=== PATIENT | female | born 1955 | race Caucasian/White ===

== ENCOUNTER 2016-07-27 01:20 | Observation (INO) | payer OTHER ==
[2016-07-27] MEDS ORDERED: DUONEB 0.5-3 MG/3 ml Neb IH ONE ×3 (01:31→06:32)
[2016-07-27] MEDS ORDERED: Reglan 10 MG/2 ML IV ONE (01:33)
[2016-07-27] MEDS ORDERED: Sodium Chloride 0.9% 1000 ML 1,000 ML IV SCH ×2 (01:45→05:48)
[2016-07-27 01:46] LABS: Mean Cell Volume 94.3 fl (78-100); Mean Corpuscular Hemoglobin 28.7 pg (26-32); Mean Platelet Volume 9.5 fl (6-9.5); Platelet Count 494 K/mm3 (150-450); Red Blood Count 4.18 M/mm3 (4.1-5.4); Red Cell Distribution Width 17.6 % (11.5-14.0); White Blood Count 19.4 K/mm3 (4.0-10.5)
[2016-07-27 01:55] LABS: Lactic Acid 2.2 (0.4-2.0); VBG BASE EXCESS 5.1 (-2.0-2.0); VBG CARBOXYHEMOGLOBIN 7.7 % T HGB (0.0-6.9); VBG HCO3- 32.4 meq/L (22-28); VBG HEMOGLOBIN 11.7; VBG O2 SATURATION 80.6 (95-100); VBG POTASSIUM 3.5 (3.5-5.1); VBG pH 7.34 (7.32-7.42)
--- NOTE | 2016-07-27 01:56 | ERPHSYRPT ---
- History of Present Illness Time Seen by Provider: 07/27/16 01:23 Source: patient, family Physician History: CC: headache Hx: 60 y/o patient of Dr Bean. She has chronic pain syndrome. Basically home bound and gets house calls. She has increased rib, shoulder, hip pain. Uses fentanyl patch. She might be on abtx for unknown reason. She has increased headache over her normal headaches so family wanted to her to come to the hospital. She was upset with family and did not want to come. By the time she was back she was very short of breath and had been off her home oxygen. She reports increased dyspnea all day today. Mild chronic cough. No fever or chills. No fall or injury reported. Pt and are poor historians. Timing/Duration: today Severity: severe Allergies/Adverse Reactions: aspirin [From Aspirin Regimen Cheri/Calcium] Adverse Reaction (Mild, Verified 11:03) Nausea calcium carbonate [From Aspirin Regimen Cheri/Calcium] Adverse Reaction (Mild, Verified 11/18/15 11:03) Nausea Home Medications: Albuterol Sulfate [Ventolin Hfa] 18 gm IH QID 07/27/16 [History] Amitriptyline HCl 100 mg PO HS 07/27/16 [History] Bisacodyl 5 mg [Dulcolax 5 mg] 5 mg PO DAILY PRN 07/27/16 [History] Cefdinir [Omnicef] 300 mg PO BID 07/27/16 [History] Escitalopram Oxalate [Lexapro] 20 mg PO DAILY 07/27/16 [History] Famotidine 20 mg [Pepcid 20 MG] 20 mg PO HS 07/27/16 [History] Fentanyl 1 each TD Q3D 07/27/16 [History] Fluticasone/Salmeterol 230/21 [Advair Hfa 230/21 Mcg COMMON CANISTER*] 2 puff IH BIDRT 07/27/16 [History] Hydrocodone Bit/Acetaminophen [Fluker 10-325 Tablet] 1 each PO QID PRN 07/27/16 [ History] Ipratropium [place] Hfa [Atrovent HFA MDI] 2 puff IH BID 07/27/16 [History] Loratadine 10 mg [Claritin 10 mg] 10 mg PO DAILY 07/27/16 [History] Lorazepam 1 mg [Ativan 1 MG] 1 mg PO BID 07/27/16 [History] Naproxen 500 mg PO QID PRN 07/27/16 [History] Olanzapine Odt 5 mg [Zyprexa Zydis 5 MG] 5 mg PO BID 07/27/16 [History] PANTOPRAZOLE 40 mg Tablet [Protonix 40MG Tablet] 40 mg PO DAILY 07/27/16 [ History] Potassium Chloride 10 Meq Tab* [Klor Con 10 MEQ] 10 meq PO BID 07/27/16 [ History] Pramipexole Di-HCl [Mirapex] 0.125 mg PO HS 07/27/16 [History] Prednisone 10 mg [Deltasone 10 mg] 10 mg PO DAILY 07/27/16 [History] Pregabalin [Lyrica 100Mg] 200 mg PO BID 07/27/16 [History] Primidone 50 MG [Mysoline 50Mg] 50 mg PO BID 07/27/16 [History] Promethazine HCl 12.5 mg PO QID PRN 07/27/16 [History] Roflumilast [Daliresp] 500 mcg PO HS 07/27/16 [History] Tizanidine HCl 2 mg PO HS 07/27/16 [History] Trazodone HCl 50 mg [Desyrel 50 mg] 50 mg PO HS 07/27/16 [History] Hx Tetanus, Diphtheria Vaccination/Date Given: Yes Hx Influenza Vaccination/Date Given: No Hx Pneumococcal Vaccination/Date Given: No - Review of Systems Constitutional: Fatigue, Malaise, Weakness, No Fever, No Chills Eyes: No Symptoms Ears, Nose, & Throat: No Symptoms Respiratory: Cough, Dyspnea (worse with exertion) Cardiac: Chest Pain (rib) Abdominal/Gastrointestinal: No Nausea, No Vomiting Musculoskeletal: Back Pain, Joint Pain (shoulder and hips), No Injury Skin: No Rash Neurological: Headache, No Focal Weakness All Other Systems: Reviewed and Negative - Past Medical History Pertinent Past Medical History: Yes Neurological History: Dementia, Migraines ENT History: No Pertinent History Cardiac History: No Pertinent History Respiratory History: COPD Endocrine Medical History: Hypothyroidism Musculoskeletal History: Fibromyalgia, Osteoarthritis, Osteoporosis GI Medical History: GERD, Hernia History: No Pertinent History Psycho-Social History: Anxiety, Bipolar, Depression, Eating Disorders, Panic Disorder Female Reproductive Disorders: Abnormal Uterine Bleeding Other Medical History: NEURO CHANGES TO LEGS AND ARMS - Past Surgical History Past Surgical History: Yes Neuro Surgical History: No Pertinent History Cardiac: No Pertinent History Respiratory: No Pertinent History Gastrointestinal: No Pertinent History Genitourinary: No Pertinent History Musculoskeletal: No Pertinent History Female Surgical History: No Pertinent History Other Surgical History: scope on lungs last yr,bx done"cleaned my lungs", childbirth natural x three,jaw screws place -had rib bone placed to jaw,fatty tumors removed from back and right hand,right hand nodule removed in september 2011 - Social History Smoking Status: Former smoker (smoked 1 1/2 ppd up to two weeks ago) How long have you smoked: 44 Exposure to second hand smoke: No Alcohol Use: None Drug Use: none Patient Lives Alone: No Significant Family History: no pertinent family hx - Female History Hx Now: No - Nursing Vital Signs Nursing Vital Signs: Initial Vital Signs Temperature 97.4 F Temperature Source Rectal Pulse Rate 90 Respiratory Rate 14 Blood Pressure [] 102/51 Pain Intensity 8 - Physical Exam General Appearance: alert Eye Exam: PERRL/EOMI Ears, Nose, Throat Exam: moist mucous membranes Neck Exam: supple Respiratory Exam: respiratory distress (arrived tachypneic), wheezing Cardiovascular Exam: regular rate/rhythm Gastrointestinal/Abdomen Exam: soft, No tenderness, No distention Back Exam: normal inspection Extremity Exam: normal inspection, No pedal edema Neurologic Exam: alert, other (slightly confused), No motor deficits Skin Exam: warm, dry, No rash - Course Nursing assessment & vital signs reviewed: Yes EKG Interpreted by Me: RATE (93), Sinus Rhythm, NORMAL AXIS, NORMAL INTERVALS ( QTc 423), NORMAL QRS, NORMAL ST-T - Radiology Exams cxr X-ray Interpretation: Reviewed by me (copd) - CT Exams head CT Interpretation: Negative, Tele-radiologist Report Ordered Tests: Active Orders 24 hr Category Date Time Status CO2 Monitoring STAT Care 07/27/16 01:31 Active Interstate Planner STAT Care 07/27/16 01:31 Active EKG-ER Only STAT Care 07/27/16 01:31 Active IV Insertion STAT Care 07/27/16 01:31 Active Oxygen-ED Only NASAL CANNULA 3 lpm Care 07/27/16 01:31 Active Pulse Oximetry (ED) STAT Care 07/27/16 01:31 Active Rectal Temperature STAT Care 07/27/16 01:31 Active CHEST 1 VIEW (PORTABLE) Stat Exams 07/27/16 01:31 Taken HEAD WITHOUT CONTRAST [CT] Stat Exams 07/27/16 03:35 Taken CBC W DIFF Stat Lab 07/27/16 01:40 Completed CMP Stat Lab 07/27/16 01:40 Completed Lactic Acid Stat Lab 07/27/16 03:31 Completed Lactic Acid Urgent Lab 07/27/16 01:31 Completed MAGNESIUM Stat Lab 07/27/16 01:40 Completed Manual Differential NC Stat Lab 07/27/16 01:40 Completed PROTIME WITH INR Stat Lab 07/27/16 01:40 Completed PTT Stat Lab 07/27/16 01:40 Completed TROPONIN Stat Lab 07/27/16 01:40 Completed VENOUS BLOOD GAS Urgent Lab 07/27/16 01:31 Completed Respiratory Nebulizer STAT RT 07/27/16 01:32 Completed Medication Summary Generic Name Dose Route Start Last Admin Trade Name Freq PRN Reason Stop Dose Admin Sodium Chloride 1,000 mls @ 50 mls/hr 07/27/16 01:45 07/27/16 02:08 Sodium Chloride 0.9% 1000 Ml IV 08/26/16 01:44 50 mls/hr .Q20H ALFIE Administration Magnesium Sulfate/Dextrose 100 mls @ 100 mls/hr 07/27/16 02:30 07/27/16 02:59 Magnesium 1 Gm / 100 Ml D5w IV 07/27/16 04:29 100 mls/hr Q1H ALFIE Administration Discontinued Medications Generic Name Dose Route Start Last Admin Trade Name Freq PRN Reason Stop Dose Admin Albuterol/Ipratropium 3 ml 07/27/16 01:31 07/27/16 02:11 Duoneb 0.5-3 Mg/3 Ml Neb IH 07/27/16 01:32 3 ml STAT ONE Administration Albuterol/Ipratropium Confirm 07/27/16 01:32 Duoneb 0.5-3 Mg/3 Ml Neb Administered 07/27/16 01:33 Dose 3 ml IH .STK-MED ONE Fentanyl Citrate 25 mcg 07/27/16 02:50 07/27/16 03:05 Sublimaze 100 Mcg/2 Ml IV 07/27/16 02:51 25 mcg STAT ONE Administration Fentanyl Citrate Confirm 07/27/16 03:00 Sublimaze 100 Mcg/2 Ml Administered 07/27/16 03:01 Dose 100 mcg .ROUTE .STK-MED ONE Fentanyl Citrate 50 mcg 07/27/16 04:17 07/27/16 04:32 Sublimaze 100 Mcg/2 Ml IV 07/27/16 04:18 50 mcg STAT ONE Administration Fentanyl Citrate Confirm 07/27/16 04:27 Sublimaze 100 Mcg/2 Ml Administered 07/27/16 04:28 Dose 100 mcg .ROUTE .STK-MED ONE Metoclopramide HCl 10 mg 07/27/16 01:33 07/27/16 02:08 Reglan 10 Mg/2 Ml IV 07/27/16 01:34 10 mg STAT ONE Administration Metoclopramide HCl Confirm 07/27/16 02:00 Reglan 10 Mg/2 Ml Administered 07/27/16 02:01 Dose 10 mg .ROUTE .STK-MED ONE Lab/Rad Data: Laboratory Result Diagrams 07/27/16 01:40 07/27/16 01:40 Laboratory Results 07/27/16 07/27/16 07/27/16 Range/Units 03:31 01:40 01:40 WBC (4.0-10.5) K/mm3 RBC (4.1-5.4) M/mm3 Hgb (12.0-16.0) gm/dl Hct (35-47) % MCV (78-100) fl MCH (26-32) pg MCHC (32-36) g/dl RDW (11.5-14.0) % Plt Count (150-450) K/mm3 MPV (6-9.5) fl Segmented Neutrophils (36.0-66.0) % Lymphocytes (Manual) (24-44) % Monocytes (Manual) (0.0-12.0) % Eosinophils (Manual) (0.00-3.0) % Differential Comment Platelet Estimate (NORMAL) INR 0.88 (0.8-3.0) APTT 32.2 (25.3-37.0) SECONDS VBG pH (7.32-7.42) VBG pCO2 at Pat Temp (42-55) mm/Hg VBG pO2 at Pat Temp (25-40) mm/Hg VBG HCO3 (22-28) meq/L VBG O2 Sat (Noman) (95-100) VBG Base Excess (-2.0-2.0) VBG Hemoglobin VBG Carboxyhemoglobin (0.0-6.9) % T HGB POC Potassium (3.5-5.1) Sodium 143 (136-145) mEq/L Potassium 3.7 (3.5-5.1) mEq/L Chloride 102 (98-107) mEq/L Carbon Dioxide 31.6 (21-32) mEq/L Anion Gap 12.7 (5-15) MEQ/L BUN 15 (9-20) mg/dL Creatinine 0.91 (0.55-1.30) mg/dl Estimated GFR > 60 ML/MIN Glucose 160 H (70-110) MG/DL Lactic Acid 1.9 (0.4-2.0) Calcium 9.6 (8.5-10.1) mg/dL Magnesium 1.7 L (1.8-2.4) mg/dL Total Bilirubin 0.1 L (0.2-1.0) mg/dL AST 14 L (15-37) U/L ALT 19 (12-78) U/L Alkaline Phosphatase 121 H (46-116) U/L Troponin I < 0.017 (0.000-0.056) ng/ml Serum Total Protein 7.1 (6.4-8.2) gm/dL Albumin 3.1 L (3.4-5.0) g/dL 07/27/16 07/27/16 Range/Units 01:40 01:31 WBC 19.4 H (4.0-10.5) K/mm3 RBC 4.18 (4.1-5.4) M/mm3 Hgb 12.0 (12.0-16.0) gm/dl Hct 39.4 (35-47) % MCV 94.3 (78-100) fl MCH 28.7 (26-32) pg MCHC 30.5 L (32-36) g/dl RDW 17.6 H (11.5-14.0) % Plt Count 494 H (150-450) K/mm3 MPV 9.5 (6-9.5) fl Segmented Neutrophils 61 (36.0-66.0) % Lymphocytes (Manual) 28 (24-44) % Monocytes (Manual) 10 (0.0-12.0) % Eosinophils (Manual) 1 (0.00-3.0) % Differential Comment NORMAL Platelet Estimate INCREASED (NORMAL) INR (0.8-3.0) APTT (25.3-37.0) SECONDS VBG pH 7.34 (7.32-7.42) VBG pCO2 at Pat Temp 60 H (42-55) mm/Hg VBG pO2 at Pat Temp 41 H (25-40) mm/Hg VBG HCO3 32.4 H* (22-28) meq/L VBG O2 Sat (Noman) 80.6 L (95-100) VBG Base Excess 5.1 H (-2.0-2.0) VBG Hemoglobin 11.7 VBG Carboxyhemoglobin 7.7 H* (0.0-6.9) % T HGB POC Potassium 3.5 (3.5-5.1) Sodium (136-145) mEq/L Potassium (3.5-5.1) mEq/L Chloride (98-107) mEq/L Carbon Dioxide (21-32) mEq/L Anion Gap (5-15) MEQ/L BUN (9-20) mg/dL Creatinine (0.55-1.30) mg/dl Estimated GFR ML/MIN Glucose (70-110) MG/DL Lactic Acid 2.2 H (0.4-2.0) Calcium (8.5-10.1) mg/dL Magnesium (1.8-2.4) mg/dL Total Bilirubin (0.2-1.0) mg/dL AST (15-37) U/L ALT (12-78) U/L Alkaline Phosphatase (46-116) U/L Troponin I (0.000-0.056) ng/ml Serum Total Protein (6.4-8.2) gm/dL Albumin (3.4-5.0) g/dL - Progress Progress Note: 07/27/16 04:55 Pt was very short of breath on arrival. This improved with nebs and oxygen and rest. Pt states she uses a wheelchair at home and rarely ambulates. She also uses home oxygen. The arthritis pain was better after reglan but headache continued. Fentanyl given as well as mag sulfate without improvement in headache so CT was done which is negative. She does not want to go home as she feels poorly. No fever. She does appear to have COPD exac. Leukocytosis possibly secondary to chronic prednisone use. Called Dr Bean who advised melissa bran. Will see patient in: hospital (observation) Counseled pt/family regarding: lab results, diagnosis, need for follow-up, rad results - Departure Time of Disposition: 04:57 Departure Disposition: Observation Clinical Impression: COPD with exacerbation, Headache Condition: Fair Critical Care Time: No
[2016-07-27] MEDS ORDERED: Reglan 10 MG/2 ML ONE (02:00)
[2016-07-27] MEDS ORDERED: Sodium Chloride 0.9% 1000 ML 1,000 ML ONE (02:00)
[2016-07-27 02:09] LABS: INR 0.88 (0.8-3.0); PROTIME 9.9 SECONDS (9.95-12.35)
[2016-07-27 02:11] LABS: PTT 32.2 SECONDS (25.3-37.0)
[2016-07-27 02:20] LABS: ALBUMIN 3.1 g/dL (3.4-5.0); ALKALINE PHOSPHATASE 121 U/L (46-116); ANION GAP 12.7 MEQ/L (5-15); BILIRUBIN,TOTAL 0.1 mg/dL (0.2-1.0); BLOOD UREA NITROGEN 15 mg/dL (9-20); CHLORIDE 102 mEq/L (98-107); Carbon Dioxide 31.6 mEq/L (21-32); Glucose 160 MG/DL (70-110); MAGNESIUM 1.7 mg/dL (1.8-2.4); Potassium 3.7 mEq/L (3.5-5.1); SGOT/AST 14 U/L (15-37); SGPT/ALT 19 U/L (12-78); SODIUM 143 mEq/L (136-145); Total Protein 7.1 gm/dL (6.4-8.2)
[2016-07-27 02:23] LABS: TROPONIN < 0.017 ng/ml (0.000-0.056)
[2016-07-27] MEDS ORDERED: Magnesium 1 Gm / 100 Ml D5W*** 200 ML IV ONE (02:30)
[2016-07-27] MEDS: Magnesium 1 Gm / 100 Ml D5W*** 100 ML IV SCH ×2 (02:31→02:59)
[2016-07-27 02:50] LABS: Eosinophil 1 % (0.00-3.0); Platelet Estimate INCREASED (NORMAL); Total Cells Counted 100
[2016-07-27] MEDS ORDERED: SUBLIMAZE 100 MCG/2 ML IV ONE ×2 (02:50→04:17)
[2016-07-27] MEDS ORDERED: SUBLIMAZE 100 MCG/2 ML ONE ×2 (03:00→04:27)
[2016-07-27] MEDS ORDERED: PROVENTIL 2.5 MG/3 ML NEB IH ONE ×2 (04:59→05:18)
[2016-07-27] MEDS ORDERED: ROCEPHIN 1 Gm-D5w 50 ml Bag** 1 G/50 ML IVPB IV ONE ×2 (04:59→05:10)
[2016-07-27] MEDS ORDERED: TYLENOL 325 MG PO PRN (05:48)
[2016-07-27] MEDS: DUONEB 0.5-3 MG/3 ml Neb IH SCH ×5 (06:55→23:56)
[2016-07-27] MEDS ORDERED: Norco 10/325 MG Tablet PO PRN (08:57)
[2016-07-27] MEDS ORDERED: NON-FORMULARY ITEM (Promethazine Hcl [Promethazine Hcl] 12.5 MG) PO PRN (08:57)
[2016-07-27] MEDS ORDERED: DULCOLAX 5 MG PO PRN (08:57)
[2016-07-27] MEDS ORDERED: PHENERGAN 25 MG PO PRN (09:14)
--- NOTE | 2016-07-27 09:32 | XRAY ---
Indication: Short of breath. Comparison: January 01, 2016. Portable apical lordotic chest remains hyperinflated with again minimal right upper lobe fibrosis/scarring. No focal infiltrate, consolidation, or large effusion. Heart is not enlarged. Vascularity normal. Bony thorax intact again with mild osteopenia and degenerative changes. Impression: Stable nonacute hyperinflated chest with chronic features.
[2016-07-27] MEDS ORDERED: Zanaflex 4 MG PO PRN (09:33)
--- NOTE | 2016-07-27 09:34 | XRAY ---
Indication: Headache. Multiple contiguous axial images obtained through the head without contrast. Comparison: November 25, 2010. Stable right anterior internal capsule remote lacunar infarct. No acute intracranial hemorrhage, abnormal extra-axial fluid collection, or mass effect. Fourth ventricle is midline without hydrocephalus. Douglas-white matter differentiation preserved. Bony calvarium intact. Visualized paranasal sinuses are clear. There is now partial opacification of the right mastoid air cells. Impression: 1. Stable right internal capsule lacunar infarct. 2. No acute intracranial abnormalities. 3. New partial opacification of the right mastoid air cells presumed inflammatory. Comment: Preliminary interpretation was made by [facility]. No critical discrepancy. CTDI 71.05
[2016-07-27] MEDS: Protonix 40MG Tablet PO SCH (10:00)
[2016-07-27] MEDS ORDERED: NON-FORMULARY ITEM (Escitalopram Oxalate [Lexapro] 20 MG) PO SCH (10:00)
[2016-07-27] MEDS: Advair Hfa 230/21 Mcg COMMON CANISTER IH SCH ×3 (10:59→19:22)
[2016-07-27 12:44] LABS: COMPLETE URINE MICROSCOPIC? NO; Collection Type VOID; Ph 5.5 (5-6)
[2016-07-27] MEDS: DELTASONE 10 MG PO SCH (13:18)
[2016-07-27] MEDS: Lexapro 10 MG PO SCH (13:18)
[2016-07-27] MEDS: Ativan 1 MG PO SCH ×2 (13:18→21:52)
[2016-07-27] MEDS: Klor Con 10 MEQ PO SCH ×2 (13:18→21:51)
[2016-07-27] MEDS: zyPREXA 5MG TABLET PO SCH ×2 (13:19→21:52)
[2016-07-27] MEDS: LYRICA 100MG PO SCH ×2 (13:19→21:52)
[2016-07-27] MEDS: MYSOLINE 50MG PO SCH (13:19)
[2016-07-27] MEDS: CLARITIN 10 MG PO SCH (13:19)
--- NOTE | 2016-07-27 15:24 | PCM.HP ---
History of Present Illness - Chief Complaint Chief Complaint: Headache and COPD exacerbation History of Present Illness: is a 60 year old female pt of mine from [facility] with chronic COPD and chronic pain from osteonecrosis who was brought to ER last night. She has no memory of why she was brought in. Per ER note it was due to increased headache. The ER stated pt wanted to stay last night. Today she is asking to go home. Pt does have some dementia that seems to wax and wane in intensity. - Review of Systems All Other Systems: Unable due to dementia Medications & Allergies Home Medications: Home Medication List Albuterol Sulfate [Ventolin Hfa] 18 gm IH QID 07/27/16 [History Confirmed ] Albuterol/Ipratropium 3ml Neb* [DUONEB 0.5-3 MG/3 ml Neb] 3 ml IH QID [History Confirmed 07/27/16] Amitriptyline HCl 100 mg PO HS 07/27/16 [History Confirmed 07/27/16] Bisacodyl 5 mg [Dulcolax 5 mg] 5 mg PO DAILY PRN 07/27/16 [History Confirmed 07/27/16] Cefdinir [Omnicef] 300 mg PO BID 07/27/16 [History Confirmed 07/27/16] Escitalopram Oxalate [Lexapro] 20 mg PO DAILY 07/27/16 [History Confirmed ] Famotidine 20 mg [Pepcid 20 MG] 20 mg PO HS 07/27/16 [History Confirmed ] Fentanyl 100 Mcg Patch [Duragesic 100 MCG Patch] 100 mcg TOP Q3D 07/27/16 [History Confirmed 07/27/16] Fentanyl [Duragesic 12MCG Patch] 12 mcg TOP Q3D 07/27/16 [History Confirmed ] Fluticasone/Salmeterol 230/21 [Advair Hfa 230/21 Mcg COMMON CANISTER*] 2 puff IH BIDRT 07/27/16 [History Confirmed 07/27/16] Hydrocodone Bit/Acetaminophen [[place] 10-325 Tablet] 1 each PO QID PRN PRN [History Confirmed 07/27/16] Ipratropium [place] Hfa [Atrovent HFA MDI] 2 puff IH BID 07/27/16 [History Confirmed 07/27/16] Loratadine 10 mg [Claritin 10 mg] 10 mg PO DAILY 07/27/16 [History Confirmed 07/27/16] Lorazepam 1 mg [Ativan 1 MG] 1 mg PO BID 07/27/16 [History Confirmed 07/27] Olanzapine [Zyprexa] 5 mg PO BID 07/27/16 [History Confirmed 07/27/16] PANTOPRAZOLE 40 mg Tablet [Protonix 40MG Tablet] 40 mg PO DAILY 07/27/16 [ History Confirmed 07/27/16] Potassium Chloride 10 Meq Tab* [Klor Con 10 MEQ] 10 meq PO BID 07/27/16 [ History Confirmed 07/27/16] Pramipexole Di-HCl [Mirapex] 0.125 mg PO HS 07/27/16 [History Confirmed 07/27/16 ] Prednisone 10 mg [Deltasone 10 mg] 10 mg PO DAILY 07/27/16 [History Confirmed 07/27/16] Pregabalin [Lyrica 100Mg] 200 mg PO BID 07/27/16 [History Confirmed 07/27/16] Primidone 50 MG [Mysoline 50Mg] 50 mg PO DAILY 07/27/16 [History Confirmed 07/27/16] Primidone 50 MG [Mysoline 50Mg] 100 mg PO HS 07/27/16 [History Confirmed ] Promethazine HCl 12.5 mg PO QID PRN 07/27/16 [History Confirmed 07/27/16] Roflumilast [Daliresp] 500 mcg PO HS 07/27/16 [History Confirmed 07/27/16] Tizanidine HCl 2 mg PO HS 07/27/16 [History Confirmed 07/27/16] Trazodone HCl 50 mg [Desyrel 50 mg] 50 mg PO HS 07/27/16 [History Confirmed 07/27/16] Allergies/Adverse Reactions: Allergies Allergy/AdvReac Type Severity Reaction Status Date / Time aspirin AdvReac Mild Nausea Verified 11/18/15 11:03 [From Aspirin Regimen Cheri/Calcium] calcium carbonate AdvReac Mild Nausea Verified 11/18/15 11:03 [From Aspirin Regimen Cheri/Calcium] - Past Medical History Past Medical History: Yes Neurological History: Dementia, Migraines ENT History: No Pertinent History Cardiac History: No Pertinent History Respiratory History: COPD Endocrine Medical History: Hypothyroidism Musculoskelatal History: Fibromyalgia, Osteoarthritis, Osteoporosis GI Medical History: GERD, Hernia History: No Pertinent History Pyscho-Social History: Anxiety, Bipolar, Depression, Eating Disorders, Panic Disorder Reproductive Disorders: Abnormal Uterine Bleeding Comment: NEURO CHANGES TO LEGS AND ARMS - Female History Hx Last Menstrual Period: n/a Are you now?: No - Past Surgical History Past Surgical History: Yes Neuro Surgical History: No Pertinent History Cardiac History: No Pertinent History Respiratory Surgery: No Pertinent History GI Surgical History: No Pertinent History Genitourinary Surgical Hx: No Pertinent History Musculskeletal Surgical Hx: No Pertinent History Female Surgical History: Hysterectomy, Tubal Ligation Other Surgical History: scope on lungs,bx done"cleaned my lungs",childbirth natural x three,jaw screws place -had rib bone placed to jaw,fatty tumors removed from back and right hand,right hand nodule removed in september 2011 - Social History Smoking Status: Current every day smoker How long have you smoked: 40 Exposure to second hand smoke: No Alcohol: None Drug Use: none Significant Family History: no pertinent family hx - Physical Exam Vital Signs: Vital Signs - 24 hr Temp Pulse Resp BP Pulse Ox 07/27/16 14:38 84 20 96 07/27/16 12:20 98 F 80 20 98/55 97 07/27/16 12:00 20 07/27/16 11:00 87 18 96 07/27/16 07:30 83 18 96 07/27/16 07:06 97.8 F 95 H 18 153/93 94 L 07/27/16 05:53 98.4 F 87 16 134/60 94 L 07/27/16 05:23 88 19 98 07/27/16 05:15 86 20 99 07/27/16 04:23 90 14 102/51 96 07/27/16 02:33 92 H 22 116/51 98 07/27/16 02:11 95 H 15 98 07/27/16 02:09 94 H 22 99/56 98 07/27/16 01:47 97.4 F 91 L Oxygen-Last 24 hours O2 Percentage 2 Liters = 28% O2 Percentage 3 Liters = 32% O2 Percentage 2 Liters = 28% O2 Percentage 3 Liters = 32% O2 Percentage 3 Liters = 32% O2 Percentage 3 Liters = 32% O2 Percentage 3 Liters = 32% General Appearance: no apparent distress Neurologic Exam: alert, oriented x 3, cooperative Eye Exam: eyes nml inspection Respiratory Exam: diminished breath sounds (poor air exchange), prolonged expirations, wheezing (scattered exp wheezes), No crackles/rales, No rhonchi Cardiovascular Exam: regular rate/rhythm, No murmur Back Exam: normal inspection Extremity Exam: normal inspection, No pedal edema Skin Exam: normal color, warm, dry Results - Labs Lab/Micro Results: Lab Results-Last 24 Hours 07/27/16 Range/Units 12:40 Ur Collection Type VOID Urine Color YELLOW (YELLOW) Urine Appearance CLEAR (CLEAR) Urine pH 5.5 (5-6) Ur Specific Candor >=1.030 (1.005-1.025) Urine Protein NEGATIVE (Negative) Urine Glucose (UA) NEGATIVE (NEGATIVE) mg/dL Urine Ketones NEGATIVE (NEGATIVE) Urine Nitrite NEGATIVE (NEGATIVE) Urine Bilirubin NEGATIVE (NEGATIVE) Urine Urobilinogen 0.2 (0-1) mg/dL Urine WBC (Auto) NEGATIVE (NEGATIVE) Urine RBC (Auto) NEGATIVE (0-5) Gadiel/ul Specimen Received 07/27/16 1245 - Other Procedures and Tests Respiratory Therapy 07/27/16 11:00 Respiratory Nebulizer Q4H 07/27/16 19:00 Respiratory MDI BID Assessment/Plan (1) COPD with exacerbation Current Visit: Yes Status: Acute Assessment & Plan: She started po omnicef at home. Currently on IV rocephin and zithromax. Code(s): J44.1 - CHRONIC OBSTRUCTIVE PULMONARY DISEASE W (ACUTE) EXACERBATION (2) Leukocytosis Current Visit: Yes Status: Acute Assessment & Plan: She is only on 10mg po prednisone at home daily so I don't know if this fully explains the leukocytosis or not. I told the patient we would recheck this afternoon, however I think it's in her best interest to stay and receive IV antibiotics due to the COPD exacerbation. Code(s): D72.829 - ELEVATED WHITE BLOOD CELL COUNT, UNSPECIFIED (3) Headache Current Visit: Yes Status: Resolved Qualifiers: Headache type: unspecified Headache chronicity pattern: unspecified pattern Intractability: not intractable Qualified Code(s): R51 - Headache Assessment & Plan: No complaints of VILLA today. Code(s): R51 - HEADACHE (4) Lewy body dementia Current Visit: No Status: Chronic Qualifiers: Dementia behavioral disturbance: without behavioral disturbance Qualified Code(s): G31.83 - Dementia with Lewy bodies; F02.80 - Dementia in other diseases classified elsewhere without behavioral disturbance Assessment & Plan: often she is oriented with fair memory, but she really does not remember why she had to come to the hospital last night. Code(s): G31.83 - DEMENTIA WITH LEWY BODIES; F02.80 - DEMENTIA IN OTH DISEASES CLASSD ELSWHR W/O BEHAVRL DISTURB (5) Osteonecrosis Current Visit: No Status: Chronic Assessment & Plan: chronic, in R hip, R knee particularly. At home she is largely bed bound. Prognosis is poor; she has seen Dr. Jones a few times from [facility] in and he has done hip and knee injections with some relief (shoulder injection done on L shoulder instead of R with increasing pain now in L shoulder). I don't know why they don't utilize a wheelchair more, likely due to the old house they are currently renting. Code(s): M87.9 - OSTEONECROSIS, UNSPECIFIED (6) Poor social situation Current Visit: No Status: Chronic Assessment & Plan: She lives with her SO (I believe) and her daughter, Angelica. I do home visits. The condition of the home is poor; however currently they are being evicted and I'm unsure the status of that. We did contact the daughter and she advised the pt had increasing nightmares and the daughter would like us to keep her and observe. Code(s): Z65.9 - PROBLEM RELATED TO UNSPECIFIED PSYCHOSOCIAL CIRCUMSTANCES (7) Tobacco abuse Current Visit: No Status: Chronic Assessment & Plan: Currently smoking, nicotine patch would be ok. Code(s): Z72.0 - TOBACCO USE
[2016-07-27 15:53] LABS: Mean Cell Volume 95.1 fl (78-100); Mean Platelet Volume 9.3 fl (6-9.5); Platelet Count 393 K/mm3 (150-450); Red Blood Count 3.67 M/mm3 (4.1-5.4); Red Cell Distribution Width 17.6 % (11.5-14.0); White Blood Count 14.1 K/mm3 (4.0-10.5)
[2016-07-27 15:54] LABS: Mean Corpuscular Hemoglobin 29.1 pg (26-32)
[2016-07-27 16:35] LABS: BAND 2 % (0.0-2.0); Basophil 2 % (0.0-1.0); Eosinophil 2 % (0.00-3.0); Hypochromia 1+; Metamyelocyte 4 %; Platelet Estimate NORMAL (NORMAL); Total Cells Counted 100; Toxic Granulation 1+
[2016-07-27] MEDS ORDERED: MYSOLINE 50MG PO SCH (22:00)
[2016-07-27] MEDS ORDERED: Mirapex 0.5 MG Tablet PO SCH (22:00)
[2016-07-27] MEDS ORDERED: TIZANIDINE HCL 2 MG PO SCH (22:00)
[2016-07-27] MEDS ORDERED: ROCEPHIN 1 Gm-D5w 50 ml Bag** 1 G/50 ML IVPB IV SCH (22:00)
[2016-07-27] MEDS ORDERED: NON-FORMULARY ITEM (Pramipexole Di-Hcl [Mirapex] 0.125 MG) PO SCH (22:00)
[2016-07-27] MEDS ORDERED: Zanaflex 4 MG PO SCH (22:00)
[2016-07-27] MEDS ORDERED: DESYREL 50 MG PO SCH (22:00)
[2016-07-27] MEDS ORDERED: Pepcid 20 MG PO SCH (22:00)
[2016-07-27] MEDS ORDERED: Nicoderm CQ 21 MG TOP SCH (22:15)
[2016-07-28] MEDS: DUONEB 0.5-3 MG/3 ml Neb IH SCH ×3 (03:21→10:05)
[2016-07-28] MEDS: Advair Hfa 230/21 Mcg COMMON CANISTER IH SCH (06:48)
--- NOTE | 2016-07-28 09:30 | PCM.DCORD ---
- Discharge Discharge Date: 07/28/16 Disposition: Home, Self-Care Condition: Fair Prescriptions: Continue Hydrocodone Bit/Acetaminophen [[place] 10-325 Tablet] 1 each PO QID PRN PRN PRN Reason: Pain Potassium Chloride 10 Meq Tab* [Klor Con 10 MEQ] 10 meq PO BID Ipratropium [place] Hfa [Atrovent HFA MDI] 2 puff IH BID Fluticasone/Salmeterol 230/21 [Advair Hfa 230/21 Mcg COMMON CANISTER*] 2 puff IH BIDRT Albuterol Sulfate [Ventolin Hfa] 18 gm IH QID Prednisone 10 mg [Deltasone 10 mg] 10 mg PO DAILY Loratadine 10 mg [Claritin 10 mg] 10 mg PO DAILY Famotidine 20 mg [Pepcid 20 MG] 20 mg PO HS Cefdinir [Omnicef] 300 mg PO BID Roflumilast [Daliresp] 500 mcg PO HS Pramipexole Di-HCl [Mirapex] 0.125 mg PO HS Primidone 50 MG [Mysoline 50Mg] 50 mg PO DAILY Escitalopram Oxalate [Lexapro] 20 mg PO DAILY Bisacodyl 5 mg [Dulcolax 5 mg] 5 mg PO DAILY PRN PRN Reason: bowel care Trazodone HCl 50 mg [Desyrel 50 mg] 50 mg PO HS Pregabalin [Lyrica 100Mg] 200 mg PO BID Lorazepam 1 mg [Ativan 1 MG] 1 mg PO BID Promethazine HCl 12.5 mg PO QID PRN PRN Reason: Nausea PANTOPRAZOLE 40 mg Tablet [Protonix 40MG Tablet] 40 mg PO DAILY Tizanidine HCl 2 mg PO HS Amitriptyline HCl 100 mg PO HS Fentanyl [Duragesic 12MCG Patch] 12 mcg TOP Q3D Fentanyl 100 Mcg Patch [Duragesic 100 MCG Patch] 100 mcg TOP Q3D Olanzapine [Zyprexa] 5 mg PO BID Primidone 50 MG [Mysoline 50Mg] 100 mg PO HS Albuterol/Ipratropium 3ml Neb* [DUONEB 0.5-3 MG/3 ml Neb] 3 ml IH QID Follow up with: JETT RUSSELL [Primary Care Provider] -
[2016-07-28] MEDS: Lexapro 10 MG PO SCH (09:45)
[2016-07-28] MEDS: LYRICA 100MG PO SCH (09:46)
[2016-07-28] MEDS: CLARITIN 10 MG PO SCH (09:46)
[2016-07-28] MEDS: Protonix 40MG Tablet PO SCH (09:46)
[2016-07-28] MEDS: Ativan 1 MG PO SCH (09:46)
[2016-07-28] MEDS: MYSOLINE 50MG PO SCH (09:46)
[2016-07-28] MEDS: DELTASONE 10 MG PO SCH (09:46)
[2016-07-28] MEDS: Klor Con 10 MEQ PO SCH (09:46)
[2016-07-28] MEDS: zyPREXA 5MG TABLET PO SCH (09:46)
[2016-07-28] MEDS ORDERED: DURAGESIC TOP SCH (10:00)
[2016-07-28 10:38] VITALS: BP 117/59; PULSE 105; O2SAT 95
--- NOTE | 2016-07-28 19:51 | PCM.DS ---
Discharge Summary Date of Admission: 07/27/16 05:35 Date of Discharge: 07/28/16 Admitting Physician: JETT BEAN Primary Care Provider: JETT BEAN Allergies Allergies aspirin [From Aspirin Regimen Cheri/Calcium] Adverse Reaction (Mild, Verified 11:03) Nausea calcium carbonate [From Aspirin Regimen Cheri/Calcium] Adverse Reaction (Mild, Verified 11/18/15 11:03) Nausea Hospital Summary - Hospital Course Hospital Course: Natacha suffers from many co morbidities refer to Dr. Bean's H and P as she sees her in her home as she is homebound and has severe copd and her ffamily was more worried about her and brought her to the ED. She currently is a very good historian and states she felt she does well at home in her current situation with her oxygen as long as her family is there to help. She was found to have leukocytosis that improved. She was treated for mild copd exacerbation with her breathing she notes at baseline today and her pain is at her baseline today. She has chronic tremors that she states are unchanged and she is tolerating her current home meds. - Vitals & Intake/Output Vital Signs: Vital Signs Temperature 98.4 F 07/28/16 10:37 Pulse Rate 105 H 07/28/16 10:37 Respiratory Rate 20 07/28/16 10:37 Blood Pressure 117/59 07/28/16 10:37 O2 Sat by Pulse Oximetry 95 07/28/16 10:37 Oxygen-Last Documented O2 Percentage 2 Liters = 28% Intake & Output: Intake & Output 07/26/16 07/27/16 07/28/16 07/29/16 11:59 11:59 11:59 11:59 Intake Total 120 2805 Output Total 2300 Balance 120 505 Weight 81.737 kg - Lab Result Diagrams: 07/27/16 15:45 07/27/16 01:40 Micro Results-Entire Visit: Microbiology 07/27/16 12:35 Urine Culture - Preliminary Catherized GRAM POSITIVE ID AND SENSITIVITY PENDING - Procedures and Test Procedures and Tests throughout Hospitalization: Therapy Orders & Screens 07/27/16 06:20 RT Screen per Nursing Assess ONCE Comment: Protocol Order Physician Instructions: Greater than 3 points order RT Admission Screen Reason For Exam: Triggered on Admission Diagnosis: Headache and COPD exacerbation Diagnosis: Headache and COPD exacerbation Pneumonia: No Home O2: Yes Asthma: Yes CHF: No Home CPAP/BIPAP: No Home Nebs/MDI: Yes Total Points: 14 Smoking Cessation Education ONCE Comment: Diagnosis: Headache and COPD exacerbation Smoking Status: Current every day smoker How long have you smoked: 40 Have you smoked in the past 12 months: Yes Approximately how many cigarettes per day: 1.5 packs Do you dip or chew tobacco: No If,Former Smoker,when did you quit: 2 weeks ago 07/27/16 11:00 Respiratory Nebulizer Q4H Comment: DUONEB Q4 Diagnosis: Headache and COPD exacerbation 07/27/16 19:00 Respiratory MDI BID Comment: ADVAIR 230/21 BID Diagnosis: Headache and COPD exacerbation Discharge Exam General Appearance: no apparent distress, alert, anxiety Neurologic Exam: alert, oriented x 3, cooperative, normal mood/affect, other ( severe bilateral essential tremors) Skin Exam: normal color, warm, dry Eye Exam: PERRL, EOMI, eyes nml inspection Ears, Nose, Throat Exam: normal ENT inspection, pharynx normal, moist mucous membranes Neck Exam: normal inspection, non-tender, supple, full range of motion Respiratory Exam: normal breath sounds, lungs clear, No respiratory distress Cardiovascular Exam: regular rate/rhythm, murmur Gastrointestinal/Abdomen Exam: soft, No tenderness, No mass Extremity Exam: normal inspection, normal range of motion Back Exam: normal inspection, normal range of motion, No CVA tenderness, No vertebral tenderness Pelvic Exam: deferred Rectal Exam: deferred Final Diagnosis/Problem List - Final Discharge Diagnosis/Problem (1) Acute exacerbation of chronic obstructive airways disease Status: Acute (2) Depression Status: Acute (3) Lewy body dementia Status: Chronic (4) Osteonecrosis Status: Chronic (5) Poor social situation Status: Chronic (6) Tobacco abuse Status: Chronic (7) Tremor Status: Chronic - Discharge Disposition: Home, Self-Care Condition: Fair Prescriptions: Continue Hydrocodone Bit/Acetaminophen [[place] 10-325 Tablet] 1 each PO QID PRN PRN PRN Reason: Pain Potassium Chloride 10 Meq Tab* [Klor Con 10 MEQ] 10 meq PO BID Ipratropium [place] Hfa [Atrovent HFA MDI] 2 puff IH BID Fluticasone/Salmeterol 230/21 [Advair Hfa 230/21 Mcg COMMON CANISTER*] 2 puff IH BIDRT Albuterol Sulfate [Ventolin Hfa] 18 gm IH QID Prednisone 10 mg [Deltasone 10 mg] 10 mg PO DAILY Loratadine 10 mg [Claritin 10 mg] 10 mg PO DAILY Famotidine 20 mg [Pepcid 20 MG] 20 mg PO HS Cefdinir [Omnicef] 300 mg PO BID Roflumilast [Daliresp] 500 mcg PO HS Pramipexole Di-HCl [Mirapex] 0.125 mg PO HS Primidone 50 MG [Mysoline 50Mg] 50 mg PO DAILY Escitalopram Oxalate [Lexapro] 20 mg PO DAILY Bisacodyl 5 mg [Dulcolax 5 mg] 5 mg PO DAILY PRN PRN Reason: bowel care Trazodone HCl 50 mg [Desyrel 50 mg] 50 mg PO HS Pregabalin [Lyrica 100Mg] 200 mg PO BID Lorazepam 1 mg [Ativan 1 MG] 1 mg PO BID Promethazine HCl 12.5 mg PO QID PRN PRN Reason: Nausea PANTOPRAZOLE 40 mg Tablet [Protonix 40MG Tablet] 40 mg PO DAILY Tizanidine HCl 2 mg PO HS Amitriptyline HCl 100 mg PO HS Fentanyl [Duragesic 12MCG Patch] 12 mcg TOP Q3D Fentanyl 100 Mcg Patch [Duragesic 100 MCG Patch] 100 mcg TOP Q3D Olanzapine [Zyprexa] 5 mg PO BID Primidone 50 MG [Mysoline 50Mg] 100 mg PO HS Albuterol/Ipratropium 3ml Neb* [DUONEB 0.5-3 MG/3 ml Neb] 3 ml IH QID Instructions: Chronic Obstructive Pulmonary Disease, Acute Pain -- Adult Additional Instructions: does home visits on this patient. Follow up with: JETT BEAN [Primary Care Provider] - Forms: Discharge Instructions, Patient Portal Information
== END 2016-07-28 10:52 | disposition home or self-care (01) ==
LOC: ED 01:20 → MED SURG 05:35
PROVIDERS: ADMIT Family Medicine; ATTEND Family Medicine
DX: J44.1 Chronic obstructive pulmonary disease with (acute) exacerbation (principal); F33.1 Major depressive disorder, recurrent, moderate; G31.83 Neurocognitive disorder with Lewy bodies; F02.80 Dementia in other diseases classified elsewhere, unspecified severity, without behavioral disturbance, psychotic disturbance, mood disturbance, and anxiety; M87.9 Osteonecrosis, unspecified; F43.29 Adjustment disorder with other symptoms; R51 Headache; E03.9 Hypothyroidism, unspecified; Z79.899 Other long term (current) drug therapy; M79.7 Fibromyalgia; M19.90 Unspecified osteoarthritis, unspecified site; M81.0 Age-related osteoporosis without current pathological fracture; F41.9 Anxiety disorder, unspecified; Z72.0 Tobacco use; Z65.9 Problem related to unspecified psychosocial circumstances
CPT/HCPCS: 36000; 36415; 70450; 71010; 80053; 81002; 82805; 83605; 83735; 84484; 85025; 85610; 85730; 87040; 87086; 93005; 93041; 94640; 94760; 94770; 96360; 96361; 96365; 96366; 96374; 96375; 99285; G0378; J0696; J3010; J3475; A9270-GY; J7506

== ENCOUNTER 2016-09-05 16:32 | Emergency (ER) | payer OTHER ==
[2016-09-05] MEDS ORDERED: DUONEB 0.5-3 MG/3 ml Neb IH ONE ×2 (17:12→17:13)
[2016-09-05] MEDS ORDERED: Sodium Chloride 0.9% 1000 ML 1,000 ML ONE (17:19)
[2016-09-05 17:30] LABS: Mean Cell Volume 95.2 fl (78-100); Mean Platelet Volume 9.8 fl (6-9.5); Platelet Count 404 K/mm3 (150-450); Red Blood Count 3.76 M/mm3 (4.1-5.4); Red Cell Distribution Width 17.2 % (11.5-14.0); White Blood Count 14.5 K/mm3 (4.0-10.5)
[2016-09-05] MEDS ORDERED: Sodium Chloride 0.9% 1000 ML 1,000 ML IV SCH (17:30)
[2016-09-05 17:33] LABS: Mean Corpuscular Hemoglobin 29.2 pg (26-32)
[2016-09-05 17:38] LABS: ANION GAP 11.9 MEQ/L (5-15); BLOOD UREA NITROGEN 8 mg/dL (9-20); CHLORIDE 106 mEq/L (98-107); Carbon Dioxide 29.7 mEq/L (21-32); Glucose 106 MG/DL (70-110); SODIUM 144 mEq/L (136-145)
[2016-09-05 18:01] VITALS: BP 118/68
--- NOTE | 2016-09-05 18:21 | ERPHSYRPT ---
- History of Present Illness Time Seen by Provider: 09/05/16 16:35 Source: patient Exam Limitations: clinical condition Patient Subjective Stated Complaint: recent multiple falls at home. today having right ankle and foot pain. also having left knee pain. daughter states patient fell getting out of shower on saturday. has also fallen recently trying to get out of bed by self. Triage Nursing Assessment: to room per ems cot. skin w/d, color normal. resp labored, audible wheezes heard. rr is 26. numermous, multiple bruises to arms , knees, ankles and feet. right foot and ankle swollen and warm to touch. Physician History: PATIENT WITH HISTORY OF COPD, BIPOLAR DISORDER, AND FIBROMYALGIA HAS FELL OUT OF BED TWICE 3 DAYS AGO SUSTAINED INJURY TO LEFT KNEE, RIGHT FOOT. DENIES HEAD, NECK OR BACK INJURY. Timing/Duration: today Severity: mild Modifying Factors: Improves With: movement Associated Symptoms: denies symptoms Allergies/Adverse Reactions: aspirin [From Aspirin Regimen Cheri/Calcium] Adverse Reaction (Mild, Verified 16:54) Nausea calcium carbonate [From Aspirin Regimen Cheri/Calcium] Adverse Reaction (Mild, Verified 09/05/16 16:54) Nausea Home Medications: Albuterol Sulfate [Ventolin Hfa] 18 gm IH QID 07/27/16 [History] Albuterol/Ipratropium 3ml Neb* [DUONEB 0.5-3 MG/3 ml Neb] 3 ml IH QID [History] Amitriptyline HCl 100 mg PO HS 07/27/16 [History] Bisacodyl 5 mg [Dulcolax 5 mg] 5 mg PO DAILY PRN 07/27/16 [History] Escitalopram Oxalate [Lexapro] 20 mg PO DAILY 07/27/16 [History] Famotidine 20 mg [Pepcid 20 MG] 20 mg PO HS 07/27/16 [History] Fentanyl 100 Mcg Patch [Duragesic 100 MCG Patch] 100 mcg TOP Q3D 07/27/16 [History] Fentanyl [Duragesic 12MCG Patch] 12 mcg TOP Q3D 07/27/16 [History] Fluticasone/Salmeterol 230/21 [Advair Hfa 230/21 Mcg COMMON CANISTER*] 2 puff IH BIDRT 07/27/16 [History] Hydrocodone Bit/Acetaminophen [[place] 10-325 Tablet] 1 each PO QID PRN PRN [History] Ipratropium [place] Hfa [Atrovent HFA MDI] 2 puff IH BID 07/27/16 [History] Loratadine 10 mg [Claritin 10 mg] 10 mg PO DAILY 07/27/16 [History] Lorazepam 1 mg [Ativan 1 MG] 1 mg PO BID 07/27/16 [History] Olanzapine [Zyprexa] 5 mg PO BID 07/27/16 [History] PANTOPRAZOLE 40 mg Tablet [Protonix 40MG Tablet] 40 mg PO DAILY 07/27/16 [ History] Potassium Chloride 10 Meq Tab* [Klor Con 10 MEQ] 10 meq PO BID 07/27/16 [ History] Pramipexole Di-HCl [Mirapex] 0.35 mg PO HS 07/27/16 [History] Prednisone 10 mg [Deltasone 10 mg] 10 mg PO DAILY 07/27/16 [History] Pregabalin [Lyrica 100Mg] 200 mg PO BID 07/27/16 [History] Primidone 50 MG [Mysoline 50Mg] 50 mg PO DAILY 07/27/16 [History] Primidone 50 MG [Mysoline 50Mg] 100 mg PO HS 07/27/16 [History] Promethazine HCl 12.5 mg PO QID PRN 07/27/16 [History] Roflumilast [Daliresp] 500 mcg PO HS 07/27/16 [History] Tizanidine HCl 2 mg PO HS 07/27/16 [History] Trazodone HCl 50 mg [Desyrel 50 mg] 50 mg PO HS 07/27/16 [History] Clonazepam 1 mg PO BID 09/05/16 [History] Loperamide HCl 2 mg [Imodium 2 mg] 2 mg PO Q4HPRN PRN 09/05/16 [History] Naproxen [EC-Naprosyn] 500 mg PO BID 09/05/16 [History] Ondansetron [Zofran Odt] 4 mg PO UD 09/05/16 [History] Zonisamide [Zonegran] 100 mg PO BIDPRN PRN 09/05/16 [History] Hx Tetanus, Diphtheria Vaccination/Date Given: No Hx Influenza Vaccination/Date Given: No Hx Pneumococcal Vaccination/Date Given: No - Review of Systems Constitutional: No Fever, No Chills Eyes: No Symptoms Ears, Nose, & Throat: No Symptoms Respiratory: No Symptoms, No Cough, No Dyspnea Cardiac: No Chest Pain, No Edema, No Syncope Abdominal/Gastrointestinal: No Symptoms, No Abdominal Pain, No Nausea, No Vomiting, No Diarrhea Genitourinary Symptoms: No Symptoms, No Dysuria Musculoskeletal: No Symptoms, Injury, Joint Pain, Joint Swelling, No Back Pain, No Neck Pain Skin: No Rash Neurological: Parasthesia, No Dizziness, No Focal Weakness, No Sensory Changes Psychological: No Symptoms Endocrine: No Symptoms All Other Systems: Reviewed and Negative - Past Medical History Pertinent Past Medical History: Yes Neurological History: Dementia, Migraines ENT History: No Pertinent History Cardiac History: No Pertinent History Respiratory History: COPD Endocrine Medical History: Hypothyroidism Musculoskeletal History: Fibromyalgia, Osteoarthritis, Osteoporosis GI Medical History: GERD, Hernia History: No Pertinent History Psycho-Social History: Anxiety, Bipolar, Depression, Eating Disorders, Panic Disorder Female Reproductive Disorders: Abnormal Uterine Bleeding Other Medical History: NEURO CHANGES TO LEGS AND ARMS - Past Surgical History Past Surgical History: Yes Neuro Surgical History: No Pertinent History Cardiac: No Pertinent History Respiratory: No Pertinent History Gastrointestinal: No Pertinent History Genitourinary: No Pertinent History Musculoskeletal: No Pertinent History Female Surgical History: Hysterectomy, Tubal Ligation Other Surgical History: scope on lungs,bx done"cleaned my lungs",childbirth natural x three,jaw screws place -had rib bone placed to jaw,fatty tumors removed from back and right hand,right hand nodule removed in september 2011 - Social History Smoking Status: Current every day smoker How long have you smoked: 50 Exposure to second hand smoke: No Alcohol Use: None Drug Use: marijuana Patient Lives Alone: No Significant Family History: no pertinent family hx - Female History Hx Now: No - Nursing Vital Signs Nursing Vital Signs: Initial Vital Signs Temperature 97.7 F Temperature Source Oral Pulse Rate 79 Respiratory Rate 20 Blood Pressure [Right Arm] 118/68 Pain Intensity 10 - Physical Exam General Appearance: no apparent distress, alert Eye Exam: PERRL/EOMI, eyes nml inspection Ears, Nose, Throat Exam: normal ENT inspection, TMs normal, pharynx normal, moist mucous membranes Neck Exam: normal inspection, non-tender, supple, full range of motion Respiratory Exam: wheezing (GOOD AIR EXCHANGE WITH TERMINAL EXPIRATORY WHEEZES.) , No respiratory distress Cardiovascular Exam: regular rate/rhythm, normal heart sounds, normal peripheral pulses Gastrointestinal/Abdomen Exam: soft, normal bowel sounds, No tenderness, No mass Back Exam: normal inspection, normal range of motion, No CVA tenderness, No vertebral tenderness Extremity Exam: normal inspection, normal range of motion, pelvis stable Neurologic Exam: alert, oriented x 3, cooperative, normal mood/affect, nml cerebellar function, nml station & gait, sensation nml, No motor deficits Skin Exam: normal color, warm, dry, No rash Lymphatic Exam: No adenopathy SpO2 Interpretation: normal SpO2: 97 Oxygen Delivery: Room Air - Radiology Exams Right Foot X-ray Interpretation: Interpreted by me (OSTEOPOROSIS, NO FRACTURE) Right Ankle X-ray Interpretation: Interpreted by me (MINIMAL DISPLACED RIGHT SPIRAL FRACTUE LATERAL MALLEOLUS OF ANKLE) Pelvis X-ray Interpretation: Interpreted by me, Negative Ordered Tests: Active Orders 24 hr Category Date Time Status ANKLE (3 VIEWS) Stat Exams 09/05/16 17:15 Taken FOOT (MINIMUM 3 VIEWS) Stat Exams 09/05/16 18:10 Taken KNEE (3 VIEWS) Stat Exams 09/05/16 17:13 Taken PELVIS (1 OR 2 VIEWS) Stat Exams 09/05/16 17:16 Taken BMP Stat Lab 09/05/16 17:00 Completed CBC W DIFF Stat Lab 09/05/16 17:00 Completed Manual Differential NC Stat Lab 09/05/16 17:00 Completed Respiratory Nebulizer STAT RT 09/05/16 17:13 Completed Medication Summary Generic Name Dose Route Start Last Admin Trade Name Freq PRN Reason Stop Dose Admin Sodium Chloride 1,000 mls @ 50 mls/hr 09/05/16 17:30 09/05/16 17:21 Sodium Chloride 0.9% 1000 Ml IV 10/05/16 17:29 50 mls/hr .Q20H ALFIE Administration Discontinued Medications Generic Name Dose Route Start Last Admin Trade Name Freq PRN Reason Stop Dose Admin Albuterol/Ipratropium 3 ml 09/05/16 17:12 09/05/16 17:19 Duoneb 0.5-3 Mg/3 Ml Neb IH 09/05/16 17:13 3 ml STAT ONE Administration Albuterol/Ipratropium Confirm 09/05/16 17:13 Duoneb 0.5-3 Mg/3 Ml Neb Administered 09/05/16 17:14 Dose 3 ml IH .STK-MED ONE Lab/Rad Data: Laboratory Result Diagrams 09/05/16 17:00 09/05/16 17:00 Laboratory Results 09/05/16 09/05/16 Range/Units 17:00 17:00 WBC 14.5 H (4.0-10.5) K/mm3 RBC 3.76 L (4.1-5.4) M/mm3 Hgb 11.0 L (12.0-16.0) gm/dl Hct 35.8 (35-47) % MCV 95.2 (78-100) fl MCH 29.2 (26-32) pg MCHC 30.7 L (32-36) g/dl RDW 17.2 H (11.5-14.0) % Plt Count 404 (150-450) K/mm3 MPV 9.8 H (6-9.5) fl Segmented Neutrophils 86 H (36.0-66.0) % Band Neutrophils 1 (0.0-2.0) % Lymphocytes (Manual) 10 L (24-44) % Monocytes (Manual) 2 (0.0-12.0) % Eosinophils (Manual) 1 (0.00-3.0) % Platelet Estimate NORMAL (NORMAL) Anisocytosis 1+ Sodium 144 (136-145) mEq/L Potassium 4.0 (3.5-5.1) mEq/L Chloride 106 (98-107) mEq/L Carbon Dioxide 29.7 (21-32) mEq/L Anion Gap 11.9 (5-15) MEQ/L BUN 8 L (9-20) mg/dL Creatinine 0.96 (0.55-1.30) mg/dl Estimated GFR > 60 ML/MIN Glucose 106 (70-110) MG/DL Calcium 8.5 (8.5-10.1) mg/dL - Progress Progress: pain not gone completely Progress Note: 09/05/16 19:13-PATIENT GIVEN DUONEB AEROSOL TREATMENT FOLLOWED BY AN ALBUTEROL AEROSOL TREATMENT SHORT LEG RIGHT ORTHOGLASS SPLINT APPLIED 09/05/16 19:20 Counseled pt/family regarding: lab results, diagnosis, need for follow-up - Departure Time of Disposition: 19:17 Departure Disposition: Home Clinical Impression: SPIRAL FRACTURE RIGHT LATERAL MALLEOLUS, EXACERBATION COPD Condition: Stable Critical Care Time: No Additional Instructions: CALL ORTHOPEDIC DR CLEMENTS TOMORROW TO SCHEDULE APPOINTMENT FOR RIGHT ANKLE LATERAL MALLEOLUS FRACTURE. REMAIN NONWEIGHT BEARNG RIGHT LEG AT ALL TIMES. CONTINUE ALL CURRENT PAIN MEDICATIONS. CONTINUE AEROSOL TREATMENT PRESCRIBED.
[2016-09-05 18:26] LABS: BAND 1 % (0.0-2.0); Eosinophil 1 % (0.00-3.0); Platelet Estimate NORMAL (NORMAL); Total Cells Counted 100
[2016-09-05 18:27] LABS: ANISOCYTOSIS 1+
[2016-09-05] MEDS ORDERED: PROVENTIL 2.5 MG/3 ML NEB IH ONE ×2 (19:33→19:34)
[2016-09-05 19:44] VITALS: PULSE 85; O2SAT 98
--- NOTE | 2016-09-06 08:51 | XRAY ---
Indication: Pain following fall. Comparison: August 06, 2013. 3 views of the left knee again demonstrates tiny fabella. No new/acute bony, articular, or soft tissue abnormalities.
--- NOTE | 2016-09-06 08:53 | XRAY ---
Indication: Pain following fall. Comparison: October 31, 2015. AP pelvis again demonstrates mild osteopenia and moderate/advanced degenerative changes of the right hip. No acute fracture, dislocation, or soft tissue abnormalities.
--- NOTE | 2016-09-06 08:55 | XRAY ---
Indication: Pain following fall. Comparison: October 31, 2015. 3 views of the right ankle again demonstrates osteopenia with new nondisplaced lateral malleolar oblique fracture and soft tissue swelling. No other bony, articular, or soft tissue abnormalities.
--- NOTE | 2016-09-06 08:55 | XRAY ---
Indication: Pain following fall. Comparison: October 31, 2015. 3 nonweightbearing views of the right foot again demonstrates osteopenia and mild first MTP degenerative changes with new nondisplaced lateral malleolar oblique fracture and soft tissue swelling. No other bony, articular, or soft tissue abnormalities.
== END 2016-09-05 20:13 | disposition home or self-care (01) ==
LOC: ED 16:32
PROC: 2W3RX1Z Immobilization of Left Lower Leg using Splint (ICD-10-PCS; principal; 2016-09-05)
DX: S82.61XA Displaced fracture of lateral malleolus of right fibula, initial encounter for closed fracture (principal); J44.1 Chronic obstructive pulmonary disease with (acute) exacerbation; F31.9 Bipolar disorder, unspecified; M79.7 Fibromyalgia; Z79.899 Other long term (current) drug therapy; E03.9 Hypothyroidism, unspecified
CPT/HCPCS: 29515; 36000; 36415; 72170; 73562; 73610; 73630; 80048; 85025; 94640; 96360; 96361; 99284; A9270-GY

== ENCOUNTER 2016-10-07 15:49 | Observation (INO) | payer OTHER ==
[2016-10-07] MEDS ORDERED: PROVENTIL 2.5 MG/3 ML NEB IH ONE ×2 (15:58→16:20)
[2016-10-07] MEDS ORDERED: Sodium Chloride 0.9% 1000 ML 1,000 ML IV SCH (16:00)
[2016-10-07 16:09] LABS: A-aADO2 99; ALLEN TEST OK? YES; ARTERIAL BLD GAS O2 SATURATION 97.5 % (95-100); ARTERIAL BLOOD GAS BASE EXCESS 1.8 (-2.0-2.0); ARTERIAL BLOOD GAS FIO2 32 %; ARTERIAL BLOOD GAS PO2 73 mmHg (75-100); ARTERIAL BLOOD GAS pH 7.39 (7.35-7.45)
[2016-10-07] MEDS ORDERED: Zithromax 500 MG/ 250 ML NaCl Premix 500 MG/250 ML IVPB IV STA (16:23)
[2016-10-07] MEDS ORDERED: ROCEPHIN 1 Gm-D5w 50 ml Bag** 1 G/50 ML IVPB IV STA (16:23)
--- NOTE | 2016-10-07 16:23 | ERPHSYRPT ---
- History of Present Illness Time Seen by Provider: 10/07/16 15:53 Source: patient, EMS (gave oxygen, 1 NTG, duoneb, and solu modrol [employer]) Patient Subjective Stated Complaint: pt states she became feeling sob last pm and worse today. states she has had a nonproductive cough for 2 days. Triage Nursing Assessment: pt pink, warm, dry. pt alert and oriented x3. wheezes heard thruought lung valles. Physician History: CC: short of breath Hx: 61 y/o patient of Dr Bean with hx of COPD and dementia. She has shortness of breath today. No fever or chills. Denies cough. She is a smoker. Worse over a couple of days. Daughter out of town. Accompanied here by a friend. No chest pain. No abd pain. She is wearing a cast on her lower leg. No hx of venous thromboembolic disease. Severity of Dyspnea-Max: severe Severity of Dyspnea-Current: moderate Allergies/Adverse Reactions: aspirin [From Aspirin Regimen Cheri/Calcium] Adverse Reaction (Mild, Verified 15:57) Nausea calcium carbonate [From Aspirin Regimen Cheri/Calcium] Adverse Reaction (Mild, Verified 10/07/16 15:57) Nausea Home Medications: Albuterol Sulfate [Ventolin Hfa] 18 gm IH QID 07/27/16 [History] Albuterol/Ipratropium 3ml Neb* [DUONEB 0.5-3 MG/3 ml Neb] 3 ml IH QID [History] Amitriptyline HCl 100 mg PO HS 07/27/16 [History] Bisacodyl 5 mg [Dulcolax 5 mg] 5 mg PO DAILY PRN 07/27/16 [History] Escitalopram Oxalate [Lexapro] 20 mg PO DAILY 07/27/16 [History] Famotidine 20 mg [Pepcid 20 MG] 20 mg PO HS 07/27/16 [History] Fentanyl 100 Mcg Patch [Duragesic 100 MCG Patch] 100 mcg TOP Q3D 07/27/16 [History] Fentanyl [Duragesic 12MCG Patch] 12 mcg TOP Q3D 07/27/16 [History] Fluticasone/Salmeterol 230/21 [Advair Hfa 230/21 Mcg COMMON CANISTER*] 2 puff IH BIDRT 07/27/16 [History] Hydrocodone Bit/Acetaminophen [[place] 10-325 Tablet] 1 each PO QID PRN PRN [History] Ipratropium Gray Hfa [Atrovent HFA MDI] 2 puff IH BID 07/27/16 [History] Loratadine 10 mg [Claritin 10 mg] 10 mg PO DAILY 07/27/16 [History] Lorazepam 1 mg [Ativan 1 MG] 1 mg PO BID 07/27/16 [History] Olanzapine [Zyprexa] 5 mg PO BID 07/27/16 [History] PANTOPRAZOLE 40 mg Tablet [Protonix 40MG Tablet] 40 mg PO DAILY 07/27/16 [ History] Potassium Chloride 10 Meq Tab* [Klor Con 10 MEQ] 10 meq PO BID 07/27/16 [ History] Pramipexole Di-HCl [Mirapex] 0.35 mg PO HS 07/27/16 [History] Prednisone 10 mg [Deltasone 10 mg] 10 mg PO DAILY 07/27/16 [History] Pregabalin [Lyrica 100Mg] 200 mg PO BID 07/27/16 [History] Primidone 50 MG [Mysoline 50Mg] 50 mg PO DAILY 07/27/16 [History] Primidone 50 MG [Mysoline 50Mg] 100 mg PO HS 07/27/16 [History] Promethazine HCl 12.5 mg PO QID PRN 07/27/16 [History] Roflumilast [Daliresp] 500 mcg PO HS 07/27/16 [History] Tizanidine HCl 2 mg PO HS 07/27/16 [History] Trazodone HCl 50 mg [Desyrel 50 mg] 50 mg PO HS 07/27/16 [History] Clonazepam 1 mg PO BID 09/05/16 [History] Loperamide HCl 2 mg [Imodium 2 mg] 2 mg PO Q4HPRN PRN 09/05/16 [History] Naproxen [EC-Naprosyn] 500 mg PO BID 09/05/16 [History] Ondansetron [Zofran Odt] 4 mg PO UD 09/05/16 [History] Zonisamide [Zonegran] 100 mg PO BIDPRN PRN 09/05/16 [History] Hx Tetanus, Diphtheria Vaccination/Date Given: Yes (unknown) Hx Influenza Vaccination/Date Given: No Hx Pneumococcal Vaccination/Date Given: No - Review of Systems Constitutional: Fatigue, Malaise, No Fever, No Chills Eyes: No Symptoms Respiratory: Cough, Dyspnea Cardiac: No Chest Pain Abdominal/Gastrointestinal: No Abdominal Pain, No Nausea, No Vomiting Genitourinary Symptoms: No Dysuria Musculoskeletal: No Back Pain, No Neck Pain Skin: No Rash Neurological: No Headache All Other Systems: Reviewed and Negative - Past Medical History Pertinent Past Medical History: Yes Neurological History: Dementia (lewy body), Migraines ENT History: No Pertinent History Cardiac History: No Pertinent History Respiratory History: COPD Endocrine Medical History: Hypothyroidism Musculoskeletal History: Fibromyalgia, Osteoarthritis, Osteoporosis GI Medical History: GERD, Hernia History: No Pertinent History Psycho-Social History: Anxiety, Bipolar, Depression, Eating Disorders, Panic Disorder Female Reproductive Disorders: Abnormal Uterine Bleeding - Past Surgical History Past Surgical History: Yes Neuro Surgical History: No Pertinent History Cardiac: No Pertinent History Respiratory: No Pertinent History Gastrointestinal: No Pertinent History Genitourinary: No Pertinent History Musculoskeletal: No Pertinent History Female Surgical History: Hysterectomy, Tubal Ligation Other Surgical History: scope on lungs,bx done"cleaned my lungs",childbirth natural x three,jaw screws place -had rib bone placed to jaw,fatty tumors removed from back and right hand,right hand nodule removed in september 2011 - Social History Smoking Status: Current every day smoker How long have you smoked: 50 Exposure to second hand smoke: Yes Alcohol Use: None Drug Use: none Patient Lives Alone: No (lives at home with a boyfriend. Has HHC.) Significant Family History: no pertinent family hx - Female History Hx Now: No - Nursing Vital Signs Nursing Vital Signs: Initial Vital Signs Temperature 98.8 F 10/07/16 15:50 Pulse Rate 112 H 10/07/16 15:50 Respiratory Rate 26 H 10/07/16 15:50 Blood Pressure 118/81 10/07/16 15:50 O2 Sat by Pulse Oximetry 95 10/07/16 15:50 Pain Scale Pain Intensity 0 - Physical Exam General Appearance: alert, other (dry mucous membranes) Eye Exam: PERRL/EOMI Neck Exam: supple Respiratory Exam: diminished breath sounds, wheezing Cardiovascular/Chest Exam: regular rate/rhythm Abdominal/Gastrointestinal Exam: soft, No tenderness, No distention Extremity Exam: normal inspection (except cast on lower leg) Neurologic Exam: alert, cooperative, No motor deficits Skin Exam: warm, dry SpO2 Interpretation: normal SpO2: 95 Oxygen Delivery: Nasal Cannula - Course Nursing assessment & vital signs reviewed: Yes EKG Interpreted by Me: RATE (103), Sinus Tach, NORMAL AXIS, NORMAL INTERVALS ( QTc 432), NORMAL QRS, Non-specific ST Changes - Radiology Exams cxr X-ray Interpretation: Reviewed by me (copd, mild congestion) Ordered Tests: Active Orders 24 hr Category Date Time Status CO2 Monitoring STAT Care 10/07/16 15:56 Completed Power And Recovery Supervisor STAT Care 10/07/16 15:56 Active Cath for Specimen-Straight STAT Care 10/07/16 15:56 Active EKG-ER Only STAT Care 10/07/16 15:56 Active IV Insertion STAT Care 10/07/16 15:56 Active Oxygen-ED Only NASAL CANNULA 3 lpm Care 10/07/16 15:56 Active Pulse Oximetry (ED) STAT Care 10/07/16 15:56 Active Rectal Temperature STAT Care 10/07/16 15:56 Active CHEST 1 VIEW (PORTABLE) Stat Exams 10/07/16 15:57 Taken ARTERIAL BLOOD GASES Stat Lab 10/07/16 16:03 Completed BLOOD CULTURE Stat Lab 10/07/16 16:18 Received CBC W DIFF Stat Lab 10/07/16 16:25 Completed CMP Stat Lab 10/07/16 16:25 Completed CULTURE,URINE Stat Lab 10/07/16 15:57 Received D-DIMER QUANTITATION Stat Lab 10/07/16 16:25 Completed Lactic Acid Stat Lab 10/07/16 16:30 Results Manual Differential NC Stat Lab 10/07/16 16:25 Completed TROPONIN Q3H Lab 10/07/16 16:00 Completed TROPONIN Q3H Lab 10/07/16 16:25 Received TROPONIN Q3H Lab 10/07/16 19:00 Ordered TROPONIN Q3H Lab 10/08/16 01:00 Ordered TROPONIN Q3H Lab 10/08/16 04:00 Ordered UA W/ MICROSCOPIC Stat Lab 10/07/16 15:57 Completed Respiratory Nebulizer STAT RT 10/07/16 15:58 Completed Medication Summary Generic Name Dose Route Start Last Admin Trade Name Leticia PRN Reason Stop Dose Admin Sodium Chloride 1,000 mls @ 50 mls/hr 10/07/16 16:00 10/07/16 16:26 Sodium Chloride 0.9% 1000 Ml IV 11/06/16 15:59 50 mls/hr .Q20H ALFIE Administration Azithromycin 500 mg in 250 mls @ 250 mls/hr 10/07/16 16:23 Zithromax 500 Mg/ 250 Ml Nacl Premix IV 10/07/16 17:22 STAT STA Discontinued Medications Generic Name Dose Route Start Last Admin Trade Name Craigq PRN Reason Stop Dose Admin Albuterol Sulfate 2.5 mg 10/07/16 15:58 10/07/16 16:22 Proventil 2.5 Mg/3 Ml Neb IH 10/07/16 15:59 2.5 mg STAT ONE Administration Albuterol Sulfate Confirm 10/07/16 16:20 Proventil 2.5 Mg/3 Ml Neb Administered 10/07/16 16:21 Dose 2.5 mg IH .STK-MED ONE Ceftriaxone Sodium/Dextrose 1 g in 50 mls @ 100 mls/hr 10/07/16 16:23 16:27 Rocephin 1 Gm-D5w 50 Ml Bag IV 10/07/16 16:52 100 mls/hr STAT STA Administration Ceftriaxone Sodium/Dextrose Confirm 10/07/16 16:24 Rocephin 1 Gm-D5w 50 Ml Bag Administered 10/07/16 16:25 Dose 1 g in 50 mls @ ud IV .STK-MED ONE Ceftriaxone Sodium/Dextrose Confirm 10/07/16 16:26 Rocephin 1 Gm-D5w 50 Ml Bag Administered 10/07/16 16:27 Dose 1 g in 50 mls @ ud IV .STK-MED ONE Lab/Rad Data: Laboratory Result Diagrams 10/07/16 16:25 10/07/16 16:25 Laboratory Results 10/07/16 10/07/16 10/07/16 Range/Units 16:30 16:25 16:25 WBC (4.0-10.5) K/mm3 RBC (4.1-5.4) M/mm3 Hgb (12.0-16.0) gm/dl Hct (35-47) % MCV (78-100) fl MCH (26-32) pg MCHC (32-36) g/dl RDW (11.5-14.0) % Plt Count (150-450) K/mm3 MPV (6-9.5) fl Segmented Neutrophils (36.0-66.0) % Band Neutrophils (0.0-2.0) % Lymphocytes (Manual) (24-44) % Monocytes (Manual) (0.0-12.0) % Eosinophils (Manual) (0.00-3.0) % Differential Comment Platelet Estimate (NORMAL) Hypochromasia D-Dimer 1222 H* (0-500) ng/mL Puncture Site pCO2 (35-45) mmHg pO2 (75-100) mmHg Base Excess (-2.0-2.0) O2 Saturation (94-100) g/dF ABG pH (7.35-7.45) ABG HCO3 (22-28) ABG O2 Sat (Measured) (95-100) % Layton Test A-a Gradient a/A Ratio Hemoglobin Carboxyhemoglobin (0.0-6.9) % THgb Methemoglobin (1.4-1.5) % Potassium 3.0 L* (3.5-5.1) Temperature C POC O2 Flow Rate % Sodium 145 (136-145) mEq/L Chloride 104 (98-107) mEq/L Carbon Dioxide 28.2 (21-32) mEq/L Anion Gap 15.3 H (5-15) MEQ/L BUN 7 L (9-20) mg/dL Creatinine 1.20 (0.55-1.30) mg/dl Estimated GFR 49 ML/MIN Glucose 190 H (70-110) MG/DL Lactic Acid 3.8 H (0.4-2.0) Calcium 8.7 (8.5-10.1) mg/dL Total Bilirubin 0.20 (0.2-1.0) mg/dL AST 12 L (15-37) U/L ALT 13 (12-78) U/L Alkaline Phosphatase 105 (46-116) U/L Troponin I (0.000-0.056) ng/ml Serum Total Protein 7.0 (6.4-8.2) gm/dL Albumin 2.9 L (3.4-5.0) g/dL Ur Collection Type Urine Color (YELLOW) Urine Appearance (CLEAR) Urine pH (5-6) Ur Specific [place] (1.005-1.025) Urine Protein (Negative) Urine Ketones (NEGATIVE) Urine Blood (0-5) Gadiel/ul Urine Nitrite (NEGATIVE) Urine Bilirubin (NEGATIVE) Urine Urobilinogen (0-1) mg/dL Ur Leukocyte Esterase (NEGATIVE) Urine Microscopic RBC (0-2) /HPF Urine Microscopic WBC (0-5) /HPF Ur Epithelial Cells (FEW) /HPF Urine Bacteria (NEGATIVE) /HPF Urine Mucus (NEGATIVE) /HPF Urine Glucose (NEGATIVE) mg/dL Specimen Received 10/07/16 10/07/16 10/07/16 Range/Units 16:25 16:03 16:00 WBC 17.5 H (4.0-10.5) K/mm3 RBC 3.90 L (4.1-5.4) M/mm3 Hgb 11.2 L (12.0-16.0) gm/dl Hct 37.0 (35-47) % MCV 94.9 (78-100) fl MCH 28.7 (26-32) pg MCHC 30.3 L (32-36) g/dl RDW 16.8 H (11.5-14.0) % Plt Count 324 (150-450) K/mm3 MPV 9.5 (6-9.5) fl Segmented Neutrophils 88 H (36.0-66.0) % Band Neutrophils 2 (0.0-2.0) % Lymphocytes (Manual) 7 L (24-44) % Monocytes (Manual) 2 (0.0-12.0) % Eosinophils (Manual) 1 (0.00-3.0) % Differential Comment ABNORMAL Platelet Estimate NORMAL (NORMAL) Hypochromasia 1+ D-Dimer (0-500) ng/mL Puncture Site RIGHT RADIAL pCO2 45 (35-45) mmHg pO2 73 L (75-100) mmHg Base Excess 1.8 (-2.0-2.0) O2 Saturation 92.5 L (94-100) g/dF ABG pH 7.39 (7.35-7.45) ABG HCO3 27.2 (22-28) ABG O2 Sat (Measured) 97.5 (95-100) % Layton Test YES A-a Gradient 99 a/A Ratio 0.42 Hemoglobin 11.8 Carboxyhemoglobin 3.6 (0.0-6.9) % THgb Methemoglobin 1.5 (1.4-1.5) % Potassium 3.0 L (3.5-5.1) Temperature 37.0 C POC O2 Flow Rate 32 % Sodium (136-145) mEq/L Chloride (98-107) mEq/L Carbon Dioxide (21-32) mEq/L Anion Gap (5-15) MEQ/L BUN (9-20) mg/dL Creatinine (0.55-1.30) mg/dl Estimated GFR ML/MIN Glucose (70-110) MG/DL Lactic Acid (0.4-2.0) Calcium (8.5-10.1) mg/dL Total Bilirubin (0.2-1.0) mg/dL AST (15-37) U/L ALT (12-78) U/L Alkaline Phosphatase (46-116) U/L Troponin I < 0.017 (0.000-0.056) ng/ml Serum Total Protein (6.4-8.2) gm/dL Albumin (3.4-5.0) g/dL Ur Collection Type Urine Color (YELLOW) Urine Appearance (CLEAR) Urine pH (5-6) Ur Specific [place] (1.005-1.025) Urine Protein (Negative) Urine Ketones (NEGATIVE) Urine Blood (0-5) Gadiel/ul Urine Nitrite (NEGATIVE) Urine Bilirubin (NEGATIVE) Urine Urobilinogen (0-1) mg/dL Ur Leukocyte Esterase (NEGATIVE) Urine Microscopic RBC (0-2) /HPF Urine Microscopic WBC (0-5) /HPF Ur Epithelial Cells (FEW) /HPF Urine Bacteria (NEGATIVE) /HPF Urine Mucus (NEGATIVE) /HPF Urine Glucose (NEGATIVE) mg/dL Specimen Received 10/07/16 Range/Units 15:57 WBC (4.0-10.5) K/mm3 RBC (4.1-5.4) M/mm3 Hgb (12.0-16.0) gm/dl Hct (35-47) % MCV (78-100) fl MCH (26-32) pg MCHC (32-36) g/dl RDW (11.5-14.0) % Plt Count (150-450) K/mm3 MPV (6-9.5) fl Segmented Neutrophils (36.0-66.0) % Band Neutrophils (0.0-2.0) % Lymphocytes (Manual) (24-44) % Monocytes (Manual) (0.0-12.0) % Eosinophils (Manual) (0.00-3.0) % Differential Comment Platelet Estimate (NORMAL) Hypochromasia D-Dimer (0-500) ng/mL Puncture Site pCO2 (35-45) mmHg pO2 (75-100) mmHg Base Excess (-2.0-2.0) O2 Saturation (94-100) g/dF ABG pH (7.35-7.45) ABG HCO3 (22-28) ABG O2 Sat (Measured) (95-100) % [place]ton Test A-a Gradient a/A Ratio Hemoglobin Carboxyhemoglobin (0.0-6.9) % THgb Methemoglobin (1.4-1.5) % Potassium (3.5-5.1) Temperature C POC O2 Flow Rate % Sodium (136-145) mEq/L Chloride (98-107) mEq/L Carbon Dioxide (21-32) mEq/L Anion Gap (5-15) MEQ/L BUN (9-20) mg/dL Creatinine (0.55-1.30) mg/dl Estimated GFR ML/MIN Glucose (70-110) MG/DL Lactic Acid (0.4-2.0) Calcium (8.5-10.1) mg/dL Total Bilirubin (0.2-1.0) mg/dL AST (15-37) U/L ALT (12-78) U/L Alkaline Phosphatase (46-116) U/L Troponin I (0.000-0.056) ng/ml Serum Total Protein (6.4-8.2) gm/dL Albumin (3.4-5.0) g/dL Ur Collection Type CATH Urine Color YELLOW (YELLOW) Urine Appearance CLEAR (CLEAR) Urine pH 6.0 (5-6) Ur Specific [place] 1.020 (1.005-1.025) Urine Protein TRACE (Negative) Urine Ketones NEGATIVE (NEGATIVE) Urine Blood 250 (0-5) Gadiel/ul Urine Nitrite NEGATIVE (NEGATIVE) Urine Bilirubin NEGATIVE (NEGATIVE) Urine Urobilinogen NORMAL (0-1) mg/dL Ur Leukocyte Esterase TRACE (NEGATIVE) Urine Microscopic RBC 15-25 (0-2) /HPF Urine Microscopic WBC 5-10 (0-5) /HPF Ur Epithelial Cells FEW (FEW) /HPF Urine Bacteria MODERATE (NEGATIVE) /HPF Urine Mucus MODERATE (NEGATIVE) /HPF Urine Glucose NEGATIVE (NEGATIVE) mg/dL Specimen Received 10/07/16 1630 - Progress Progress Note: 10/07/16 17:05 Cultures sent. Steroids given prehospital. Rocephin/zithromax given. Called Dr Bean. Will admit to IP Tele, one dose lovenox as unable to get CTA tonite due to low GFR. Discussed with .: Vikas Will see patient in: hospital (full admit) Counseled pt/family regarding: lab results, diagnosis, need for follow-up, rad results, smoking cessation - Departure Time of Disposition: 17:06 Departure Disposition: In-patient Admission Clinical Impression: Tobacco abuse, Acute exacerbation of chronic obstructive airways disease, Lewy body dementia, Sepsis Condition: Fair Critical Care Time: No Referrals: JETT BEAN [Primary Care Provider] -
[2016-10-07] MEDS ORDERED: Sodium Chloride 0.9% 1000 ML 1,000 ML ONE (16:24)
[2016-10-07] MEDS ORDERED: ROCEPHIN 1 Gm-D5w 50 ml Bag** 1 G/50 ML IVPB IV ONE (16:24)
[2016-10-07] MEDS ORDERED: ROCEPHIN 1 Gm-D5w 50 ml Bag** 0 G/0 ML IVPB IV ONE (16:26)
[2016-10-07 16:29] LABS: Mean Cell Volume 94.9 fl (78-100); Mean Corpuscular Hemoglobin 28.7 pg (26-32); Mean Platelet Volume 9.5 fl (6-9.5); Platelet Count 324 K/mm3 (150-450); Red Cell Distribution Width 16.8 % (11.5-14.0); White Blood Count 17.5 K/mm3 (4.0-10.5)
[2016-10-07 16:35] LABS: Lactic Acid 3.8 (0.4-2.0)
[2016-10-07 16:46] LABS: ALBUMIN 2.9 g/dL (3.4-5.0); ANION GAP 15.3 MEQ/L (5-15); BILIRUBIN,TOTAL 0.2 mg/dL (0.2-1.0); Carbon Dioxide 28.2 mEq/L (21-32)
[2016-10-07 16:48] LABS: ADD URINE CULTURE? YES (NO); Bacteria MODERATE /HPF (NEGATIVE); Bilirubin NEGATIVE (NEGATIVE); Blood 250 Ery/ul (0-5); COMPLETE URINE MICROSCOPIC? YES; Collection Type CATH; Epithelial Cells FEW /HPF (FEW); Glucose NEGATIVE (NEGATIVE); Leukocyte Esterase TRACE (NEGATIVE); Mucus MODERATE /HPF (NEGATIVE)
[2016-10-07 16:52] LABS: BAND 2 % (0.0-2.0); Eosinophil 1 % (0.00-3.0); Total Cells Counted 100
[2016-10-07 16:53] LABS: Hypochromia 1+; Platelet Estimate NORMAL (NORMAL)
[2016-10-07] MEDS ORDERED: ENOXAPARIN SODIUM SQ ONE ×2 (17:04→17:09)
[2016-10-07] MEDS ORDERED: Zithromax 500 MG/ 250 ML NaCl Premix 500 MG/250 ML IVPB IV ONE (17:09)
[2016-10-07] MEDS ORDERED: TYLENOL 325 MG PO PRN (17:39)
[2016-10-07] MEDS ORDERED: D5w/0.45NS W/ 40MEQ KCl 1000 Ml 1,000 ML IV SCH (17:39)
[2016-10-07] MEDS ORDERED: D5w/0.45NS W/ 40MEQ KCl 1000 Ml 1,000 ML IV ONE (18:29)
[2016-10-07] MEDS: solu-MEDROL 125 MG IV SCH (18:34)
[2016-10-07] MEDS: DUONEB 0.5-3 MG/3 ml Neb IH SCH ×2 (19:02→22:17)
[2016-10-07] MEDS: Advair Hfa 230/21 Mcg COMMON CANISTER IH SCH (19:02)
[2016-10-07 19:24] LABS: Lactic Acid 4.6 (0.4-2.0)
[2016-10-07] MEDS ORDERED: Sodium Chloride 0.9% 500 ML 500 ML IV ONE (20:30)
[2016-10-07] MEDS: Klor Con 10 MEQ PO SCH (20:43)
[2016-10-07] MEDS: Pepcid 20 MG VIAL IV SCH (20:43)
--- NOTE | 2016-10-07 21:58 | XRAY ---
Indication: COPD. Possible sepsis. Comparison: July 27, 2016. Portable apical lordotic chest again hyperinflated without focal infiltrate, consolidation, or large effusion. Heart is not enlarged for AP portable technique. There remains a few hilar calcified nodes. Bony thorax intact again with mild osteopenia and degenerative changes. Impression: Stable nonacute hyperinflated chest with chronic features.
[2016-10-07 22:36] LABS: Lactic Acid 2.8 (0.4-2.0)
[2016-10-08] MEDS: solu-MEDROL 125 MG IV SCH ×5 (00:33→23:37)
[2016-10-08 01:17] LABS: Lactic Acid 4.3 (0.4-2.0)
[2016-10-08] MEDS ORDERED: Sodium Chloride 0.9% 1000 ML 1,000 ML IV STA (02:03)
[2016-10-08] MEDS: DUONEB 0.5-3 MG/3 ml Neb IH SCH ×7 (02:58→23:11)
[2016-10-08 04:13] LABS: Mean Cell Volume 94.9 fl (78-100); Mean Corpuscular Hemoglobin 28.3 pg (26-32); Mean Platelet Volume 9.4 fl (6-9.5); Platelet Count 302 K/mm3 (150-450); Red Blood Count 3.53 M/mm3 (4.1-5.4); Red Cell Distribution Width 16.6 % (11.5-14.0); White Blood Count 14.4 K/mm3 (4.0-10.5)
[2016-10-08 04:19] LABS: Lactic Acid 3.5 (0.4-2.0)
[2016-10-08] MEDS: Sodium Chloride 0.9% 1000 ML 1,000 ML IV SCH ×3 (04:27→21:40)
[2016-10-08 04:55] LABS: ANION GAP 15.4 MEQ/L (5-15); BLOOD UREA NITROGEN 7 mg/dL (9-20); CHLORIDE 109 mEq/L (98-107); Carbon Dioxide 23.6 mEq/L (21-32); Glucose 152 MG/DL (70-110); Potassium 3.8 mEq/L (3.5-5.1); SODIUM 144 mEq/L (136-145)
[2016-10-08 06:37] LABS: Total Cells Counted 100
[2016-10-08 06:38] LABS: Platelet Estimate NORMAL (NORMAL)
[2016-10-08] MEDS: Advair Hfa 230/21 Mcg COMMON CANISTER IH SCH ×2 (07:25→19:01)
[2016-10-08] MEDS ORDERED: NON-FORMULARY ITEM (Promethazine Hcl [Promethazine Hcl] 12.5 MG) PO PRN (07:43)
[2016-10-08] MEDS ORDERED: IMODIUM 2 MG PO PRN (07:43)
[2016-10-08] MEDS ORDERED: DULCOLAX 5 MG PO PRN (07:43)
[2016-10-08] MEDS ORDERED: PRAMIPEXOLE DI HCL PO PRN (07:43)
[2016-10-08] MEDS ORDERED: Voltaren GEL TP PRN (07:45)
[2016-10-08] MEDS ORDERED: Mirapex 0.5 MG Tablet PO PRN (08:10)
[2016-10-08] MEDS ORDERED: PHENERGAN 25 MG PO PRN (08:11)
[2016-10-08] MEDS ORDERED: MEDICATION INTERVENTION MC PRN (08:14)
[2016-10-08] MEDS: Norco 10/325 MG Tablet PO PRN (08:26)
--- NOTE | 2016-10-08 08:31 | PCM.HP ---
History of Present Illness - Chief Complaint Chief Complaint: COPD. elevated D-Dimer. Dementia History of Present Illness: is a 61 year old female pt with COPD and Lewy Body Dementia who started feeling ill 2-3 days ago with increased cough. No fever. Shortness of breath. New back pain approx T8 all across the back, worse with coughing. She had just been on a car ride up to [facility]. Also has a cast on R foot. - Review of Systems Respiratory: Cough, Short Of Breath, Wheezing Musculoskeletal: Back Pain, Joint Pain (chronic, has osteonecrosis of the R hip and knee) Neurological: Other (intermittent memory issues) Psychological: Anxiety, Depression (chronic) All Other Systems: Reviewed and Negative Medications & Allergies Home Medications: Home Medication List Albuterol/Ipratropium 3ml Neb* [DUONEB 0.5-3 MG/3 ml Neb] 3 ml IH QID [History Confirmed 10/07/16] Amitriptyline HCl 150 mg PO HS 07/27/16 [History Confirmed 10/07/16] Bisacodyl 5 mg [Dulcolax 5 mg] 5 mg PO DAILY PRN PRN 07/27/16 [History Confirmed 10/07/16] Escitalopram Oxalate [Lexapro] 20 mg PO DAILY 07/27/16 [History Confirmed ] Famotidine 20 mg [Pepcid 20 MG] 20 mg PO HS 07/27/16 [History Confirmed ] Fentanyl 100 Mcg Patch [Duragesic 100 MCG Patch] 100 mcg TOP Q3D 07/27/16 [History Confirmed 10/07/16] Fentanyl [Duragesic 12MCG Patch] 12 mcg TOP Q3D 07/27/16 [History Confirmed ] Fluticasone/Salmeterol 230/21 [Advair Hfa 230/21 Mcg COMMON CANISTER*] 2 puff IH BIDRT 07/27/16 [History Confirmed 10/07/16] Hydrocodone Bit/Acetaminophen [[place] 10-325 Tablet] 1 each PO QID PRN PRN [History Confirmed 10/07/16] Loratadine 10 mg [Claritin 10 mg] 10 mg PO DAILY 07/27/16 [History Confirmed 10/07/16] Olanzapine [Zyprexa] 5 mg PO DAILY 07/27/16 [History Confirmed 10/07/16] PANTOPRAZOLE 40 mg Tablet [Protonix 40MG Tablet] 40 mg PO DAILY 07/27/16 [ History Confirmed 10/07/16] Potassium Chloride 10 Meq Tab* [Klor Con 10 MEQ] 10 meq PO BID 07/27/16 [ History Confirmed 10/07/16] Pramipexole Di-HCl [Mirapex] 1 - 2 tablet PO HS PRN PRN 07/27/16 [History Confirmed 10/07/16] Prednisone 10 mg [Deltasone 10 mg] 10 mg PO DAILY 07/27/16 [History Confirmed 10/07/16] Pregabalin [Lyrica 100Mg] 200 mg PO BID 07/27/16 [History Confirmed 10/07/16] Primidone 50 MG [Mysoline 50Mg] 50 mg PO DAILY 07/27/16 [History Confirmed 10/07/16] Primidone 50 MG [Mysoline 50Mg] 100 mg PO HS 07/27/16 [History Confirmed ] Promethazine HCl 12.5 mg PO QID PRN 07/27/16 [History Confirmed 10/07/16] Roflumilast [Daliresp] 500 mcg PO HS 07/27/16 [History Confirmed 10/07/16] Tizanidine HCl 2 mg PO DAILY 07/27/16 [History Confirmed 10/07/16] Trazodone HCl 50 mg [Desyrel 50 mg] 50 mg PO HS 07/27/16 [History Confirmed 10/07/16] Clonazepam 1 mg PO BID 09/05/16 [History Confirmed 10/07/16] Loperamide HCl 2 mg [Imodium 2 mg] 2 mg PO Q4HPRN PRN 09/05/16 [History Confirmed 10/07/16] Naproxen [EC-Naprosyn] 500 mg PO BID 09/05/16 [History Confirmed 10/07/16] Ondansetron [Zofran Odt] 4 mg PO Q6HPRN PRN 09/05/16 [History Confirmed 10/07/16 ] Zonisamide [Zonegran] 100 mg PO BID 09/05/16 [History Confirmed 10/07/16] Diclofenac Sodium Gel [Voltaren GEL] 1 applic TP QID PRN 10/07/16 [ History Confirmed 10/07/16] Ipratropium [place] Hfa [Atrovent HFA MDI] 17 gm IH QID 10/07/16 [History Confirmed 10/07/16] Allergies/Adverse Reactions: Allergies Allergy/AdvReac Type Severity Reaction Status Date / Time aspirin AdvReac Mild Nausea Verified 10/07/16 15:57 [From Aspirin Regimen Cheri/Calcium] calcium carbonate AdvReac Mild Nausea Verified 10/07/16 15:57 [From Aspirin Regimen Cheri/Calcium] - Past Medical History Past Medical History: Yes Neurological History: Dementia, Migraines ENT History: No Pertinent History Cardiac History: No Pertinent History Respiratory History: COPD Endocrine Medical History: Hypothyroidism Musculoskelatal History: Fibromyalgia, Osteoarthritis, Osteoporosis GI Medical History: GERD, Hernia History: No Pertinent History Pyscho-Social History: Anxiety, Bipolar, Depression, Eating Disorders, Panic Disorder Reproductive Disorders: Abnormal Uterine Bleeding Comment: NEURO CHANGES TO LEGS AND ARMS - Female History Are you now?: No - Past Surgical History Past Surgical History: Yes Neuro Surgical History: No Pertinent History Cardiac History: No Pertinent History Respiratory Surgery: No Pertinent History GI Surgical History: No Pertinent History Genitourinary Surgical Hx: No Pertinent History Musculskeletal Surgical Hx: No Pertinent History Female Surgical History: Hysterectomy, Tubal Ligation Other Surgical History: scope on lungs,bx done"cleaned my lungs",childbirth natural x three,jaw screws place -had rib bone placed to jaw,fatty tumors removed from back and right hand,right hand nodule removed in september 2011 - Social History Smoking Status: Current every day smoker How long have you smoked: 50 Exposure to second hand smoke: Yes Alcohol: None Drug Use: none Significant Family History: no pertinent family hx - Physical Exam Vital Signs: Vital Signs - 24 hr Temp Pulse Resp BP Pulse Ox 10/08/16 07:34 98.4 F 84 18 111/66 95 10/08/16 07:32 86 20 98 10/08/16 04:00 97.8 F 76 22 108/56 99 10/08/16 02:58 91 H 22 94 L 10/08/16 00:00 98.0 F 84 20 108/59 96 10/07/16 22:18 78 24 96 10/07/16 20:34 98.0 F 96 H 20 113/53 92 L 10/07/16 19:02 89 22 97 10/07/16 18:06 98.0 F 89 22 113/53 98 10/07/16 17:43 89 22 98 10/07/16 17:39 98.0 F 96 H 20 113/53 92 L 10/07/16 17:06 95 10/07/16 16:50 98 H 24 109/52 96 10/07/16 16:28 107 H 22 100 10/07/16 16:23 98.0 F 97 10/07/16 15:50 98.8 F 112 H 26 H 118/81 95 Oxygen-Last 24 hours O2 Percentage 3 Liters = 32% O2 Percentage 3 Liters = 32% O2 Percentage 3 Liters = 32% O2 Percentage 3 Liters = 32% O2 Percentage 3 Liters = 32% O2 Percentage 3 Liters = 32% O2 Percentage 3 Liters = 32% O2 Percentage 3 Liters = 32% O2 Percentage 3 Liters = 32% O2 Percentage 3 Liters = 32% General Appearance: mild distress (cries during exam due to emotional distress) Neurologic Exam: alert, oriented x 3, cooperative Ears, Nose, Throat Exam: other (bright red blood from R nostril after coughing; stopped spontaneously) Respiratory Exam: diminished breath sounds, wheezing (exp throughout, scattered) , No crackles/rales Cardiovascular Exam: regular rate/rhythm, No murmur Gastrointestinal/Abdomen Exam: soft, normal bowel sounds, No tenderness, No distention, No mass, No guarding, No rebound Back Exam: normal inspection, other (nttp) Extremity Exam: other (R foot short cast present), No swelling Skin Exam: normal color, warm, dry Results - Labs Lab/Micro Results: Lab Results-Last 24 Hours 10/07/16 10/07/16 10/07/16 Range/Units 18:35 19:18 20:35 WBC (4.0-10.5) K/mm3 RBC (4.1-5.4) M/mm3 Hgb (12.0-16.0) gm/dl Hct (35-47) % MCV (78-100) fl MCH (26-32) pg MCHC (32-36) g/dl RDW (11.5-14.0) % Plt Count (150-450) K/mm3 MPV (6-9.5) fl Segmented Neutrophils (36.0-66.0) % Lymphocytes (Manual) (24-44) % Monocytes (Manual) (0.0-12.0) % Differential Comment Platelet Estimate (NORMAL) Sodium (136-145) mEq/L Potassium (3.5-5.1) mEq/L Chloride (98-107) mEq/L Carbon Dioxide (21-32) mEq/L Anion Gap (5-15) MEQ/L BUN (9-20) mg/dL Creatinine (0.55-1.30) mg/dl Estimated GFR ML/MIN Glucose (70-110) MG/DL Lactic Acid 4.6 H 2.8 H (0.4-2.0) Calcium (8.5-10.1) mg/dL Troponin I < 0.017 (0.000-0.056) ng/ml 10/07/16 10/08/16 10/08/16 Range/Units 22:38 01:10 04:00 WBC (4.0-10.5) K/mm3 RBC (4.1-5.4) M/mm3 Hgb (12.0-16.0) gm/dl Hct (35-47) % MCV (78-100) fl MCH (26-32) pg MCHC (32-36) g/dl RDW (11.5-14.0) % Plt Count (150-450) K/mm3 MPV (6-9.5) fl Segmented Neutrophils (36.0-66.0) % Lymphocytes (Manual) (24-44) % Monocytes (Manual) (0.0-12.0) % Differential Comment Platelet Estimate (NORMAL) Sodium (136-145) mEq/L Potassium (3.5-5.1) mEq/L Chloride (98-107) mEq/L Carbon Dioxide (21-32) mEq/L Anion Gap (5-15) MEQ/L BUN (9-20) mg/dL Creatinine (0.55-1.30) mg/dl Estimated GFR ML/MIN Glucose (70-110) MG/DL Lactic Acid 4.3 H 3.5 H (0.4-2.0) Calcium (8.5-10.1) mg/dL Troponin I < 0.017 (0.000-0.056) ng/ml 10/08/16 10/08/16 10/08/16 Range/Units 04:09 04:09 04:09 WBC 14.4 H (4.0-10.5) K/mm3 RBC 3.53 L (4.1-5.4) M/mm3 Hgb 10.0 L (12.0-16.0) gm/dl Hct 33.5 L (35-47) % MCV 94.9 (78-100) fl MCH 28.3 (26-32) pg MCHC 29.9 L (32-36) g/dl RDW 16.6 H (11.5-14.0) % Plt Count 302 (150-450) K/mm3 MPV 9.4 (6-9.5) fl Segmented Neutrophils 91 H (36.0-66.0) % Lymphocytes (Manual) 8 L (24-44) % Monocytes (Manual) 1 (0.0-12.0) % Differential Comment NORMAL Platelet Estimate NORMAL (NORMAL) Sodium 144 (136-145) mEq/L Potassium 3.8 (3.5-5.1) mEq/L Chloride 109 H (98-107) mEq/L Carbon Dioxide 23.6 (21-32) mEq/L Anion Gap 15.4 H (5-15) MEQ/L BUN 7 L (9-20) mg/dL Creatinine 0.93 (0.55-1.30) mg/dl Estimated GFR > 60 ML/MIN Glucose 152 H (70-110) MG/DL Lactic Acid (0.4-2.0) Calcium 7.8 L (8.5-10.1) mg/dL Troponin I < 0.017 (0.000-0.056) ng/ml - Other Procedures and Tests Respiratory Therapy 10/07/16 19:00 Respiratory MDI BID Respiratory Nebulizer Q4H Assessment/Plan (1) Acute exacerbation of chronic obstructive airways disease Current Visit: Yes Status: Acute Assessment & Plan: on IV rocephin and zithromax Code(s): J44.1 - CHRONIC OBSTRUCTIVE PULMONARY DISEASE W (ACUTE) EXACERBATION (2) Back pain Current Visit: Yes Status: Acute Qualifiers: Back pain location: thoracic back pain Chronicity: unspecified Back pain laterality: bilateral Qualified Code(s): M54.6 - Pain in thoracic spine Assessment & Plan: will r/o PE. will xr thoracic and lumbar spine Code(s): M54.9 - DORSALGIA, UNSPECIFIED (3) Sepsis Current Visit: Yes Status: Acute Qualifiers: Sepsis type: sepsis due to unspecified organism Qualified Code(s): A41.9 - Sepsis, unspecified organism Assessment & Plan: on IV antibiotics. LA has been elevated. Will continue giving small boluses intermittently. Recheck LA at noon today. (4) Lewy body dementia Current Visit: Yes Status: Chronic Qualifiers: Code(s): G31.83 - DEMENTIA WITH LEWY BODIES; F02.80 - DEMENTIA IN OTH DISEASES CLASSD ELSWHR W/O BEHAVRL DISTURB (5) Tobacco abuse Current Visit: Yes Status: Chronic Code(s): Z72.0 - TOBACCO USE (6) Osteonecrosis Current Visit: No Status: Chronic Code(s): M87.9 - OSTEONECROSIS, UNSPECIFIED (7) Poor social situation Current Visit: No Status: Chronic Code(s): Z65.9 - PROBLEM RELATED TO UNSPECIFIED PSYCHOSOCIAL CIRCUMSTANCES (8) Epistaxis Current Visit: Yes Status: Acute Assessment & Plan: bacitracin to nostrils Code(s): R04.0 - EPISTAXIS
[2016-10-08] MEDS ORDERED: MORPHINE SULFATE 4 MG INJ IV PRN (08:45)
--- NOTE | 2016-10-08 09:54 | XRAY ---
Indication: Short of breath. Lower back pain. Multiple contiguous axial images obtained through the chest using 80 cc Isovue 370 contrast and PE protocol. Comparison: CT chest without contrast January 09, 2010. There is suboptimal opacification of the pulmonary arteries. No large central pulmonary embolus. Heart is not enlarged. Aorta is normal in course and caliber. Again left hilar calcified nodes. No pathologic mediastinal/hilar lymphadenopathy. Examination of the lung parenchyma again demonstrates minimal emphysema in both upper lobes and right upper lobe pleural parenchymal fibrosis/scarring. There is minimal bilateral dependent atelectasis and tiny right effusion. No suspicious pulmonary mass/nodule or infiltrate. Bony thorax intact with new findings including remote appearing T7 endplate concave deformity with approximately 25% height loss, old left 3rd/4th/12th rib fractures, and healing bilateral 9th rib fracture. Limited upper abdomen demonstrates new left renal calculi largest 9 mm incompletely evaluated. Impression: 1. Pulmonary embolus evaluation limited due to suboptimal contrast opacification. No large central pulmonary embolus. 2. No acute cardiopulmonary abnormalities. 3. Stable minimal pulmonary emphysema, fibrosis/scarring, and evidence for old granulomatous disease. 4. New left renal calculi incompletely evaluated. 5. New bony findings including old T9 endplate fracture, old left 3rd/4th/12th rib fractures, and healing bilateral 9th rib fractures. CT DI 24.03.
[2016-10-08] MEDS: Klor Con 10 MEQ PO SCH ×4 (09:56→21:26)
[2016-10-08] MEDS: zyPREXA 5MG TABLET PO SCH (09:57)
[2016-10-08] MEDS: Protonix 40MG Tablet PO SCH (09:57)
[2016-10-08] MEDS: CLARITIN 10 MG PO SCH (09:57)
[2016-10-08] MEDS: DELTASONE 10 MG PO SCH (09:57)
[2016-10-08] MEDS: LYRICA 100MG PO SCH ×2 (09:57→21:26)
[2016-10-08] MEDS: Pepcid 20 MG VIAL IV SCH ×2 (09:58→21:27)
[2016-10-08] MEDS: Zanaflex 4 MG PO SCH (09:58)
[2016-10-08] MEDS: Klonopin 0.5 MG PO SCH ×2 (09:58→21:27)
[2016-10-08] MEDS: BACIGUENT 30 GM TOP SCH ×2 (09:59→21:28)
[2016-10-08] MEDS: Zithromax 500 MG/ 250 ML NaCl Premix 500 MG/250 ML IVPB IV SCH (10:00)
[2016-10-08] MEDS ORDERED: TIZANIDINE HCL 2 MG PO SCH (10:00)
[2016-10-08] MEDS ORDERED: Atrovent HFA MDI IH SCH (10:00)
[2016-10-08] MEDS ORDERED: CLONAZEPAM 1 MG PO SCH (10:00)
[2016-10-08] MEDS ORDERED: NAPROXEN 500 MG PO SCH (10:00)
[2016-10-08] MEDS: ROCEPHIN 1 Gm-D5w 50 ml Bag** 1 G/50 ML IVPB IV SCH (10:08)
[2016-10-08] MEDS: Naprosyn 500 MG PO SCH ×2 (10:35→17:23)
[2016-10-08] MEDS: MYSOLINE 50MG PO SCH ×2 (10:35→21:25)
[2016-10-08 12:12] LABS: Lactic Acid 2.9 (0.4-2.0)
[2016-10-08] MEDS ORDERED: Zofran 4 MG/2 ML VIAL IV PRN (13:35)
[2016-10-08] MEDS: DESYREL 50 MG PO SCH (21:25)
[2016-10-08] MEDS: DALIRESP PO SCH (21:26)
[2016-10-08] MEDS: Nicoderm CQ 21 MG TOP SCH (21:27)
[2016-10-09] MEDS: DUONEB 0.5-3 MG/3 ml Neb IH SCH ×6 (03:26→23:16)
[2016-10-09] MEDS: Sodium Chloride 0.9% 1000 ML 1,000 ML IV SCH (05:21)
[2016-10-09 05:40] LABS: Lactic Acid 2.4 (0.4-2.0)
[2016-10-09] MEDS: solu-MEDROL 125 MG IV SCH ×4 (06:30→22:00)
[2016-10-09] MEDS: Advair Hfa 230/21 Mcg COMMON CANISTER IH SCH ×2 (07:07→19:20)
[2016-10-09] MEDS: Naprosyn 500 MG PO SCH ×2 (08:02→17:39)
--- NOTE | 2016-10-09 08:56 | PCM.NOTE ---
Date and Time: 10/09/16850 Subjective Assessment: Pt states she is better and she wants to go home. Tristan po very well. - Review of Systems Constitutional: No Fever Respiratory: Cough Objective Exam General Appearance: no apparent distress Neurologic Exam: alert, cooperative, other (cries through most of the interview , would like to go home) Skin Exam: normal color, warm, dry Respiratory Exam: diminished breath sounds, prolonged expirations, wheezing, No crackles/rales, No rhonchi Cardiovascular Exam: regular rate/rhythm, normal heart sounds, No murmur Gastrointestinal/Abdomen Exam: soft, normal bowel sounds, No tenderness, No distention, No guarding, No rebound OBJECTIVE DATA Vital Signs: Vital Signs - 24 hr Temp Pulse Resp BP Pulse Ox 10/09/16 07:31 98.0 F 81 18 123/61 100 10/09/16 07:08 92 H 18 99 10/09/16 04:00 98.4 F 94 H 23 126/61 100 10/09/16 03:26 94 H 23 100 10/09/16 00:00 98.7 F 100 H 22 101/50 99 10/08/16 23:11 100 H 22 99 10/08/16 20:00 97.9 F 96 H 22 101/52 95 10/08/16 18:59 90 24 99 10/08/16 16:00 98.4 F 79 18 111/56 98 10/08/16 15:53 22 10/08/16 14:52 76 22 99 10/08/16 11:57 18 10/08/16 11:18 98.1 F 98 H 18 187/95 94 L 10/08/16 10:51 97 H 20 99 Oxygen-Last 24 hours O2 Percentage 3 Liters = 32% O2 Percentage 3 Liters = 32% O2 Percentage 3 Liters = 32% Pain Assessment - Last Documented Pain Intensity 4 Pain Scale Used 0-10 Pain Scale Intake and Output: Intake & Output 10/06/16 10/07/16 10/08/16 10/09/16 11:59 11:59 11:59 11:59 Intake Total 2272 3471 Output Total 350 1350 Balance 1922 2121 Weight 82.146 kg Lab Results: Lab Results-Last 24 Hours 10/07/16 10/08/16 10/09/16 Range/Units 22:38 12:00 05:32 Lactic Acid 4.3 H 2.9 H 2.4 H (0.4-2.0) Radiology Exams: Radiology Procedures Category Date Time Status CHEST WITH CONTRAST [CT] Stat Exams 10/08/16 08:42 Completed ULTRASOUND BILATERAL LOWER EXTREMITY [VENOUS BILATERAL Exams 10/08/16 10:09 Taken EXTREMITY] [US] Routine Assessment/Plan (1) Acute exacerbation of chronic obstructive airways disease Current Visit: Yes Status: Acute Assessment & Plan: She needs at least one more day of IV antibiotics. Probably could benefit from more but I will re-assess tomorrow in light of physical and emotional health. Her lactate is decreased this morning. Recheck labs in a.m. Code(s): J44.1 - CHRONIC OBSTRUCTIVE PULMONARY DISEASE W (ACUTE) EXACERBATION (2) Back pain Current Visit: Yes Status: Acute Qualifiers: Back pain location: thoracic back pain Chronicity: unspecified Back pain laterality: bilateral Qualified Code(s): M54.6 - Pain in thoracic spine Assessment & Plan: better with pain meds. Hurts with coughing. Musculoskeletal. Code(s): M54.9 - DORSALGIA, UNSPECIFIED (3) Sepsis Current Visit: Yes Status: Resolved Qualifiers: Sepsis type: sepsis due to unspecified organism Qualified Code(s): A41.9 - Sepsis, unspecified organism Assessment & Plan: Resolved. I tried to explain to the patient that she was very ill when she came to the hospital. She does not appear to fully understand. (4) Lewy body dementia Current Visit: Yes Status: Chronic Qualifiers: Assessment & Plan: She appears somewhat less oriented and rational than usual this morning. She told me "doctors and nurses have been in here since 6:30 this morning." (no doctor has entered before I came in). She thinks the nurses are "bothered" by her. She is insistent, even when I explain treatment rationale, that she go home today. She is not being discharged home today. Code(s): G31.83 - DEMENTIA WITH LEWY BODIES; F02.80 - DEMENTIA IN OTH DISEASES CLASSD ELSWHR W/O BEHAVRL DISTURB (5) Tobacco abuse Current Visit: Yes Status: Chronic Assessment & Plan: has nicotine patch currently. Code(s): Z72.0 - TOBACCO USE (6) Osteonecrosis Current Visit: No Status: Chronic Code(s): M87.9 - OSTEONECROSIS, UNSPECIFIED (7) Poor social situation Current Visit: No Status: Chronic Assessment & Plan: Her daughter was supposed to return home yesterday. Would like RNs to contact daughter today and make sure that they will be ready for pt if she returns home tomorrow or in the next couple of days. Code(s): Z65.9 - PROBLEM RELATED TO UNSPECIFIED PSYCHOSOCIAL CIRCUMSTANCES (8) Epistaxis Current Visit: Yes Status: Resolved Code(s): R04.0 - EPISTAXIS
[2016-10-09] MEDS: Zanaflex 4 MG PO SCH (09:01)
[2016-10-09] MEDS: Klonopin 0.5 MG PO SCH ×2 (09:01→21:59)
[2016-10-09] MEDS: Klor Con 10 MEQ PO SCH ×3 (09:02→22:00)
[2016-10-09] MEDS: zyPREXA 5MG TABLET PO SCH (09:03)
[2016-10-09] MEDS: LYRICA 100MG PO SCH ×2 (09:03→21:58)
[2016-10-09] MEDS: DELTASONE 10 MG PO SCH (09:03)
[2016-10-09] MEDS: MYSOLINE 50MG PO SCH ×2 (09:03→21:59)
[2016-10-09] MEDS: Protonix 40MG Tablet PO SCH (09:03)
[2016-10-09] MEDS: CLARITIN 10 MG PO SCH (09:03)
[2016-10-09] MEDS: ROCEPHIN 1 Gm-D5w 50 ml Bag** 1 G/50 ML IVPB IV SCH (09:04)
[2016-10-09] MEDS ORDERED: DURAGESIC TOP SCH (10:00)
[2016-10-09] MEDS: Zithromax 500 MG/ 250 ML NaCl Premix 500 MG/250 ML IVPB IV SCH (10:09)
[2016-10-09] MEDS: BACIGUENT 30 GM TOP SCH ×2 (10:15→22:02)
[2016-10-09] MEDS: Pepcid 20 MG VIAL IV SCH ×2 (10:15→22:00)
[2016-10-09] MEDS ORDERED: Sodium Chloride 0.9% 1000 ML 1,000 ML ONE (15:50)
[2016-10-09] MEDS: Norco 10/325 MG Tablet PO PRN (19:55)
[2016-10-09] MEDS: DALIRESP PO SCH (21:58)
[2016-10-09] MEDS: DESYREL 50 MG PO SCH (21:59)
[2016-10-09] MEDS: Nicoderm CQ 21 MG TOP SCH (21:59)
[2016-10-10] MEDS ORDERED: Sodium Chloride 0.9% 1000 ML 1,000 ML IV SCH (01:45)
[2016-10-10] MEDS: DUONEB 0.5-3 MG/3 ml Neb IH SCH ×3 (03:18→11:22)
[2016-10-10 05:41] LABS: Mean Cell Volume 94.7 fl (78-100); Mean Corpuscular Hemoglobin 28.3 pg (26-32); Mean Platelet Volume 10.4 fl (6-9.5); Platelet Count 283 K/mm3 (150-450); Red Blood Count 3.39 M/mm3 (4.1-5.4); Red Cell Distribution Width 16.9 % (11.5-14.0); White Blood Count 18.3 K/mm3 (4.0-10.5)
[2016-10-10 05:54] LABS: ANION GAP 11.5 MEQ/L (5-15); BLOOD UREA NITROGEN 11 mg/dL (9-20); CHLORIDE 109 mEq/L (98-107); Carbon Dioxide 26.9 mEq/L (21-32); Glucose 134 MG/DL (70-110); MAGNESIUM 1.5 mg/dL (1.8-2.4); Potassium 4.4 mEq/L (3.5-5.1); SODIUM 143 mEq/L (136-145)
[2016-10-10] MEDS: solu-MEDROL 125 MG IV SCH (06:16)
[2016-10-10] MEDS: Norco 10/325 MG Tablet PO PRN (06:17)
[2016-10-10 06:52] LABS: BAND 2 % (0.0-2.0); Platelet Estimate NORMAL (NORMAL); Total Cells Counted 100
[2016-10-10] MEDS: Advair Hfa 230/21 Mcg COMMON CANISTER IH SCH (06:53)
[2016-10-10] MEDS: Naprosyn 500 MG PO SCH (08:12)
--- NOTE | 2016-10-10 09:05 | PCM.DS ---
Discharge Summary Date of Admission: 10/07/16 17:15 Admitting Physician: JETT RUSSELL Primary Care Provider: JETT RUSSELL Allergies Allergies aspirin [From Aspirin Regimen Cheri/Calcium] Adverse Reaction (Mild, Verified 15:57) Nausea calcium carbonate [From Aspirin Regimen Cheri/Calcium] Adverse Reaction (Mild, Verified 10/07/16 15:57) Nausea Hospital Summary - Hospital Course Hospital Course: Pt admitted from home wiht COPD exacerbation; very SOB and d-dimer elevated but chest neg for PE and u/s neg for DVT (pt does have cast on R leg but legs are asx for DVT). She is feeling "fine," would like to go home. Tristan po very well. Up out of bed to chair yesterday. - Vitals & Intake/Output Vital Signs: Vital Signs Temperature 98.2 F 10/10/16 07:06 Pulse Rate 97 H 10/10/16 07:06 Respiratory Rate 18 10/10/16 08:00 Blood Pressure 98/55 10/10/16 07:06 O2 Sat by Pulse Oximetry 98 10/10/16 07:06 Oxygen-Last Documented O2 Percentage 2 Liters = 28% Intake & Output: Intake & Output 10/07/16 10/08/16 10/09/16 10/10/16 11:59 11:59 11:59 11:59 Intake Total 2272 3471 3561 Output Total 350 1350 3750 Balance 1922 2121 -189 Weight 82.146 kg - Lab Result Diagrams: 10/10/16 05:15 10/10/16 05:15 Lab Results-Last 24 Hrs: Lab Results-Last 24 Hours 10/10/16 10/10/16 Range/Units 05:15 05:15 WBC 18.3 H (4.0-10.5) K/mm3 RBC 3.39 L (4.1-5.4) M/mm3 Hgb 9.6 L (12.0-16.0) gm/dl Hct 32.1 L (35-47) % MCV 94.7 (78-100) fl MCH 28.3 (26-32) pg MCHC 29.9 L (32-36) g/dl RDW 16.9 H (11.5-14.0) % Plt Count 283 (150-450) K/mm3 MPV 10.4 H (6-9.5) fl Segmented Neutrophils 92 H (36.0-66.0) % Band Neutrophils 2 (0.0-2.0) % Lymphocytes (Manual) 4 L (24-44) % Monocytes (Manual) 2 (0.0-12.0) % Differential Comment NORMAL Platelet Estimate NORMAL (NORMAL) Sodium 143 (136-145) mEq/L Potassium 4.4 (3.5-5.1) mEq/L Chloride 109 H (98-107) mEq/L Carbon Dioxide 26.9 (21-32) mEq/L Anion Gap 11.5 (5-15) MEQ/L BUN 11 (9-20) mg/dL Creatinine 0.78 (0.55-1.30) mg/dl Estimated GFR > 60 ML/MIN Glucose 134 H (70-110) MG/DL Calcium 8.1 L (8.5-10.1) mg/dL Magnesium 1.5 L (1.8-2.4) mg/dL Micro Results-Entire Visit: Microbiology 10/08/16 01:00 - Final Catherized NO GROWTH - Radiology Exams Ordered Rad Exams-Entire Visit: Radiology Procedures Category Date Time Status CHEST WITH CONTRAST [CT] Stat Exams 10/08/16 08:42 Completed ULTRASOUND BILATERAL LOWER EXTREMITY [VENOUS BILATERAL Exams 10/08/16 10:09 Taken EXTREMITY] [US] Routine - Procedures and Test Procedures and Tests throughout Hospitalization: Therapy Orders & Screens 10/07/16 18:24 OT Screen per Nursing Assess Comment: Protocol Order Physician Instructions: Greater than 3 points order OT Admission Screening Reason For Exam: Triggered on Admission Diagnosis: COPD. elevated D-Dimer. Dementia Open Wound/Cellutlitis/Pressure Ulcers: No Acute Fx/ORIF/Change in wt bearing status: Yes Severe MUSCULOSKELETAL pain: No ADL Dysfunction: Yes Acute CVA w/Hemiparesis/Hemiplegia: No Decreased Functional Mobility/Strength: Yes Sprain/Strain: No Acute Post-op Mobility Dysfunction: Yes Total Points: 12 PT Screen per Nursing Assess ONCE Comment: Protocol Order Physician Instructions: Greater than 3 points order PT Admission Screenin Reason For Exam: Triggered on Admission Diagnosis: COPD. elevated D-Dimer. Dementia Open Wound/Cellutlitis/Pressure Ulcers: No Acute Fx/ORIF/Change in wt bearing status: Yes Severe MUSCULOSKELETAL pain: No ADL Dysfunction: Yes Acute CVA w/Hemiparesis/Hemiplegia: No Decreased Functional Mobility/Strength: Yes Sprain/Strain: No Acute Post-op Mobility Dysfunction: Yes Total Points: 12 RT Screen per Nursing Assess ONCE Comment: Protocol Order Physician Instructions: Greater than 3 points order RT Admission Screen Reason For Exam: Triggered on Admission Diagnosis: COPD. elevated D-Dimer. Dementia Diagnosis: COPD. elevated D-Dimer. Dementia Pneumonia: No Home O2: Yes Asthma: No CHF: No Home CPAP/BIPAP: No Home Nebs/MDI: Yes Total Points: 10 Smoking Cessation Education ONCE Comment: Diagnosis: COPD. elevated D-Dimer. Dementia Smoking Status: Current every day smoker How long have you smoked: 50 Have you smoked in the past 12 months: Yes Approximately how many cigarettes per day: 1.5 packs Do you dip or chew tobacco: No If,Former Smoker,when did you quit: 2 weeks ago 10/07/16 19:00 Respiratory MDI Q12H Comment: [place] 230/21 BID Diagnosis: Shortness of Breath Respiratory Nebulizer Q4H Comment: [place] Q4 Diagnosis: Shortness of Breath Discharge Exam General Appearance: no apparent distress Neurologic Exam: alert, oriented x 3, cooperative Skin Exam: normal color, warm, dry Respiratory Exam: diminished breath sounds (good air exchange), wheezing ( scattered exp wheeze, mild to mod), No crackles/rales, No rhonchi Cardiovascular Exam: regular rate/rhythm, normal heart sounds, No murmur Extremity Exam: other (cast R ankle, no edema inferior or superior to cast), No pedal edema, No swelling Final Diagnosis/Problem List - Final Discharge Diagnosis/Problem (1) Acute exacerbation of chronic obstructive airways disease Current Visit: Yes Status: Acute Assessment & Plan: Home on po cefdinir and prednisone. (2) Back pain Current Visit: Yes Status: Acute Assessment & Plan: no c/o this morning. (3) Sepsis Current Visit: Yes Status: Resolved (4) Lewy body dementia Current Visit: Yes Status: Chronic (5) Tobacco abuse Current Visit: Yes Status: Chronic (6) Osteonecrosis Current Visit: No Status: Chronic (7) Poor social situation Current Visit: No Status: Chronic (8) Epistaxis Current Visit: Yes Status: Resolved - Discharge Disposition: Home, Self-Care Condition: Fair Prescriptions: New Cefdinir 300 mg PO BID #24 capsule Prednisone 20 mg [Deltasone 20 mg] 20 mg PO DAILY #17 tablet Continue Hydrocodone Bit/Acetaminophen [[place] 10-325 Tablet] 1 each PO QID PRN PRN PRN Reason: Pain Potassium Chloride 10 Meq Tab* [Klor Con 10 MEQ] 10 meq PO BID Fluticasone/Salmeterol 230/21 [Advair Hfa 230/21 Mcg COMMON CANISTER*] 2 puff IH BIDRT Prednisone 10 mg [Deltasone 10 mg] 10 mg PO DAILY Loratadine 10 mg [Claritin 10 mg] 10 mg PO DAILY Famotidine 20 mg [Pepcid 20 MG] 20 mg PO HS Roflumilast [Daliresp] 500 mcg PO HS Pramipexole Di-HCl [Mirapex] 1 - 2 tablet PO HS PRN PRN PRN Reason: Muscle Spasms Primidone 50 MG [Mysoline 50Mg] 50 mg PO DAILY Escitalopram Oxalate [Lexapro] 20 mg PO DAILY Bisacodyl 5 mg [Dulcolax 5 mg] 5 mg PO DAILY PRN PRN PRN Reason: Constipation Trazodone HCl 50 mg [Desyrel 50 mg] 50 mg PO HS Pregabalin [Lyrica 100Mg] 200 mg PO BID Promethazine HCl 12.5 mg PO QID PRN PRN Reason: Nausea PANTOPRAZOLE 40 mg Tablet [Protonix 40MG Tablet] 40 mg PO DAILY Tizanidine HCl 2 mg PO DAILY Amitriptyline HCl 150 mg PO HS Fentanyl [Duragesic 12MCG Patch] 12 mcg TOP Q3D Fentanyl 100 Mcg Patch [Duragesic 100 MCG Patch] 100 mcg TOP Q3D Olanzapine [Zyprexa] 5 mg PO DAILY Primidone 50 MG [Mysoline 50Mg] 100 mg PO HS Albuterol/Ipratropium 3ml Neb* [DUONEB 0.5-3 MG/3 ml Neb] 3 ml IH QID Naproxen [EC-Naprosyn] 500 mg PO BID Loperamide HCl 2 mg [Imodium 2 mg] 2 mg PO Q4HPRN PRN PRN Reason: Diarrhea Clonazepam 1 mg PO BID Zonisamide [Zonegran] 100 mg PO BID Ondansetron [Zofran Odt] 4 mg PO Q6HPRN PRN PRN Reason: Nausea/Vomiting Ipratropium Dorsey Hfa [Atrovent HFA MDI] 17 gm IH QID Diclofenac Sodium Gel [Voltaren GEL] 1 applic TP QID PRN Follow up with: JETT RUSSELL [Primary Care Provider] - 10/17/16 10:45 am Forms: Patient Portal Information
[2016-10-10] MEDS: Zanaflex 4 MG PO SCH (11:02)
[2016-10-10] MEDS: Klonopin 0.5 MG PO SCH (11:02)
[2016-10-10] MEDS: Klor Con 10 MEQ PO SCH (11:03)
[2016-10-10] MEDS: LYRICA 100MG PO SCH (11:03)
[2016-10-10] MEDS: Protonix 40MG Tablet PO SCH (11:03)
[2016-10-10] MEDS: MYSOLINE 50MG PO SCH (11:04)
[2016-10-10] MEDS: DELTASONE 10 MG PO SCH (11:05)
[2016-10-10] MEDS: zyPREXA 5MG TABLET PO SCH (11:05)
[2016-10-10] MEDS: CLARITIN 10 MG PO SCH (11:05)
[2016-10-10] MEDS: BACIGUENT 30 GM TOP SCH (11:06)
[2016-10-10] MEDS: Pepcid 20 MG VIAL IV SCH (11:07)
[2016-10-10] MEDS: ROCEPHIN 1 Gm-D5w 50 ml Bag** 1 G/50 ML IVPB IV SCH (11:08)
[2016-10-10] MEDS: Zithromax 500 MG/ 250 ML NaCl Premix 500 MG/250 ML IVPB IV SCH (11:08)
[2016-10-10 11:24] VITALS: BP 156/84
[2016-10-10 11:28] VITALS: PULSE 110; O2SAT 99
--- NOTE | 2016-10-10 14:19 | XRAY ---
Indication: Elevated d-dimer. Two-dimensional sonogram and color Doppler imaging of the major venous vessels of the left and right leg was performed. Comparison: None Right lower leg not evaluated due to overlying cast. Elsewhere no thrombus seen in the examined deep venous vessels of the left and right leg including greater saphenous veins. Veins demonstrate normal compressibility. Venous waveforms are normal with and without augmentation. Impression: Right lower leg not evaluated as detailed. Left and right leg negative for DVT.
== END 2016-10-10 12:17 | disposition home health service (06) ==
LOC: ED 15:49 → UNDOADMOB 17:15 → INTOOBSV 17:15 → MED SURG 17:15 → UNDODISOB 10-10 12:17
PROVIDERS: ADMIT Family Medicine; ATTEND Family Medicine
DX: J44.1 Chronic obstructive pulmonary disease with (acute) exacerbation (principal); M54.9 Dorsalgia, unspecified; A41.9 Sepsis, unspecified organism; G31.83 Neurocognitive disorder with Lewy bodies; F02.80 Dementia in other diseases classified elsewhere, unspecified severity, without behavioral disturbance, psychotic disturbance, mood disturbance, and anxiety; M87.9 Osteonecrosis, unspecified; Z60.9 Problem related to social environment, unspecified; R04.0 Epistaxis; F41.8 Other specified anxiety disorders; E03.9 Hypothyroidism, unspecified; M79.7 Fibromyalgia; M19.90 Unspecified osteoarthritis, unspecified site; F31.9 Bipolar disorder, unspecified; K21.9 Gastro-esophageal reflux disease without esophagitis; Z72.0 Tobacco use
CPT/HCPCS: 36415; 36600; 71010; 71260; 80048; 80053; 81000; 82375; 82803; 83605; 83735; 84484; 85025; 85379; 87040; 87086; 93005; 93041; 93970; 94640; 94760; 94770; 96360; 96365; 96372; 99285; G0378; J0456; J0696; J1650; J2930; P9612; A9270-GY; J7506

== ENCOUNTER 2016-10-16 09:45 | Emergency (ER) | payer OTHER ==
[2016-10-16] MEDS ORDERED: TORAdol 30 mg Injection IV ONE (10:23)
[2016-10-16] MEDS ORDERED: Cyclobenzaprine 10 MG PO ONE (10:24)
--- NOTE | 2016-10-16 10:25 | ERPHSYRPT ---
- History of Present Illness Time Seen by Provider: 10/16/16 10:21 Source: patient, family Exam Limitations: no limitations Patient Subjective Stated Complaint: PT REPORTS CHEST PAIN BEGINNING LAST SATURDAY-STATES THAT IT WAS THE DAY AFTER SHE WAS RELEASED FROM THE HOSPITAL- STATES SHE CAN NOT TAKE THE PAIN ANYMORE BUT DENIES CHANGES IN PAIN-DENIES COUGH -PT ON HOME 3L OF O2 PT DID NOT BRING O2 ON DRIVE TO HOSP Triage Nursing Assessment: PT ANXIOUS ET TEARFUL UPON ARRIVAL TO ED-PT ABLE TO SPEAK IN SENTENCES-LUNGS DIMINISHED-EDEMA NOTED TO LEFT FOOT-PT STATES THAT IS NORMAL FOR HER Physician History: The patient is a 61-year-old female with her daughter complaining of increasing mid back pain for the last 2-3 days. She was hospitalized for COPD exacerbation patient on October 07 and discharge October 10. She states that the doctor wanted her to stay longer in the hospital but she got mad at her doctor and wanted to go home. She states she hasn't been feeling well since being discharged week ago. Her back pain has increased. It hurts when she takes a deep breath, leans forward, or moves her trunk. She is a relatively poor historian and her daughter provides a significant amount of the details of her history. Her past medical history is significant for COPD, fibromyalgia, anxiety, osteoarthritis, GERD, and depression. She has a recent right lower extremity fracture. Timing/Duration: day(s) (2) Method of Injury: unknown Quality: cramping, stabbing Back Pain Location: T-spine Severity of Pain-Max: severe Severity of Pain-Current: severe Modifying Factors: Improves With: pain medication Associated Symptoms: denies symptoms Previous symptoms: no prior history Allergies/Adverse Reactions: aspirin [From Aspirin Regimen Cheri/Calcium] Adverse Reaction (Mild, Verified 09:54) Nausea calcium carbonate [From Aspirin Regimen Cheri/Calcium] Adverse Reaction (Mild, Verified 10/16/16 09:54) Nausea Home Medications: Albuterol/Ipratropium 3ml Neb* [DUONEB 0.5-3 MG/3 ml Neb] 3 ml IH QID [History] Amitriptyline HCl 150 mg PO HS 07/27/16 [History] Bisacodyl 5 mg [Dulcolax 5 mg] 5 mg PO DAILY PRN PRN 07/27/16 [History] Escitalopram Oxalate [Lexapro] 20 mg PO DAILY 07/27/16 [History] Famotidine 20 mg [Pepcid 20 MG] 20 mg PO HS 07/27/16 [History] Fentanyl 100 Mcg Patch [Duragesic 100 MCG Patch] 100 mcg TOP Q3D 07/27/16 [History] Fentanyl [Duragesic 12MCG Patch] 12 mcg TOP Q3D 07/27/16 [History] Fluticasone/Salmeterol 230/21 [Advair Hfa 230/21 Mcg COMMON CANISTER*] 2 puff IH BIDRT 07/27/16 [History] Hydrocodone Bit/Acetaminophen [[place] 10-325 Tablet] 1 each PO QID PRN PRN [History] Loratadine 10 mg [Claritin 10 mg] 10 mg PO DAILY 07/27/16 [History] Olanzapine [Zyprexa] 5 mg PO DAILY 07/27/16 [History] PANTOPRAZOLE 40 mg Tablet [Protonix 40MG Tablet] 40 mg PO DAILY 07/27/16 [ History] Potassium Chloride 10 Meq Tab* [Klor Con 10 MEQ] 10 meq PO BID 07/27/16 [ History] Pramipexole Di-HCl [Mirapex] 1 - 2 tablet PO HS PRN PRN 07/27/16 [History] Prednisone 10 mg [Deltasone 10 mg] 10 mg PO DAILY 07/27/16 [History] Pregabalin [Lyrica 100Mg] 200 mg PO BID 07/27/16 [History] Primidone 50 MG [Mysoline 50Mg] 50 mg PO DAILY 07/27/16 [History] Primidone 50 MG [Mysoline 50Mg] 100 mg PO HS 07/27/16 [History] Promethazine HCl 12.5 mg PO QID PRN 07/27/16 [History] Roflumilast [Daliresp] 500 mcg PO HS 07/27/16 [History] Tizanidine HCl 2 mg PO DAILY 07/27/16 [History] Trazodone HCl 50 mg [Desyrel 50 mg] 50 mg PO HS 07/27/16 [History] Clonazepam 1 mg PO BID 09/05/16 [History] Loperamide HCl 2 mg [Imodium 2 mg] 2 mg PO Q4HPRN PRN 09/05/16 [History] Naproxen [EC-Naprosyn] 500 mg PO BID 09/05/16 [History] Ondansetron [Zofran Odt] 4 mg PO Q6HPRN PRN 09/05/16 [History] Zonisamide [Zonegran] 100 mg PO BID 09/05/16 [History] Diclofenac Sodium Gel [Voltaren GEL] 1 applic TP QID PRN 10/07/16 [History ] Ipratropium [place] Hfa [Atrovent HFA MDI] 17 gm IH QID 10/07/16 [History] Hx Tetanus, Diphtheria Vaccination/Date Given: Yes (unknown) Hx Influenza Vaccination/Date Given: No Hx Pneumococcal Vaccination/Date Given: No Immunizations Up to Date: Yes - Review of Systems Constitutional: No Fever, No Chills Eyes: No Symptoms Ears, Nose, & Throat: No Symptoms Respiratory: No Cough, No Dyspnea Cardiac: No Chest Pain, No Edema, No Syncope Abdominal/Gastrointestinal: No Abdominal Pain, No Nausea, No Vomiting, No Diarrhea Genitourinary Symptoms: No Dysuria Musculoskeletal: Back Pain Skin: No Rash Neurological: No Dizziness, No Focal Weakness, No Sensory Changes Psychological: No Symptoms Endocrine: No Symptoms (he) Hematologic/Lymphatic: No Symptoms Immunological/Allergic: No Symptoms All Other Systems: Reviewed and Negative - Past Medical History Pertinent Past Medical History: Yes Neurological History: Dementia, Migraines ENT History: No Pertinent History Cardiac History: No Pertinent History Respiratory History: COPD Endocrine Medical History: Hypothyroidism Musculoskeletal History: Fibromyalgia, Osteoarthritis, Osteoporosis GI Medical History: GERD, Hernia History: No Pertinent History Psycho-Social History: Anxiety, Bipolar, Depression, Eating Disorders, Panic Disorder Female Reproductive Disorders: Abnormal Uterine Bleeding Other Medical History: NEURO CHANGES TO LEGS AND ARMS - Past Surgical History Past Surgical History: Yes Neuro Surgical History: No Pertinent History Cardiac: No Pertinent History Respiratory: No Pertinent History Gastrointestinal: No Pertinent History Genitourinary: No Pertinent History Musculoskeletal: No Pertinent History Female Surgical History: Hysterectomy, Tubal Ligation Other Surgical History: scope on lungs,bx done"cleaned my lungs",childbirth natural x three,jaw screws place -had rib bone placed to jaw,fatty tumors removed from back and right hand,right hand nodule removed in september 2011 - Social History Smoking Status: Current every day smoker How long have you smoked: 50 Exposure to second hand smoke: Yes Alcohol Use: None Drug Use: none Patient Lives Alone: No (lives at home with a boyfriend. Has HHC.) Significant Family History: no pertinent family hx - Female History Hx Now: No - Nursing Vital Signs Nursing Vital Signs: Initial Vital Signs Pulse Rate 65 10/16/16 09:46 Pain Scale Pain Intensity 10 - Physical Exam General Appearance: moderate distress (he) Eye Exam: PERRL/EOMI, eyes nml inspection Ears, Nose, Throat Exam: normal ENT inspection Neck Exam: normal inspection, non-tender, supple, full range of motion, No meningismus, No midline tenderness Respiratory Exam: normal breath sounds, lungs clear, No respiratory distress Cardiovascular Exam: regular rate/rhythm, normal heart sounds Gastrointestinal Exam: soft, No tenderness, No mass Pelvic Exam: not done Rectal Exam: not done Back Exam: decreased range of motion, muscle spasm, other (Examination of the mid back shows tenderness of the paraspinous muscles bilaterally.) Extremity Exam: normal inspection, normal range of motion, No calf tenderness, No pedal edema Neurologic Exam: alert, oriented x 3, cooperative, supervisor pre wave II-XII nml as tested, normal mood/affect, nml station & gait, sensation nml, No motor deficits Skin Exam: normal color, warm, dry, No rash SpO2 Interpretation: normal SpO2: 97 Oxygen Delivery: Nasal Cannula - Course EKG Interpreted by Me: RATE, Sinus Tach, NORMAL AXIS, NORMAL INTERVALS, NORMAL QRS, NORMAL ST-T (no change comp to EKG 10/07/16) Ordered Tests: Active Orders 24 hr Category Date Time Status Motor Adjuster STAT Care 10/16/16 10:21 Active EKG-ER Only STAT Care 10/16/16 10:21 Active IV Insertion STAT Care 10/16/16 10:21 Active Pulse Oximetry (ED) STAT Care 10/16/16 10:21 Active CHEST 2 VIEWS (PA AND LAT) Stat Exams 10/16/16 10:22 Completed CBC W DIFF Stat Lab 10/16/16 10:38 Completed CMP Stat Lab 10/16/16 10:38 Completed Lactic Acid Stat Lab 10/16/16 10:21 Results Manual Differential NC Stat Lab 10/16/16 10:38 Completed NT PRO BNP Stat Lab 10/16/16 10:38 Completed TROPONIN Q3H Lab 10/16/16 10:30 Completed TROPONIN Q3H Lab 10/16/16 13:30 Ordered TROPONIN Q3H Lab 10/16/16 16:30 Ordered TROPONIN Q3H Lab 10/16/16 19:30 Ordered TROPONIN Q3H Lab 10/16/16 22:30 Ordered UA W/RFX UR CULTURE Stat Lab 10/16/16 10:24 Ordered Medication Summary Discontinued Medications Generic Name Dose Route Start Last Admin Trade Name Freq PRN Reason Stop Dose Admin Cyclobenzaprine HCl 10 mg 10/16/16 10:24 10/16/16 10:38 Cyclobenzaprine 10 Mg PO 10/16/16 10:25 10 mg STAT ONE Administration Cyclobenzaprine HCl Confirm 10/16/16 10:31 Cyclobenzaprine 10 Mg Administered 10/16/16 10:32 Dose 10 mg .ROUTE .STK-MED ONE Ketorolac Tromethamine 30 mg 10/16/16 10:23 10/16/16 10:38 Toradol 30 Mg Injection IV 10/16/16 10:24 30 mg STAT ONE Administration Ketorolac Tromethamine Confirm 10/16/16 10:31 Toradol 30 Mg Injection Administered 10/16/16 10:32 Dose 30 mg .ROUTE .STK-MED ONE Lab/Rad Data: Laboratory Result Diagrams 10/16/16 10:38 10/16/16 10:38 Laboratory Results 10/16/16 10/16/16 10/16/16 Range/Units 10:38 10:38 10:30 WBC 22.7 H (4.0-10.5) K/mm3 RBC 4.10 (4.1-5.4) M/mm3 Hgb 11.6 L (12.0-16.0) gm/dl Hct 39.3 (35-47) % MCV 95.9 (78-100) fl MCH 28.2 (26-32) pg MCHC 29.5 L (32-36) g/dl RDW 17.7 H (11.5-14.0) % Plt Count 394 (150-450) K/mm3 MPV 9.2 (6-9.5) fl Gran % 80.8 H (36.0-66.0) % Lymphocytes % 10.0 L (24.0-44.0) % Monocytes % 8.7 (0.0-12.0) % Eosinophils % 0.4 (0.00-5.0) % Basophils % 0.1 (0.0-0.4) % Segmented Neutrophils 70 H (36.0-66.0) % Band Neutrophils 4 H (0.0-2.0) % Lymphocytes (Manual) 12 L (24-44) % Monocytes (Manual) 9 (0.0-12.0) % Eosinophils (Manual) 1 (0.00-3.0) % Basophils # 0.02 (0-0.4) Metamyelocytes 1 % Myelocytes 3 % Differential Comment ABNORMAL Hypersegmented Polys 2+ Toxic Granulation 1+ Platelet Estimate NORMAL (NORMAL) Hypochromasia 1+ Anisocytosis 1+ Sodium 140 (136-145) mEq/L Potassium 4.2 (3.5-5.1) mEq/L Chloride 101 (98-107) mEq/L Carbon Dioxide 31.5 (21-32) mEq/L Anion Gap 11.6 (5-15) MEQ/L BUN 21 H (9-20) mg/dL Creatinine 1.02 (0.55-1.30) mg/dl Estimated GFR 59 ML/MIN Glucose 112 H (70-110) MG/DL Lactic Acid (0.4-2.0) Calcium 9.0 (8.5-10.1) mg/dL Total Bilirubin 0.20 (0.2-1.0) mg/dL AST 13 L (15-37) U/L ALT 17 (12-78) U/L Alkaline Phosphatase 116 (46-116) U/L Troponin I < 0.017 (0.000-0.056) ng/ml NT-Pro-B Natriuret Pep 557 H (0-125) pg/ml Serum Total Protein 7.0 (6.4-8.2) gm/dL Albumin 3.2 L (3.4-5.0) g/dL 10/16/16 Range/Units 10:21 WBC (4.0-10.5) K/mm3 RBC (4.1-5.4) M/mm3 Hgb (12.0-16.0) gm/dl Hct (35-47) % MCV (78-100) fl MCH (26-32) pg MCHC (32-36) g/dl RDW (11.5-14.0) % Plt Count (150-450) K/mm3 MPV (6-9.5) fl Gran % (36.0-66.0) % Lymphocytes % (24.0-44.0) % Monocytes % (0.0-12.0) % Eosinophils % (0.00-5.0) % Basophils % (0.0-0.4) % Segmented Neutrophils (36.0-66.0) % Band Neutrophils (0.0-2.0) % Lymphocytes (Manual) (24-44) % Monocytes (Manual) (0.0-12.0) % Eosinophils (Manual) (0.00-3.0) % Basophils # (0-0.4) Metamyelocytes % Myelocytes % Differential Comment Hypersegmented Polys Toxic Granulation Platelet Estimate (NORMAL) Hypochromasia Anisocytosis Sodium (136-145) mEq/L Potassium (3.5-5.1) mEq/L Chloride (98-107) mEq/L Carbon Dioxide (21-32) mEq/L Anion Gap (5-15) MEQ/L BUN (9-20) mg/dL Creatinine (0.55-1.30) mg/dl Estimated GFR ML/MIN Glucose (70-110) MG/DL Lactic Acid 2.9 H (0.4-2.0) Calcium (8.5-10.1) mg/dL Total Bilirubin (0.2-1.0) mg/dL AST (15-37) U/L ALT (12-78) U/L Alkaline Phosphatase (46-116) U/L Troponin I (0.000-0.056) ng/ml NT-Pro-B Natriuret Pep (0-125) pg/ml Serum Total Protein (6.4-8.2) gm/dL Albumin (3.4-5.0) g/dL - Progress Progress: improved Progress Note: 10/16/16 11:55 After Flexeril 10 mg by mouth, the patient is feeling better. I spoke with the patient's primary care physician, Dr. Bean, who recommends setting up an appointment for a back brace with [facility] in [place]. Discussed with : Vikas Counseled pt/family regarding: diagnosis, need for follow-up, rad results - Departure Time of Disposition: 11:58 Departure Disposition: Home Clinical Impression: Back fracture Condition: Stable Critical Care Time: No Referrals: JETT BEAN [Primary Care Provider] - Additional Instructions: You have a worsening compression fracture of vertebrae T9 that is causing back pain. You were given Flexeril 10 mg in the ER with improvement. I spoke with your primary care doctor, Dr. Bean, who wants you to go to the [facility] ortho clinic for a back brace. Take Flexeril every 8 hours as needed. Follow-up in one to 2 days. Prescriptions: Cyclobenzaprine HCl [Flexeril] 10 mg PO Q8H PRN PRN #12 tablet PRN Reason: Pain
[2016-10-16] MEDS ORDERED: Cyclobenzaprine 10 MG ONE (10:31)
[2016-10-16] MEDS ORDERED: TORAdol 30 mg Injection ONE (10:31)
[2016-10-16 10:48] LABS: BASOPHIL % 0.1 % (0.0-0.4); Eosinophil % 0.4 % (0.00-5.0); Granulocytes % 80.8 % (36.0-66.0); Mean Cell Volume 95.9 fl (78-100); Mean Platelet Volume 9.2 fl (6-9.5); Monocytes % 8.7 % (0.0-12.0); Platelet Count 394 K/mm3 (150-450); Red Cell Distribution Width 17.7 % (11.5-14.0); White Blood Count 22.7 K/mm3 (4.0-10.5)
[2016-10-16 10:49] LABS: Mean Corpuscular Hemoglobin 28.2 pg (26-32)
[2016-10-16 10:52] LABS: Lactic Acid 2.9 (0.4-2.0)
--- NOTE | 2016-10-16 11:14 | XRAY ---
Indication: Chest pain. Comparison: October 08, 2016. PA/lateral chest again hyperinflated and clear with a few incidental calcified granulomas. Heart is not enlarged. Vascularity normal. Bony thorax intact again with osteopenia and degenerative changes. CT proven T9 compression fracture appears worsened with approximately 75% height loss. Impression: Nonacute hyperinflated chest with again evidence for old granulomatous disease. Worsening T9 compression deformity.
[2016-10-16 11:19] LABS: BAND 4 % (0.0-2.0); Eosinophil 1 % (0.00-3.0); Hypersegmented Polys 2+; Metamyelocyte 1 %; Myelocyte 3 %; Platelet Estimate NORMAL (NORMAL); Total Cells Counted 100
[2016-10-16 11:21] LABS: Toxic Granulation 1+
[2016-10-16 11:22] LABS: ALBUMIN 3.2 g/dL (3.4-5.0); ANION GAP 11.6 MEQ/L (5-15); ANISOCYTOSIS 1+; BILIRUBIN,TOTAL 0.2 mg/dL (0.2-1.0); Carbon Dioxide 31.5 mEq/L (21-32); Hypochromia 1+; Potassium 4.2 mEq/L (3.5-5.1)
[2016-10-16 11:34] VITALS: BP 125/57; PULSE 91
[2016-10-16 12:01] VITALS: O2SAT 97
== END 2016-10-16 12:24 | disposition home or self-care (01) ==
LOC: ED 09:45
DX: S22.078A Other fracture of T9-T10 vertebra, initial encounter for closed fracture (principal); J44.9 Chronic obstructive pulmonary disease, unspecified; E03.9 Hypothyroidism, unspecified; Z79.899 Other long term (current) drug therapy; Z79.891 Long term (current) use of opiate analgesic
CPT/HCPCS: 36000; 36415; 71020; 80053; 83605; 83880; 84484; 85025; 93005; 93041; 96374; 99284; J1885; A9270-GY

== ENCOUNTER 2016-10-18 03:08 | Observation (INO) | payer OTHER ==
[2016-10-18] MEDS ORDERED: solu-MEDROL 125 MG IV ONE (03:10)
[2016-10-18] MEDS ORDERED: solu-MEDROL 125 MG ONE (03:18)
[2016-10-18] MEDS: Sodium Chloride 0.9% 1000 ML 1,000 ML IV SCH ×2 (03:19→22:57)
--- NOTE | 2016-10-18 03:27 | ERPHSYRPT ---
- History of Present Illness Source: patient, EMS Exam Limitations: clinical condition Physician History: Patient with increasing shortness of breath since last evening cough nonproductive lost a history of asthma or COPD currently still smokes. Home oxygen as necessary. Home nebulizers. 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 Patient with recent fractured vertebra and has fentanyl patch. No chest pain. Patient was recently hospitalized and was seen in the ER and discharged couple days ago. Question of fever and chills.patient discharge 88 with compression fracture T9. Timing/Duration: today, yesterday, worse Activities at Onset: none Severity of Dyspnea-Max: severe Severity of Dyspnea-Current: severe Possible Cause: frequent episodes Modifying Factors: Improves With: activity, coughing, deep breath, exertion, lying down, oxygen, rest Associated Symptoms: cough (nonproductive), edema (slight increased lower extremities recently ), wheezing, No muscle spasms feet, No muscle spasms hands , No painful breathing, No productive cough, No sweating, No tightness, No tingling face, No tingling hands International travel in last 2 weeks: No Allergies/Adverse Reactions: aspirin [From Aspirin Regimen Cheri/Calcium] Adverse Reaction (Mild, Verified 03:25) Nausea calcium carbonate [From Aspirin Regimen Cheri/Calcium] Adverse Reaction (Mild, Verified 10/18/16 03:25) Nausea Home Medications: Albuterol/Ipratropium 3ml Neb* [DUONEB 0.5-3 MG/3 ml Neb] 3 ml IH QID [History] Amitriptyline HCl 150 mg PO HS 07/27/16 [History] Bisacodyl 5 mg [Dulcolax 5 mg] 5 mg PO DAILY PRN PRN 07/27/16 [History] Escitalopram Oxalate [Lexapro] 20 mg PO DAILY 07/27/16 [History] Famotidine 20 mg [Pepcid 20 MG] 20 mg PO HS 07/27/16 [History] Fentanyl 100 Mcg Patch [Duragesic 100 MCG Patch] 100 mcg TOP Q3D 07/27/16 [History] Fentanyl [Duragesic 12MCG Patch] 12 mcg TOP Q3D 07/27/16 [History] Fluticasone/Salmeterol 230/21 [Advair Hfa 230/21 Mcg COMMON CANISTER*] 2 puff IH BIDRT 07/27/16 [History] Hydrocodone Bit/Acetaminophen [[place] 10-325 Tablet] 1 each PO QID PRN PRN [History] Loratadine 10 mg [Claritin 10 mg] 10 mg PO DAILY 07/27/16 [History] Olanzapine [Zyprexa] 5 mg PO DAILY 07/27/16 [History] PANTOPRAZOLE 40 mg Tablet [Protonix 40MG Tablet] 40 mg PO DAILY 07/27/16 [ History] Potassium Chloride 10 Meq Tab* [Klor Con 10 MEQ] 10 meq PO BID 07/27/16 [ History] Pramipexole Di-HCl [Mirapex] 1 - 2 tablet PO HS PRN PRN 07/27/16 [History] Prednisone 10 mg [Deltasone 10 mg] 10 mg PO DAILY 07/27/16 [History] Pregabalin [Lyrica 100Mg] 200 mg PO BID 07/27/16 [History] Primidone 50 MG [Mysoline 50Mg] 50 mg PO DAILY 07/27/16 [History] Primidone 50 MG [Mysoline 50Mg] 100 mg PO HS 07/27/16 [History] Promethazine HCl 12.5 mg PO QID PRN 07/27/16 [History] Roflumilast [Daliresp] 500 mcg PO HS 07/27/16 [History] Tizanidine HCl 2 mg PO DAILY 07/27/16 [History] Trazodone HCl 50 mg [Desyrel 50 mg] 50 mg PO HS 07/27/16 [History] Clonazepam 1 mg PO BID 09/05/16 [History] Loperamide HCl 2 mg [Imodium 2 mg] 2 mg PO Q4HPRN PRN 09/05/16 [History] Naproxen [EC-Naprosyn] 500 mg PO BID 09/05/16 [History] Ondansetron [Zofran Odt] 4 mg PO Q6HPRN PRN 09/05/16 [History] Zonisamide [Zonegran] 100 mg PO BID 09/05/16 [History] Diclofenac Sodium Gel [Voltaren GEL] 1 applic TP QID PRN 10/07/16 [History ] Ipratropium [place] Hfa [Atrovent HFA MDI] 17 gm IH QID 10/07/16 [History] Hx Tetanus, Diphtheria Vaccination/Date Given: Yes Hx Influenza Vaccination/Date Given: No Hx Pneumococcal Vaccination/Date Given: No - Review of Systems Constitutional: Fever, Chills, Malaise, Weakness Eyes: No Symptoms Ears, Nose, & Throat: No Symptoms Respiratory: Cough, Dyspnea, Dyspnea on Exertion (PATINO), Wheezing Cardiac: No Symptoms Abdominal/Gastrointestinal: No Symptoms Genitourinary Symptoms: No Symptoms Musculoskeletal: Other (fractured vertebra as noted as well fracture right foot with cast in place) Skin: No Symptoms Neurological: No Symptoms Psychological: No Symptoms Endocrine: No Symptoms Hematologic/Lymphatic: No Symptoms Immunological/Allergic: No Symptoms - Past Medical History Pertinent Past Medical History: Yes Neurological History: Dementia, Migraines ENT History: No Pertinent History Cardiac History: No Pertinent History Respiratory History: COPD Endocrine Medical History: Hypothyroidism Musculoskeletal History: Fibromyalgia, Osteoarthritis, Osteoporosis, Other ( chronic pain) GI Medical History: No Pertinent History, GERD, Hernia History: No Pertinent History Psycho-Social History: Anxiety, Bipolar, Depression, Eating Disorders, Panic Disorder Female Reproductive Disorders: Abnormal Uterine Bleeding Other Medical History: NEURO CHANGES TO LEGS AND ARMS - Past Surgical History Past Surgical History: Yes Neuro Surgical History: No Pertinent History Cardiac: No Pertinent History Respiratory: No Pertinent History Gastrointestinal: No Pertinent History Genitourinary: No Pertinent History Musculoskeletal: No Pertinent History Female Surgical History: Hysterectomy, Tubal Ligation Other Surgical History: scope on lungs,bx done"cleaned my lungs",jaw screws place -had rib bone placed to jaw,fatty tumors removed from back and right hand, right hand nodule removed in september 2011 - Social History Smoking Status: Current every day smoker How long have you smoked: 50 Exposure to second hand smoke: Yes Alcohol Use: None Drug Use: none Patient Lives Alone: No Significant Family History: no pertinent family hx - Female History Hx Now: No - Nursing Vital Signs Nursing Vital Signs: Initial Vital Signs O2 Sat by Pulse Oximetry 98 10/18/16 03:16 Pain Scale Pain Intensity 4 - Physical Exam General Appearance: mild distress, alert, anxiety Eye Exam: PERRL/EOMI Ears, Nose, Throat Exam: hearing grossly normal Neck Exam: normal inspection, non-tender Respiratory Exam: airway intact, diminished breath sounds, prolonged expirations , wheezing (very mild distant end expiratory) Cardiovascular/Chest Exam: normal heart sounds, regular rate/rhythm, No murmur Abdominal/Gastrointestinal Exam: soft, normal bowel sounds, No tenderness, No distention, No mass, No guarding Rectal Exam: deferred Extremity Exam: non-tender, no calf tenderness, pedal edema (mild bilateral with short leg cast right), No calf tenderness Neurologic Exam: alert, oriented x 3, cooperative, hose mender II-XII nml as tested Skin Exam: normal color, warm, dry, rash Lymphatic Exam: No adenopathy SpO2 Interpretation: normal (she is O2 okay), O2 applied ( okaythe) SpO2: 98 Oxygen Delivery: Nasal Cannula - Course Nursing assessment & vital signs reviewed: Yes EKG Interpreted by Me: RATE (91), Sinus Rhythm, NORMAL AXIS, NORMAL INTERVALS, NORMAL QRS, Non-specific ST Changes (aVL), Other (NO ACUTE CHANGES AND NO SIGNIFICANT CHANGES TO EKG 8817) - Radiology Exams Chest X-ray Interpretation: Interpreted by me, Other (NO ACUTE CHANGES) Ordered Tests: Active Orders 24 hr Category Date Time Status Cashier STAT Care 10/18/16 03:10 Active EKG-ER Only STAT Care 10/18/16 03:10 Active IV Insertion STAT Care 10/18/16 03:10 Active Oxygen-ED Only NASAL CANNULA 3 lpm Care 10/18/16 03:24 Active Oxygen-ED Only NASAL CANNULA 6 lpm Care 10/18/16 03:10 Inactive Pulse Oximetry (ED) STAT Care 10/18/16 03:10 Active CHEST 1 VIEW (PORTABLE) Stat Exams 10/18/16 03:11 Taken CBC W DIFF Stat Lab 10/18/16 03:40 Completed CMP Stat Lab 10/18/16 03:40 Completed D-DIMER QUANTITATION Stat Lab 10/18/16 03:40 Completed MAGNESIUM Stat Lab 10/18/16 03:40 Completed Manual Differential NC Stat Lab 10/18/16 03:40 Completed TROPONIN Q3H Lab 10/18/16 03:40 Completed TROPONIN Q3H Lab 10/18/16 06:15 Ordered TROPONIN Q3H Lab 10/18/16 09:15 Ordered TROPONIN Q3H Lab 10/18/16 12:15 Ordered TROPONIN Q3H Lab 10/18/16 15:15 Ordered VENOUS BLOOD GAS Stat Lab 10/18/16 03:10 Completed Transfer Order Routine Transfer 10/18/16 04:50 Ordered Medication Summary Generic Name Dose Route Start Last Admin Trade Name Freq PRN Reason Stop Dose Admin Sodium Chloride 1,000 mls @ 100 mls/hr 10/18/16 03:15 10/18/16 03:19 Sodium Chloride 0.9% 1000 Ml IV 11/17/16 03:14 100 mls/hr .Q10H ALFIE Administration Discontinued Medications Generic Name Dose Route Start Last Admin Trade Name Freq PRN Reason Stop Dose Admin Enoxaparin Sodium 70 mg 10/18/16 04:44 10/18/16 04:53 Enoxaparin Sodium SQ 10/18/16 04:45 70 mg STAT ONE Administration Enoxaparin Sodium Confirm 10/18/16 04:50 Enoxaparin Sodium Administered 10/18/16 04:51 Dose 80 mg SQ .STK-MED ONE Methylprednisolone Sodium Succinate 125 mg 10/18/16 03:10 10/18/16 03:20 Solu-Medrol 125 Mg IV 10/18/16 03:11 125 mg STAT ONE Administration Methylprednisolone Sodium Succinate Confirm 10/18/16 03:18 Solu-Medrol 125 Mg Administered 10/18/16 03:19 Dose 125 mg .ROUTE .STK-MED ONE Lab/Rad Data: Laboratory Result Diagrams 10/18/16 03:40 10/18/16 03:40 Laboratory Results 10/18/16 10/18/16 10/18/16 Range/Units 03:40 03:40 03:40 WBC (4.0-10.5) K/mm3 RBC (4.1-5.4) M/mm3 Hgb (12.0-16.0) gm/dl Hct (35-47) % MCV (78-100) fl MCH (26-32) pg MCHC (32-36) g/dl RDW (11.5-14.0) % Plt Count (150-450) K/mm3 MPV (6-9.5) fl Segmented Neutrophils (36.0-66.0) % Lymphocytes (Manual) (24-44) % Monocytes (Manual) (0.0-12.0) % Differential Comment Atypical Lymphocytes % Platelet Estimate (NORMAL) D-Dimer 1112 H* (0-500) ng/mL VBG pH (7.32-7.42) VBG pCO2 at Pat Temp (42-55) mm/Hg VBG pO2 at Pat Temp (25-40) mm/Hg VBG HCO3 (22-28) meq/L VBG O2 Sat (Noman) (95-100) VBG Base Excess (-2.0-2.0) VBG Hemoglobin VBG Carboxyhemoglobin (0.0-6.9) % T HGB POC Potassium (3.5-5.1) Sodium 138 (136-145) mEq/L Potassium 4.2 (3.5-5.1) mEq/L Chloride 102 (98-107) mEq/L Carbon Dioxide 29.0 (21-32) mEq/L Anion Gap 11.2 (5-15) MEQ/L BUN 27 H (9-20) mg/dL Creatinine 0.97 (0.55-1.30) mg/dl Estimated GFR > 60 ML/MIN Glucose 88 (70-110) MG/DL Calcium 8.7 (8.5-10.1) mg/dL Magnesium 2.0 (1.8-2.4) mg/dL Total Bilirubin 0.20 (0.2-1.0) mg/dL AST 9 L (15-37) U/L ALT 15 (12-78) U/L Alkaline Phosphatase 107 (46-116) U/L Troponin I < 0.017 (0.000-0.056) ng/ml Serum Total Protein 6.7 (6.4-8.2) gm/dL Albumin 3.1 L (3.4-5.0) g/dL 10/18/16 10/18/16 Range/Units 03:40 03:10 WBC 20.0 H (4.0-10.5) K/mm3 RBC 3.82 L (4.1-5.4) M/mm3 Hgb 10.9 L (12.0-16.0) gm/dl Hct 35.6 (35-47) % MCV 93.2 (78-100) fl MCH 28.5 (26-32) pg MCHC 30.6 L (32-36) g/dl RDW 17.9 H (11.5-14.0) % Plt Count 379 (150-450) K/mm3 MPV 9.2 (6-9.5) fl Segmented Neutrophils 67 H (36.0-66.0) % Lymphocytes (Manual) 22 L (24-44) % Monocytes (Manual) 9 (0.0-12.0) % Differential Comment NORMAL Atypical Lymphocytes 2 % Platelet Estimate NORMAL (NORMAL) D-Dimer (0-500) ng/mL VBG pH 7.36 (7.32-7.42) VBG pCO2 at Pat Temp 55 (42-55) mm/Hg VBG pO2 at Pat Temp 24 L (25-40) mm/Hg VBG HCO3 31.1 H* (22-28) meq/L VBG O2 Sat (Noman) 54.5 L (95-100) VBG Base Excess 4.5 H (-2.0-2.0) VBG Hemoglobin 11.0 VBG Carboxyhemoglobin 3.5 (0.0-6.9) % T HGB POC Potassium 4.2 (3.5-5.1) Sodium (136-145) mEq/L Potassium (3.5-5.1) mEq/L Chloride (98-107) mEq/L Carbon Dioxide (21-32) mEq/L Anion Gap (5-15) MEQ/L BUN (9-20) mg/dL Creatinine (0.55-1.30) mg/dl Estimated GFR ML/MIN Glucose (70-110) MG/DL Calcium (8.5-10.1) mg/dL Magnesium (1.8-2.4) mg/dL Total Bilirubin (0.2-1.0) mg/dL AST (15-37) U/L ALT (12-78) U/L Alkaline Phosphatase (46-116) U/L Troponin I (0.000-0.056) ng/ml Serum Total Protein (6.4-8.2) gm/dL Albumin (3.4-5.0) g/dL - Progress Progress: improved Air Movement: poor Progress Note: 10/18/16 04:45Patient continues to be very wheezy and short of breath. Markedly increased d-dimer was noted however patient unable to lay supine for adequate CT to rule out PE therefore will be treated with Lovenox at this time and left for further evaluation by Dr. Davila is patient is accepted by Dr. Hugo Olivia information systems coordinator. This is in agreement with patient and family. Blood Culture(s) Obtained: No Antibiotics given: No Will see patient in: hospital (observation) Counseled pt/family regarding: lab results, diagnosis, rad results - Departure Time of Disposition: 04:47 Departure Disposition: Observation Clinical Impression: Acute exacerbation of chronic obstructive airways disease, Elevated d-dimer, Intractable back pain Back fracture Qualifiers: Encounter type: subsequent encounter Fracture of vertebra location: thoracic Thoracic vertebra fracture level: T9 Fracture type: closed Fracture morphology: unspecified fracture morphology Fracture healing: with delayed healing Qualified Code(s): S22.079G - Unspecified fracture of T9-T10 vertebra, subsequent encounter for fracture with delayed healing Condition: Fair Critical Care Time: No Referrals: JETT RUSSELL [Primary Care Provider] -
[2016-10-18 03:45] LABS: VBG BASE EXCESS 4.5 (-2.0-2.0); VBG CARBOXYHEMOGLOBIN 3.5 % T HGB (0.0-6.9); VBG HCO3- 31.1 meq/L (22-28); VBG O2 SATURATION 54.5 (95-100); VBG POTASSIUM 4.2 (3.5-5.1); VBG pH 7.36 (7.32-7.42)
[2016-10-18 03:45] LABS: Mean Cell Volume 93.2 fl (78-100); Mean Corpuscular Hemoglobin 28.5 pg (26-32); Mean Platelet Volume 9.2 fl (6-9.5); Platelet Count 379 K/mm3 (150-450); Red Blood Count 3.82 M/mm3 (4.1-5.4); Red Cell Distribution Width 17.9 % (11.5-14.0)
[2016-10-18 04:06] LABS: ALBUMIN 3.1 g/dL (3.4-5.0); ALKALINE PHOSPHATASE 107 U/L (46-116); ANION GAP 11.2 MEQ/L (5-15); BLOOD UREA NITROGEN 27 mg/dL (9-20); CHLORIDE 102 mEq/L (98-107); Glucose 88 MG/DL (70-110); Potassium 4.2 mEq/L (3.5-5.1); SGOT/AST 9 U/L (15-37); SGPT/ALT 15 U/L (12-78); SODIUM 138 mEq/L (136-145); Total Protein 6.7 gm/dL (6.4-8.2)
[2016-10-18 04:44] LABS: ATYPICAL LYMPHS 2 %; Platelet Estimate NORMAL (NORMAL); Total Cells Counted 100
[2016-10-18] MEDS ORDERED: ENOXAPARIN SODIUM SQ ONE ×2 (04:44→04:50)
[2016-10-18] MEDS: DUONEB 0.5-3 MG/3 ml Neb IH SCH ×5 (06:49→23:08)
[2016-10-18] MEDS: Advair Hfa 230/21 Mcg COMMON CANISTER IH SCH ×2 (06:49→19:04)
--- NOTE | 2016-10-18 08:29 | PCM.HP ---
History of Present Illness - Chief Complaint History of Present Illness: is a 61 year old female who saw me in office yesterday. We sent her to [facility] for a back brace yesterday, which she was able to get, but it was too heavy and she started having chest heaviness followed by nausea so she called the ambulance. She was in the ER this week and found to have new T9 fracture and is having acute exacerbation of her back pain. Her pain is currently 9/10. - Review of Systems Cardiac: Chest Pain Musculoskeletal: Arthralgias, Back Pain, Joint Swelling Skin: Other (scattered bruising since last hospital visit) Neurological: Tremors Psychological: Anxiety, Depression All Other Systems: Reviewed and Negative Medications & Allergies Home Medications: Home Medication List Albuterol/Ipratropium 3ml Neb* [DUONEB 0.5-3 MG/3 ml Neb] 3 ml IH QID [History Confirmed 10/16/16] Amitriptyline HCl 150 mg PO HS 07/27/16 [History Confirmed 10/16/16] Bisacodyl 5 mg [Dulcolax 5 mg] 5 mg PO DAILY PRN PRN 07/27/16 [History Confirmed 10/16/16] Escitalopram Oxalate [Lexapro] 20 mg PO DAILY 07/27/16 [History Confirmed ] Famotidine 20 mg [Pepcid 20 MG] 20 mg PO HS 07/27/16 [History Confirmed ] Fentanyl 100 Mcg Patch [Duragesic 100 MCG Patch] 100 mcg TOP Q3D 07/27/16 [History Confirmed 10/16/16] Fentanyl [Duragesic 12MCG Patch] 12 mcg TOP Q3D 07/27/16 [History Confirmed 10/25] Fluticasone/Salmeterol 230/21 [Advair Hfa 230/21 Mcg COMMON CANISTER*] 2 puff IH BIDRT 07/27/16 [History Confirmed 10/16/16] Hydrocodone Bit/Acetaminophen [[place] 10-325 Tablet] 1 each PO QID PRN PRN [History Confirmed 10/16/16] Loratadine 10 mg [Claritin 10 mg] 10 mg PO DAILY 07/27/16 [History Confirmed 10/16/16] Olanzapine [Zyprexa] 5 mg PO DAILY 07/27/16 [History Confirmed 10/16/16] PANTOPRAZOLE 40 mg Tablet [Protonix 40MG Tablet] 40 mg PO DAILY 07/27/16 [ History Confirmed 10/16/16] Potassium Chloride 10 Meq Tab* [Klor Con 10 MEQ] 10 meq PO BID 07/27/16 [ History Confirmed 10/16/16] Pramipexole Di-HCl [Mirapex] 1 - 2 tablet PO HS PRN PRN 07/27/16 [History Confirmed 10/16/16] Prednisone 10 mg [Deltasone 10 mg] 10 mg PO DAILY 07/27/16 [History Confirmed 10/16/16] Pregabalin [Lyrica 100Mg] 200 mg PO BID 07/27/16 [History Confirmed 10/16/16] Primidone 50 MG [Mysoline 50Mg] 50 mg PO DAILY 07/27/16 [History Confirmed 10/16/16] Primidone 50 MG [Mysoline 50Mg] 100 mg PO HS 07/27/16 [History Confirmed 10/25] Promethazine HCl 12.5 mg PO QID PRN 07/27/16 [History Confirmed 10/16/16] Roflumilast [Daliresp] 500 mcg PO HS 07/27/16 [History Confirmed 10/16/16] Tizanidine HCl 2 mg PO DAILY 07/27/16 [History Confirmed 10/16/16] Trazodone HCl 50 mg [Desyrel 50 mg] 50 mg PO HS 07/27/16 [History Confirmed 10/16/16] Clonazepam 1 mg PO BID 09/05/16 [History Confirmed 10/16/16] Loperamide HCl 2 mg [Imodium 2 mg] 2 mg PO Q4HPRN PRN 09/05/16 [History Confirmed 10/16/16] Naproxen [EC-Naprosyn] 500 mg PO BID 09/05/16 [History Confirmed 10/16/16] Ondansetron [Zofran Odt] 4 mg PO Q6HPRN PRN 09/05/16 [History Confirmed 10/07/16 ] Zonisamide [Zonegran] 100 mg PO BID 09/05/16 [History Confirmed 10/16/16] Diclofenac Sodium Gel [Voltaren GEL] 1 applic TP QID PRN 10/07/16 [ History Confirmed 10/16/16] Ipratropium [place] Hfa [Atrovent HFA MDI] 17 gm IH QID 10/07/16 [History Confirmed 10/16/16] Cefdinir 300 mg PO BID #24 capsule 10/10/16 [Rx Confirmed 10/16/16] Prednisone 20 mg [Deltasone 20 mg] 20 mg PO DAILY #17 tablet 10/10/16 [Rx Confirmed 10/16/16] Cyclobenzaprine HCl [Flexeril] 10 mg PO Q8H PRN PRN #12 tablet 10/16/16 [Rx] Allergies/Adverse Reactions: Allergies Allergy/AdvReac Type Severity Reaction Status Date / Time aspirin AdvReac Mild Nausea Verified 10/18/16 03:25 [From Aspirin Regimen Cheri/Calcium] calcium carbonate AdvReac Mild Nausea Verified 10/18/16 03:25 [From Aspirin Regimen Cheri/Calcium] - Past Medical History Past Medical History: Yes Neurological History: Dementia, Migraines ENT History: No Pertinent History Cardiac History: No Pertinent History Respiratory History: COPD Endocrine Medical History: Hypothyroidism Musculoskelatal History: Fibromyalgia, Osteoarthritis, Osteoporosis, Other GI Medical History: No Pertinent History, GERD, Hernia History: No Pertinent History Pyscho-Social History: Anxiety, Bipolar, Depression, Eating Disorders, Panic Disorder Reproductive Disorders: Abnormal Uterine Bleeding Comment: NEURO CHANGES TO LEGS AND ARMS - Female History Hx Last Menstrual Period: na - Past Surgical History Past Surgical History: Yes Neuro Surgical History: No Pertinent History Cardiac History: No Pertinent History Respiratory Surgery: No Pertinent History GI Surgical History: No Pertinent History Genitourinary Surgical Hx: No Pertinent History Musculskeletal Surgical Hx: No Pertinent History Female Surgical History: Hysterectomy, Tubal Ligation Other Surgical History: scope on lungs,bx done"cleaned my lungs",jaw screws place -had rib bone placed to jaw,fatty tumors removed from back and right hand, right hand nodule removed in september 2011 - Social History Smoking Status: Current every day smoker How long have you smoked: 50 Exposure to second hand smoke: Yes Alcohol: None Drug Use: none Significant Family History: no pertinent family hx - Physical Exam Vital Signs: Vital Signs - 24 hr Pulse Resp Pulse Ox 10/18/16 06:54 95 H 16 94 L 10/18/16 06:00 93 L General Appearance: mild distress Neurologic Exam: alert, oriented x 3, cooperative Eye Exam: eyes nml inspection Neck Exam: normal inspection, supple Respiratory Exam: lungs clear, diminished breath sounds, wheezing (mild scattered exp wheezing), No crackles/rales, No rhonchi Cardiovascular Exam: regular rate/rhythm, normal heart sounds, No murmur Gastrointestinal/Abdomen Exam: soft, normal bowel sounds, tenderness ( generalized), distention, No mass, No guarding, No rebound Results - Labs Lab/Micro Results: Lab Results-Last 24 Hours 10/18/16 Range/Units 06:30 Troponin I < 0.017 (0.000-0.056) ng/ml - Other Procedures and Tests Respiratory Therapy 10/18/16 05:47 Respiratory MDI BID 10/18/16 06:54 Oxygen NASAL CANNULA 2.5 lpm Assessment/Plan (1) Intractable back pain Current Visit: Yes Status: Acute Assessment & Plan: Will increase pain meds as needed. Code(s): M54.9 - DORSALGIA, UNSPECIFIED (2) Back fracture Current Visit: Yes Status: Acute Qualifiers: Encounter type: subsequent encounter Fracture of vertebra location: thoracic Thoracic vertebra fracture level: T9 Fracture type: closed Fracture morphology: unspecified fracture morphology Fracture healing: with delayed healing Qualified Code(s): S22.079G - Unspecified fracture of T9-T10 vertebra, subsequent encounter for fracture with delayed healing Assessment & Plan: Will discuss with ortho today Code(s): [id number] - (3) Elevated d-dimer Current Visit: Yes Status: Acute Assessment & Plan: Present at her last admission - with her COPD and poor health I imagine it to be chronically elevated. CTA chest negative for PE at last admission. Code(s): R79.89 - OTHER SPECIFIED ABNORMAL FINDINGS OF BLOOD CHEMISTRY (4) Lewy body dementia Current Visit: No Status: Chronic Qualifiers: Code(s): G31.83 - DEMENTIA WITH LEWY BODIES; F02.80 - DEMENTIA IN OTH DISEASES CLASSD ELSWHR W/O BEHAVRL DISTURB (5) Osteonecrosis Current Visit: No Status: Chronic Assessment & Plan: On chronic pain meds. Until recently I did home visits on this patient. Yesterday I did tell her I would need to send her to pain management (referring to Dr. Eng in [place]). Code(s): M87.9 - OSTEONECROSIS, UNSPECIFIED (6) Poor social situation Current Visit: No Status: Chronic Code(s): Z65.9 - PROBLEM RELATED TO UNSPECIFIED PSYCHOSOCIAL CIRCUMSTANCES (7) Tobacco abuse Current Visit: No Status: Chronic Code(s): Z72.0 - TOBACCO USE (8) Tremor Current Visit: No Status: Chronic Code(s): R25.1 - TREMOR, UNSPECIFIED (9) Acute exacerbation of chronic obstructive airways disease Current Visit: Yes Status: Acute Assessment & Plan: Unsure if she completed the last course of antibiotics; on po doxycycline here. Code(s): J44.1 - CHRONIC OBSTRUCTIVE PULMONARY DISEASE W (ACUTE) EXACERBATION
[2016-10-18] MEDS: Vibramycin 100 MG PO SCH ×2 (08:53→20:52)
[2016-10-18] MEDS: DILAUDID 2 MG INJECTION IV PRN ×3 (09:44→20:47)
[2016-10-18] MEDS ORDERED: Klor Con 10 MEQ PO ONE (10:23)
[2016-10-18] MEDS ORDERED: Protonix 40MG Tablet ONE (10:23)
[2016-10-18] MEDS ORDERED: CLARITIN 10 MG ONE (10:23)
[2016-10-18] MEDS ORDERED: Lexapro 10 MG ONE (10:24)
[2016-10-18] MEDS: Klor Con 10 MEQ PO SCH ×2 (10:30→20:52)
[2016-10-18] MEDS: zyPREXA 5MG TABLET PO SCH (10:30)
[2016-10-18] MEDS: Protonix 40MG Tablet PO SCH (10:30)
[2016-10-18] MEDS: Naprosyn 500 MG PO SCH ×2 (10:30→20:52)
[2016-10-18] MEDS: Lexapro 10 MG PO SCH (10:30)
[2016-10-18] MEDS: MYSOLINE 50MG PO SCH ×2 (10:30→22:54)
[2016-10-18] MEDS: Klonopin 0.5 MG PO SCH ×2 (10:30→22:54)
[2016-10-18] MEDS: CLARITIN 10 MG PO SCH (10:30)
[2016-10-18] MEDS: LYRICA 100MG PO SCH ×2 (10:30→22:54)
--- NOTE | 2016-10-18 11:39 | XRAY ---
Exam: AP portable chest film from 0328 hours on 10/18/2016. Comparison: Two-view chest from 10/16/2016. Indication: Shortness of breath. Findings: The film was obtained in a lordotic projection. External tubing overlies the left upper lobe. The transverse heart size appears within normal limits. A few small bilateral perihilar calcifications are seen. One calcification is seen within the AP window on the left. The lungs are adequately expanded. No infiltrates, vascular congestion, pneumothorax, or pleural fluid is seen. Some degenerative changes are seen within both shoulder joints. There are some radiolucent changes within the right humeral head which may be due to osteonecrosis. Correlate clinically. Impression: 1. No acute cardiopulmonary disease is seen. The findings are unchanged from 10/16/2016.
[2016-10-18] MEDS ORDERED: IMODIUM 2 MG PO PRN (11:58)
[2016-10-18] MEDS ORDERED: NON-FORMULARY ITEM (Cyclobenzaprine Hcl [Flexeril] 10 MG) PO PRN (11:58)
[2016-10-18] MEDS ORDERED: DULCOLAX 5 MG PO PRN (11:58)
[2016-10-18] MEDS ORDERED: NON-FORMULARY ITEM (Promethazine Hcl [Promethazine Hcl] 12.5 MG) PO PRN (11:58)
[2016-10-18] MEDS ORDERED: PRAMIPEXOLE DI HCL PO PRN (11:58)
[2016-10-18] MEDS ORDERED: Voltaren GEL TP PRN (12:00)
[2016-10-18] MEDS ORDERED: DURAGESIC TOP SCH (12:00)
[2016-10-18] MEDS ORDERED: Cyclobenzaprine 10 MG PO PRN (12:13)
[2016-10-18] MEDS ORDERED: Mirapex 0.5 MG Tablet PO PRN (12:16)
[2016-10-18] MEDS ORDERED: PHENERGAN 25 MG PO PRN (12:17)
[2016-10-18] MEDS ORDERED: MEDICATION INTERVENTION MC SCH (12:45)
[2016-10-18] MEDS ORDERED: DUONEB 0.5-3 MG/3 ml Neb IH SCH (13:00)
[2016-10-18] MEDS ORDERED: Advair Hfa 230/21 Mcg COMMON CANISTER IH SCH (19:00)
[2016-10-18] MEDS: DALIRESP PO SCH (20:52)
[2016-10-18] MEDS: Pepcid 20 MG PO SCH (20:52)
[2016-10-18] MEDS ORDERED: CLONAZEPAM 1 MG PO SCH (22:00)
[2016-10-18] MEDS ORDERED: NAPROXEN 500 MG PO SCH (22:00)
[2016-10-18] MEDS: DESYREL 50 MG PO SCH (22:54)
[2016-10-19] MEDS: DUONEB 0.5-3 MG/3 ml Neb IH SCH ×6 (03:15→23:18)
[2016-10-19 05:34] LABS: Mean Cell Volume 94.7 fl (78-100); Mean Corpuscular Hemoglobin 28.2 pg (26-32); Mean Platelet Volume 8.8 fl (6-9.5); Platelet Count 332 K/mm3 (150-450); Red Blood Count 3.19 M/mm3 (4.1-5.4); Red Cell Distribution Width 17.9 % (11.5-14.0); White Blood Count 15.3 K/mm3 (4.0-10.5)
[2016-10-19 06:15] LABS: ANION GAP 10.9 MEQ/L (5-15); BLOOD UREA NITROGEN 25 mg/dL (9-20); CHLORIDE 109 mEq/L (98-107); Carbon Dioxide 26.7 mEq/L (21-32); Glucose 127 MG/DL (70-110); Potassium 3.9 mEq/L (3.5-5.1); SODIUM 143 mEq/L (136-145)
[2016-10-19] MEDS: Advair Hfa 230/21 Mcg COMMON CANISTER IH SCH ×2 (06:37→19:39)
[2016-10-19 07:20] LABS: BAND 2 % (0.0-2.0); Eosinophil 1 % (0.00-3.0); Metamyelocyte 5 %; Myelocyte 1 %; Platelet Estimate NORMAL (NORMAL); Total Cells Counted 100
[2016-10-19] MEDS: DILAUDID 2 MG INJECTION IV PRN ×3 (07:30→20:57)
[2016-10-19] MEDS: Protonix 40MG Tablet PO SCH (08:43)
[2016-10-19] MEDS: LYRICA 100MG PO SCH ×2 (08:43→21:58)
[2016-10-19] MEDS: Klor Con 10 MEQ PO SCH ×2 (08:43→21:58)
[2016-10-19] MEDS: MYSOLINE 50MG PO SCH ×2 (08:43→22:01)
[2016-10-19] MEDS: CLARITIN 10 MG PO SCH (08:44)
[2016-10-19] MEDS: Naprosyn 500 MG PO SCH ×2 (08:44→22:00)
[2016-10-19] MEDS: Lexapro 10 MG PO SCH (08:44)
[2016-10-19] MEDS: Klonopin 0.5 MG PO SCH ×2 (08:44→21:58)
[2016-10-19] MEDS: Vibramycin 100 MG PO SCH ×2 (08:44→22:00)
[2016-10-19] MEDS: zyPREXA 5MG TABLET PO SCH (08:44)
[2016-10-19] MEDS: Miralax Powder 17GM PACKET PO SCH ×2 (09:00→10:26)
[2016-10-19] MEDS ORDERED: NON-FORMULARY ITEM (Escitalopram Oxalate [Lexapro] 20 MG) PO SCH (10:00)
[2016-10-19] MEDS: ENOXAPARIN SODIUM SQ SCH (10:26)
[2016-10-19] MEDS: Sodium Chloride 0.9% 1000 ML 1,000 ML IV SCH ×2 (10:27→20:29)
[2016-10-19] MEDS: DESYREL 50 MG PO SCH (21:57)
[2016-10-19] MEDS: DALIRESP PO SCH (21:57)
[2016-10-19] MEDS: Pepcid 20 MG PO SCH (22:00)
[2016-10-20] MEDS: DUONEB 0.5-3 MG/3 ml Neb IH SCH ×4 (03:04→14:55)
[2016-10-20] MEDS: Sodium Chloride 0.9% 1000 ML 1,000 ML IV SCH (06:35)
[2016-10-20] MEDS: Advair Hfa 230/21 Mcg COMMON CANISTER IH SCH (06:59)
[2016-10-20] MEDS: DILAUDID 2 MG INJECTION IV PRN (07:05)
[2016-10-20] MEDS: Protonix 40MG Tablet PO SCH (09:06)
[2016-10-20] MEDS: Klonopin 0.5 MG PO SCH (09:06)
[2016-10-20] MEDS: Lexapro 10 MG PO SCH (09:06)
[2016-10-20] MEDS: MYSOLINE 50MG PO SCH (09:06)
[2016-10-20] MEDS: CLARITIN 10 MG PO SCH (09:06)
[2016-10-20] MEDS: Vibramycin 100 MG PO SCH (09:06)
[2016-10-20] MEDS: ENOXAPARIN SODIUM SQ SCH (09:08)
[2016-10-20] MEDS: zyPREXA 5MG TABLET PO SCH (09:08)
[2016-10-20] MEDS: Klor Con 10 MEQ PO SCH (09:08)
[2016-10-20] MEDS: Miralax Powder 17GM PACKET PO SCH (09:08)
[2016-10-20] MEDS: Naprosyn 500 MG PO SCH (09:08)
[2016-10-20] MEDS: LYRICA 100MG PO SCH (09:08)
--- NOTE | 2016-10-20 10:22 | PCM.NOTE ---
Date and Time: 10/20/16 1013 Subjective Assessment: Patient reports she was suppose to have her cast off her right foot this past week but missed the appt due to an appointment for her back brace. A doctor at [facility] is caring for this. She reports while having the cast, she has been ambulating with a walker and a wheelchair. She reports rehab won't do her any good because she hurts too much when she moves around. She had 3 doses (1mg) of dilaudid yesterday on top of her 112 mcg/hr fentanyl patches that she wears at home and she also has hydrocodone at home but this is being held now. She reports she wears 2.5L of oxygen all the time. She had some right upper quadrant pain this AM but reports they gave her medication for this and it is better. She reports pain when rolling to the right side for auscultation of her lungs. - Review of Systems Constitutional: Weakness Eyes: No Symptoms Ears, Nose, & Throat: No Symptoms Respiratory: Wheezing Cardiac: No Symptoms Abdominal/Gastrointestinal: Other (stool normal yesterday) Genitourinary Symptoms: No Symptoms Musculoskeletal: Back Pain, Other (right leg in cast) Skin: Other (multiple bruises on arms) Objective Exam General Appearance: no apparent distress, alert, other (friend that states he helps take care of her at bedside, talkative) Neurologic Exam: alert, cooperative, normal mood/affect Skin Exam: normal color, dry Respiratory Exam: prolonged expirations, other (few scattered wheezes), No respiratory distress, No accessory muscle use, No crackles/rales, No rhonchi Cardiovascular Exam: regular rate/rhythm, normal heart sounds, No murmur, No friction rub, No gallop Gastrointestinal/Abdomen Exam: soft, normal bowel sounds, tenderness, distention , No mass, No guarding Extremity Exam: other (right leg in case, no c/c/e of left leg) OBJECTIVE DATA Vital Signs: Vital Signs - 24 hr Temp Pulse Resp BP Pulse Ox 10/20/16 08:00 18 10/20/16 07:27 98.1 F 97 H 18 115/56 97 10/20/16 07:00 97 H 20 97 10/20/16 04:00 98.5 F 80 16 112/65 96 10/20/16 03:04 20 L 16 96 10/20/16 00:00 98.3 F 96 H 16 112/68 95 10/19/16 23:18 99 H 19 97 10/19/16 20:00 20 10/19/16 19:42 98.4 F 93 H 20 105/56 96 10/19/16 19:38 92 H 19 99 10/19/16 19:00 98 10/19/16 16:00 20 10/19/16 15:51 98.1 F 88 20 99/60 94 L 10/19/16 14:38 89 16 98 10/19/16 12:12 98 F 90 20 90/52 95 10/19/16 12:00 18 10/19/16 10:57 95 H 18 97 Oxygen-Last 24 hours O2 Percentage 2 Liters = 28% O2 Percentage 2 Liters = 28% O2 Percentage 2 Liters = 28% O2 Percentage 2 Liters = 28% O2 Percentage 2 Liters = 28% Pain Assessment - Last Documented Pain Intensity 10 Pain Scale Used 0-10 Pain Scale Intake and Output: Intake & Output 10/18/16 10/19/16 10/20/16 10/21/16 06:59 06:59 06:59 06:59 Intake Total 3548 2706 480 Output Total 537 640 2675 Balance -750 2648 1056 480 Weight 68.039 kg 67.948 kg 67.721 kg Assessment/Plan (1) Intractable back pain Current Visit: Yes Status: Acute Assessment & Plan: Continue home doses of fentanyl and dilaudid IV prn. Code(s): M54.9 - DORSALGIA, UNSPECIFIED (2) Wedge compression fracture of T9 vertebra Current Visit: Yes Status: Acute Assessment & Plan: Pain control as above. Code(s): S22.070A - WEDGE COMPRESSION FRACTURE OF T9-T10 VERTEBRA, INIT (3) Acute exacerbation of chronic obstructive airways disease Current Visit: Yes Status: Acute Assessment & Plan: Continue oral doxycycline. Dr. Bean notes she is not sure if she finished her last course of antibiotics for COPD. She is on her baseline oxygen. Continue breathing treatments as needed. Code(s): J44.1 - CHRONIC OBSTRUCTIVE PULMONARY DISEASE W (ACUTE) EXACERBATION
--- NOTE | 2016-10-20 15:33 | PCM.DCORD ---
- Discharge Discharge Date: 10/20/16 Disposition: Home, Self-Care Condition: Fair Prescriptions: New Polyethylene Glycol 3350 17 gm [Miralax Powder 17GM PACKET] 17 gm PO DAILY PRN #30 packet PRN Reason: Constipation Doxycycline Hyclate 100 mg [Vibramycin 100 MG] 100 mg PO BID #16 tab Continue Hydrocodone Bit/Acetaminophen [[place] 10-325 Tablet] 1 each PO QID PRN PRN PRN Reason: Pain Potassium Chloride 10 Meq Tab* [Klor Con 10 MEQ] 10 meq PO BID Fluticasone/Salmeterol 230/21 [Advair Hfa 230/21 Mcg COMMON CANISTER*] 2 puff IH BIDRT Prednisone 10 mg [Deltasone 10 mg] 10 mg PO DAILY Loratadine 10 mg [Claritin 10 mg] 10 mg PO DAILY Famotidine 20 mg [Pepcid 20 MG] 20 mg PO HS Roflumilast [Daliresp] 500 mcg PO HS Pramipexole Di-HCl [Mirapex] 1 - 2 tablet PO HS PRN PRN PRN Reason: Muscle Spasms Primidone 50 MG [Mysoline 50Mg] 50 mg PO DAILY Escitalopram Oxalate [Lexapro] 20 mg PO DAILY Bisacodyl 5 mg [Dulcolax 5 mg] 5 mg PO DAILY PRN PRN PRN Reason: Constipation Trazodone HCl 50 mg [Desyrel 50 mg] 50 mg PO HS Pregabalin [Lyrica 100Mg] 200 mg PO BID Promethazine HCl 12.5 mg PO QID PRN PRN PRN Reason: Nausea PANTOPRAZOLE 40 mg Tablet [Protonix 40MG Tablet] 40 mg PO DAILY Tizanidine HCl 2 mg PO DAILY Amitriptyline HCl 150 mg PO HS Fentanyl [Duragesic 12MCG Patch] 12 mcg TOP Q3D Fentanyl 100 Mcg Patch [Duragesic 100 MCG Patch] 100 mcg TOP Q3D Olanzapine [Zyprexa] 5 mg PO DAILY Primidone 50 MG [Mysoline 50Mg] 100 mg PO HS Albuterol/Ipratropium 3ml Neb* [DUONEB 0.5-3 MG/3 ml Neb] 3 ml IH QID Naproxen [EC-Naprosyn] 500 mg PO BID Loperamide HCl 2 mg [Imodium 2 mg] 2 mg PO Q4HPRN PRN PRN Reason: Diarrhea Clonazepam 1 mg PO BID Zonisamide [Zonegran] 100 mg PO BID Ondansetron [Zofran Odt] 4 mg PO Q6HPRN PRN PRN Reason: Nausea/Vomiting Ipratropium [place] Hfa [Atrovent HFA MDI] 17 gm IH QID Diclofenac Sodium Gel [Voltaren GEL] 1 applic TP QID PRN Prednisone 20 mg [Deltasone 20 mg] 20 mg PO DAILY #17 tablet Discontinued Cyclobenzaprine HCl [Flexeril] 10 mg PO Q8H PRN PRN #12 tablet PRN Reason: Pain Follow up with: JETT RUSSELL [Primary Care Provider] - Forms: Patient Portal Information
[2016-10-20 17:00] VITALS: BP 106/59; PULSE 98; O2SAT 96
== END 2016-10-20 15:56 | disposition home or self-care (01) ==
LOC: ED 03:08 → MED SURG 05:38
PROVIDERS: ADMIT Family Medicine; ATTEND Family Medicine
DX: M54.9 Dorsalgia, unspecified (principal); S22.070A Wedge compression fracture of T9-T10 vertebra, initial encounter for closed fracture; R79.89 Other specified abnormal findings of blood chemistry; G31.83 Neurocognitive disorder with Lewy bodies; F02.80 Dementia in other diseases classified elsewhere, unspecified severity, without behavioral disturbance, psychotic disturbance, mood disturbance, and anxiety; M87.9 Osteonecrosis, unspecified; Z65.9 Problem related to unspecified psychosocial circumstances; Z72.0 Tobacco use; R25.1 Tremor, unspecified; J44.1 Chronic obstructive pulmonary disease with (acute) exacerbation
CPT/HCPCS: 36415; 71010; 80048; 80053; 82805; 83735; 84484; 85025; 85379; 93005; 93041; 93268; 94640; 94760; 96360; 96372; 96374; 99285; G0378; J1170; J1650; J2930; A9270-GY

== ENCOUNTER 2016-10-23 13:52 | Observation (INO) | payer OTHER ==
[2016-10-23] MEDS ORDERED: SUBLIMAZE 100 MCG/2 ML IV ONE (14:11)
[2016-10-23] MEDS ORDERED: Pepcid 20 MG VIAL IV ONE ×2 (14:11→15:09)
[2016-10-23] MEDS ORDERED: PROVENTIL 2.5 MG/3 ML NEB IH ONE ×2 (14:12→15:11)
--- NOTE | 2016-10-23 14:22 | ERPHSYRPT ---
- History of Present Illness Time Seen by Provider: 10/23/16 13:54 Source: patient, EMS (Care- neb given) Patient Subjective Stated Complaint: EMS STATES THEY WERE CALLED TO PT HOUSE FOR CHEST PAIN. PT STATES SHE HAS HAD PAIN OFF AND ON ALL NIGHT LONG. PT RELEASED FROM HOSPITAL ON 10/21/16. Triage Nursing Assessment: PT PINK, WARM, DRY. WHEEZES NOTED IN ANTERIOR LUNG THOMAS. ABDOMEN DISTENDED. HYPOACTIVE BOWEL SOUNDS PRESENT. Physician History: CC: pain Hx: 61 y/o patient who lives at home with extended family. She has hx of chronic pain syndrome and lewy body dementia. She states she had too much pain today to take her medication and to get up in the bed. She reports normal bowel and bladder. No fever. She has back pain, chest pain, abd pain. Daughter called EMS. She is on oxygen and breathes fairly well when on it. Pt of Dr Bean. Allergies/Adverse Reactions: aspirin [From Aspirin Regimen Cheri/Calcium] Adverse Reaction (Mild, Verified 14:08) Nausea calcium carbonate [From Aspirin Regimen Cheri/Calcium] Adverse Reaction (Mild, Verified 10/23/16 14:08) Nausea Home Medications: Albuterol/Ipratropium 3ml Neb* [DUONEB 0.5-3 MG/3 ml Neb] 3 ml IH QID [History] Amitriptyline HCl 150 mg PO HS 07/27/16 [History] Bisacodyl 5 mg [Dulcolax 5 mg] 5 mg PO DAILY PRN PRN 07/27/16 [History] Fentanyl 100 Mcg Patch [Duragesic 100 MCG Patch] 100 mcg TOP Q3D 07/27/16 [History] Fentanyl [Duragesic 12MCG Patch] 12 mcg TOP Q3D 07/27/16 [History] Hydrocodone Bit/Acetaminophen [[place] 10-325 Tablet] 1 each PO QID PRN PRN [History] Loratadine 10 mg [Claritin 10 mg] 10 mg PO DAILY 07/27/16 [History] Olanzapine [Zyprexa] 5 mg PO DAILY 07/27/16 [History] PANTOPRAZOLE 40 mg Tablet [Protonix 40MG Tablet] 40 mg PO DAILY 07/27/16 [ History] Pramipexole Di-HCl [Mirapex] 1 - 2 tablet PO HS PRN PRN 07/27/16 [History] Prednisone 10 mg [Deltasone 10 mg] 10 mg PO DAILY 07/27/16 [History] Pregabalin [Lyrica 100Mg] 200 mg PO BID 07/27/16 [History] Primidone 50 MG [Mysoline 50Mg] 50 mg PO DAILY 07/27/16 [History] Primidone 50 MG [Mysoline 50Mg] 100 mg PO HS 07/27/16 [History] Promethazine HCl 12.5 mg PO QID PRN PRN 07/27/16 [History] Roflumilast [Daliresp] 500 mcg PO HS 07/27/16 [History] Tizanidine HCl 2 mg PO DAILY 07/27/16 [History] Trazodone HCl 50 mg [Desyrel 50 mg] 50 mg PO HS 07/27/16 [History] Clonazepam 1 mg PO BID 09/05/16 [History] Loperamide HCl 2 mg [Imodium 2 mg] 2 mg PO Q4HPRN PRN 09/05/16 [History] Ipratropium [place] Hfa [Atrovent HFA MDI] 17 gm IH QID 10/07/16 [History] Escitalopram Oxalate [Lexapro] 20 mg PO DAILY 10/23/16 [History] Hx Tetanus, Diphtheria Vaccination/Date Given: Yes (UP TO DATE) Hx Influenza Vaccination/Date Given: Yes Hx Pneumococcal Vaccination/Date Given: Yes Immunizations Up to Date: Yes - Review of Systems Constitutional: Malaise, No Fever, No Chills Eyes: No Symptoms Ears, Nose, & Throat: No Symptoms Respiratory: No Cough, No Dyspnea Cardiac: Chest Pain Abdominal/Gastrointestinal: Abdominal Pain, No Nausea, No Vomiting, No Diarrhea , No Constipation Genitourinary Symptoms: No Dysuria Musculoskeletal: Back Pain, Neck Pain Skin: No Rash Neurological: No Headache All Other Systems: Reviewed and Negative - Past Medical History Pertinent Past Medical History: Yes Neurological History: Dementia, Migraines ENT History: No Pertinent History Cardiac History: No Pertinent History Respiratory History: COPD Endocrine Medical History: Hypothyroidism Musculoskeletal History: Fibromyalgia, Osteoarthritis, Osteoporosis, Other GI Medical History: No Pertinent History, GERD, Hernia History: No Pertinent History Psycho-Social History: Anxiety, Bipolar, Depression, Eating Disorders, Panic Disorder Female Reproductive Disorders: Abnormal Uterine Bleeding Other Medical History: NEURO CHANGES TO LEGS AND ARMS - Past Surgical History Past Surgical History: Yes Neuro Surgical History: No Pertinent History Cardiac: No Pertinent History Respiratory: No Pertinent History Gastrointestinal: No Pertinent History Genitourinary: No Pertinent History Musculoskeletal: No Pertinent History Female Surgical History: Hysterectomy, Tubal Ligation Other Surgical History: scope on lungs,bx done"cleaned my lungs",jaw screws place -had rib bone placed to jaw,fatty tumors removed from back and right hand, right hand nodule removed in september 2011 - Social History Smoking Status: Current every day smoker How long have you smoked: 45 Exposure to second hand smoke: Yes Alcohol Use: None Drug Use: none Patient Lives Alone: No (lives at home) Significant Family History: no pertinent family hx - Female History Hx Now: No - Nursing Vital Signs Nursing Vital Signs: Initial Vital Signs Temperature 98.3 F 10/23/16 13:53 Pulse Rate 89 10/23/16 13:53 Respiratory Rate 24 10/23/16 13:53 Blood Pressure 122/68 10/23/16 13:53 O2 Sat by Pulse Oximetry 97 10/23/16 13:53 Pain Scale Pain Intensity 9 - Physical Exam General Appearance: alert, obese Eye Exam: PERRL/EOMI Ears, Nose, Throat Exam: moist mucous membranes Neck Exam: supple Respiratory Exam: diminished breath sounds Cardiovascular Exam: regular rate/rhythm Gastrointestinal/Abdomen Exam: soft, tenderness (mild discomfort, protruberant distended abdomen with distended cutaneous veins) Back Exam: vertebral tenderness Extremity Exam: other (cast) Neurologic Exam: alert, oriented x 3, cooperative Skin Exam: warm, dry SpO2 Interpretation: normal SpO2: 97 Oxygen Delivery: Nasal Cannula - Course Nursing assessment & vital signs reviewed: Yes EKG Interpreted by Me: RATE (86), Sinus Rhythm, NORMAL AXIS, NORMAL INTERVALS ( QTc 409), NORMAL QRS, NORMAL ST-T Ordered Tests: Active Orders 24 hr Category Date Time Status Catheter-Helena Phelps STAT Care 10/23/16 14:11 Active EKG-ER Only STAT Care 10/23/16 14:11 Active IV Insertion STAT Care 10/23/16 14:11 Active Oxygen-ED Only NASAL CANNULA 2 lpm Care 10/23/16 14:12 Active LUMBAR LIMITED (2 OR 3 VIEWS) Stat Exams 10/23/16 14:15 Completed OBSTR/ACUTE ABDOMEN SERIES Stat Exams 10/23/16 14:11 Completed THORACIC SPINE (AP,LAT,SWIMM) Stat Exams 10/23/16 14:15 Completed CBC W DIFF Stat Lab 10/23/16 14:30 Completed CMP Stat Lab 10/23/16 14:30 Completed LIPASE Stat Lab 10/23/16 14:30 Completed Manual Differential NC Stat Lab 10/23/16 14:30 Completed TROPONIN Q3H Lab 10/23/16 14:15 Completed TROPONIN Q3H Lab 10/23/16 17:15 Ordered TROPONIN Q3H Lab 10/23/16 20:15 Ordered TROPONIN Q3H Lab 10/23/16 23:15 Ordered TROPONIN Q3H Lab 10/24/16 02:15 Ordered UA W/ MICROSCOPIC Stat Lab 10/23/16 14:20 Completed VENOUS BLOOD GAS Stat Lab 10/23/16 14:12 Completed Respiratory Nebulizer STAT RT 10/23/16 14:12 Active Medication Summary Discontinued Medications Generic Name Dose Route Start Last Admin Trade Name Freq PRN Reason Stop Dose Admin Albuterol Sulfate 2.5 mg 10/23/16 14:12 10/23/16 15:13 Proventil 2.5 Mg/3 Ml Neb IH 10/23/16 14:13 2.5 mg STAT ONE Administration Albuterol Sulfate Confirm 10/23/16 15:11 Proventil 2.5 Mg/3 Ml Neb Administered 10/23/16 15:12 Dose 2.5 mg IH .STK-MED ONE Famotidine 20 mg 10/23/16 14:11 10/23/16 15:10 Pepcid 20 Mg Vial IV 10/23/16 14:12 20 mg STAT ONE Administration Famotidine Confirm 10/23/16 15:09 Pepcid 20 Mg Vial Administered 10/23/16 15:10 Dose 20 mg IV .STK-MED ONE Fentanyl Citrate 50 mcg 10/23/16 14:11 10/23/16 15:10 Sublimaze 100 Mcg/2 Ml IV 08/15/17 14:12 50 mcg STAT ONE Administration Fentanyl Citrate Confirm 10/23/16 15:09 Sublimaze 100 Mcg/2 Ml Administered 10/23/16 15:10 Dose 100 mcg .ROUTE .STK-MED ONE Lab/Rad Data: Laboratory Result Diagrams 10/23/16 14:30 10/23/16 14:30 Laboratory Results 10/23/16 10/23/16 10/23/16 Range/Units 14:30 14:30 14:30 WBC 18.0 H (4.0-10.5) K/mm3 RBC 4.01 L (4.1-5.4) M/mm3 Hgb 11.3 L (12.0-16.0) gm/dl Hct 38.1 (35-47) % MCV 95.0 (78-100) fl MCH 28.1 (26-32) pg MCHC 29.7 L (32-36) g/dl RDW 17.9 H (11.5-14.0) % Plt Count 381 (150-450) K/mm3 MPV 9.1 (6-9.5) fl VBG pH (7.32-7.42) VBG pCO2 at Pat Temp (42-55) mm/Hg VBG pO2 at Pat Temp (25-40) mm/Hg VBG HCO3 (22-28) meq/L VBG O2 Sat (Noman) (95-100) VBG Base Excess (-2.0-2.0) VBG Hemoglobin VBG Carboxyhemoglobin (0.0-6.9) % T HGB POC Potassium (3.5-5.1) Sodium 142 (136-145) mEq/L Potassium 4.1 (3.5-5.1) mEq/L Chloride 103 (98-107) mEq/L Carbon Dioxide 32.1 H (21-32) mEq/L Anion Gap 11.4 (5-15) MEQ/L BUN 11 (9-20) mg/dL Creatinine 0.95 (0.55-1.30) mg/dl Estimated GFR > 60 ML/MIN Glucose 105 (70-110) MG/DL Calcium 9.4 (8.5-10.1) mg/dL Total Bilirubin 0.20 (0.2-1.0) mg/dL AST 11 L (15-37) U/L ALT 23 (12-78) U/L Alkaline Phosphatase 127 H (46-116) U/L Troponin I (0.000-0.056) ng/ml Serum Total Protein 7.1 (6.4-8.2) gm/dL Albumin 3.1 L (3.4-5.0) g/dL Lipase 50 L (73-393) U/L Ur Collection Type Urine Color (YELLOW) Urine Appearance (CLEAR) Urine pH (5-6) Ur Specific [place] (1.005-1.025) Urine Protein (Negative) Urine Ketones (NEGATIVE) Urine Blood (0-5) Gadiel/ul Urine Nitrite (NEGATIVE) Urine Bilirubin (NEGATIVE) Urine Urobilinogen (0-1) mg/dL Ur Leukocyte Esterase (NEGATIVE) Urine Microscopic RBC (0-2) /HPF Ur Epithelial Cells (FEW) /HPF Urine Bacteria (NEGATIVE) /HPF Urine Glucose (NEGATIVE) mg/dL Specimen Received 10/23/16 10/23/16 10/23/16 Range/Units 14:20 14:15 14:12 WBC (4.0-10.5) K/mm3 RBC (4.1-5.4) M/mm3 Hgb (12.0-16.0) gm/dl Hct (35-47) % MCV (78-100) fl MCH (26-32) pg MCHC (32-36) g/dl RDW (11.5-14.0) % Plt Count (150-450) K/mm3 MPV (6-9.5) fl VBG pH 7.40 (7.32-7.42) VBG pCO2 at Pat Temp 58 H (42-55) mm/Hg VBG pO2 at Pat Temp 23 L (25-40) mm/Hg VBG HCO3 35.9 H* (22-28) meq/L VBG O2 Sat (Noman) 48.4 L (95-100) VBG Base Excess 9.3 H (-2.0-2.0) VBG Hemoglobin 11.8 VBG Carboxyhemoglobin 3.7 (0.0-6.9) % T HGB POC Potassium 4.1 (3.5-5.1) Sodium (136-145) mEq/L Potassium (3.5-5.1) mEq/L Chloride (98-107) mEq/L Carbon Dioxide (21-32) mEq/L Anion Gap (5-15) MEQ/L BUN (9-20) mg/dL Creatinine (0.55-1.30) mg/dl Estimated GFR ML/MIN Glucose (70-110) MG/DL Calcium (8.5-10.1) mg/dL Total Bilirubin (0.2-1.0) mg/dL AST (15-37) U/L ALT (12-78) U/L Alkaline Phosphatase (46-116) U/L Troponin I < 0.017 (0.000-0.056) ng/ml Serum Total Protein (6.4-8.2) gm/dL Albumin (3.4-5.0) g/dL Lipase (73-393) U/L Ur Collection Type VOID Urine Color YELLOW (YELLOW) Urine Appearance CLEAR (CLEAR) Urine pH 8.0 (5-6) Ur Specific [place] 1.005 (1.005-1.025) Urine Protein NEGATIVE (Negative) Urine Ketones NEGATIVE (NEGATIVE) Urine Blood 5-10 (0-5) Gadiel/ul Urine Nitrite NEGATIVE (NEGATIVE) Urine Bilirubin NEGATIVE (NEGATIVE) Urine Urobilinogen NORMAL (0-1) mg/dL Ur Leukocyte Esterase NEGATIVE (NEGATIVE) Urine Microscopic RBC 0-2 (0-2) /HPF Ur Epithelial Cells RARE (FEW) /HPF Urine Bacteria RARE (NEGATIVE) /HPF Urine Glucose NEGATIVE (NEGATIVE) mg/dL Specimen Received 10/23/16 1420 - Progress Progress Note: 10/23/16 14:22 This appears to be exacerbation of her chronic pain syndrome. She has some abdominal fullness. She needs socially responsible investment adviser. 10/23/16 16:08 Reviewed xrays and labs with pt and both daughters. She can not go home. She has worsened T compression. Called Dr Bean who will admit to IP, consult Dr Gonzalez and plan rehab. She has intractable pain. Pt and daughters agree with plan. Counseled pt/family regarding: lab results, diagnosis, need for follow-up, rad results - Departure Time of Disposition: 16:09 Departure Disposition: In-patient Admission Clinical Impression: Intractable back pain, Thoracic compression fracture, COPD (chronic obstructive pulmonary disease) Condition: Fair Critical Care Time: No Referrals: JETT BEAN [Primary Care Provider] - Instructions: Chronic Obstructive Pulmonary Disease
[2016-10-23 14:37] LABS: VBG BASE EXCESS 9.3 (-2.0-2.0); VBG CARBOXYHEMOGLOBIN 3.7 % T HGB (0.0-6.9); VBG HCO3- 35.9 meq/L (22-28); VBG HEMOGLOBIN 11.8; VBG O2 SATURATION 48.4 (95-100); VBG POTASSIUM 4.1 (3.5-5.1); VBG pH 7.4 (7.32-7.42)
[2016-10-23 14:46] LABS: Mean Platelet Volume 9.1 fl (6-9.5); Platelet Count 381 K/mm3 (150-450); Red Blood Count 4.01 M/mm3 (4.1-5.4); Red Cell Distribution Width 17.9 % (11.5-14.0)
[2016-10-23 14:49] LABS: Mean Corpuscular Hemoglobin 28.1 pg (26-32)
[2016-10-23 15:04] LABS: ADD URINE CULTURE? NO (NO); Bacteria RARE /HPF (NEGATIVE); Bilirubin NEGATIVE (NEGATIVE); COMPLETE URINE MICROSCOPIC? YES; Collection Type VOID; Epithelial Cells RARE /HPF (FEW); Glucose NEGATIVE (NEGATIVE); Leukocyte Esterase NEGATIVE (NEGATIVE)
[2016-10-23 15:05] LABS: ALBUMIN 3.1 g/dL (3.4-5.0); ALKALINE PHOSPHATASE 127 U/L (46-116); ANION GAP 11.4 MEQ/L (5-15); BLOOD UREA NITROGEN 11 mg/dL (9-20); CHLORIDE 103 mEq/L (98-107); Carbon Dioxide 32.1 mEq/L (21-32); Glucose 105 MG/DL (70-110); Potassium 4.1 mEq/L (3.5-5.1); SGOT/AST 11 U/L (15-37); SGPT/ALT 23 U/L (12-78); SODIUM 142 mEq/L (136-145); Total Protein 7.1 gm/dL (6.4-8.2)
[2016-10-23] MEDS ORDERED: SUBLIMAZE 100 MCG/2 ML ONE (15:09)
--- NOTE | 2016-10-23 15:29 | XRAY ---
Indication: Back pain. No known injury. Comparison: CT lumbar spine November 21, 2014. 3 views of the lumbar spine again demonstrates osteopenia and moderate L5-S1 degenerative disc disease. Incidental right hip advanced degenerative changes. No new bony, articular, or soft tissue abnormalities.
--- NOTE | 2016-10-23 15:30 | XRAY ---
Indication: Comparison: Chest exam 5 days ago. Supine and left lateral decubitus abdomen demonstrates nonspecific nonobstructed bowel gas pattern. Moderate diffuse scattered colonic fecal debris predominantly in the right hemicolon. There are few tiny radiodensities overlying left renal silhouette possibly calculi, largest 9 mm. Similar 5 mm radiodensity seen to the left of the L4-L5 interspace possibly ureteral calculus. Osseous structures intact with osteopenia and advanced degenerative changes of the right hip. Single AP chest again demonstrates clear lungs with a few calcific granulomas. Heart is not enlarged. Bony thorax intact with osteopenia and degenerative changes. Impression: 1. Fecal stasis without obstruction. 2. Query left renal and left ureter calculi. CT renal stone study may yield further information if there remains further clinical concern. 2. Stable nonacute one view chest.
--- NOTE | 2016-10-23 15:32 | XRAY ---
Indication: Back pain. No known injury. Comparison: August 28, 2011. Frontal/lateral thoracic spine demonstrates new T7 compression fracture with near complete collapse. Also new T6 inferior endplate fracture with less than 25% height loss. Fractures are of uncertain chronicity. Remaining thoracic spine unremarkable.
[2016-10-23] MEDS ORDERED: DILAUDID 2 MG INJECTION IV PRN (17:19)
[2016-10-23] MEDS ORDERED: NON-FORMULARY ITEM (Promethazine Hcl [Promethazine Hcl] 12.5 MG) PO PRN (17:23)
[2016-10-23] MEDS ORDERED: IMODIUM 2 MG PO PRN (17:23)
[2016-10-23] MEDS ORDERED: PRAMIPEXOLE DI HCL PO PRN (17:23)
[2016-10-23] MEDS ORDERED: DULCOLAX 5 MG PO PRN (17:23)
[2016-10-23] MEDS ORDERED: NON-FORMULARY ITEM (Cyclobenzaprine Hcl [Flexeril] 5 MG) PO SCH (17:30)
[2016-10-23] MEDS ORDERED: Cyclobenzaprine 10 MG PO PRN (17:31)
[2016-10-23] MEDS ORDERED: Mirapex 0.5 MG Tablet PO PRN (17:35)
[2016-10-23] MEDS ORDERED: Phenergan 25 MG INJ IV PRN (17:36)
[2016-10-23] MEDS ORDERED: Zanaflex 4 MG PO PRN (17:37)
[2016-10-23] MEDS ORDERED: zyPREXA 5MG TABLET ONE (18:03)
[2016-10-23] MEDS ORDERED: Lexapro 10 MG ONE (18:04)
[2016-10-23] MEDS: Nicoderm CQ 21 MG TOP SCH (18:06)
[2016-10-23] MEDS: Lexapro 10 MG PO SCH (18:10)
[2016-10-23] MEDS: zyPREXA 5MG TABLET PO SCH (18:11)
[2016-10-23] MEDS ORDERED: DURAGESIC TOP SCH (19:00)
[2016-10-23 19:11] LABS: ATYPICAL LYMPHS 1 %; BAND 1 % (0.0-2.0); Eosinophil 3 % (0.00-3.0); Metamyelocyte 2 %; Total Cells Counted 100
[2016-10-23 19:12] LABS: Platelet Estimate NORMAL (NORMAL)
[2016-10-23] MEDS: DUONEB 0.5-3 MG/3 ml Neb IH SCH (19:28)
[2016-10-23] MEDS: Advair Hfa 230/21 Mcg COMMON CANISTER IH SCH (19:30)
[2016-10-23] MEDS ORDERED: DUONEB 0.5-3 MG/3 ml Neb IH PRN (19:55)
[2016-10-23] MEDS: LYRICA 100MG PO SCH (21:49)
[2016-10-23] MEDS: Norco 10/325 MG Tablet PO PRN (21:49)
[2016-10-23] MEDS: MYSOLINE 50MG PO SCH (21:49)
[2016-10-23] MEDS: Klonopin 0.5 MG PO SCH (21:50)
[2016-10-23] MEDS: DALIRESP PO SCH (21:51)
[2016-10-23] MEDS ORDERED: TIZANIDINE HCL 2 MG PO SCH (22:00)
[2016-10-23] MEDS ORDERED: DESYREL 50 MG PO PRN (22:00)
[2016-10-23] MEDS ORDERED: CLONAZEPAM 1 MG PO SCH (22:00)
[2016-10-23] MEDS ORDERED: Atrovent HFA MDI IH SCH (22:00)
[2016-10-24] MEDS: Advair Hfa 230/21 Mcg COMMON CANISTER IH SCH ×2 (06:46→19:13)
[2016-10-24] MEDS: DUONEB 0.5-3 MG/3 ml Neb IH SCH ×4 (06:46→19:13)
--- NOTE | 2016-10-24 08:52 | PCM.HP ---
History of Present Illness - Chief Complaint Chief Complaint: Intractable back pain thoracic compression fx COPD History of Present Illness: is a 61 year old female with multiple recent admissions, returning to the ER yesterday wiht chest pain and back pain. Her first admission recently was for a COPD exacerbtaion; she was having new back pain at that time. She was found to have a possibly new extension of T9 fracture; she refused ortho consult then. She was re-admitted last week and sent home. Yesterday she started having chest pain and her back pain was worse; in the ER she was found to have a new T7 fracture and her fentanyl patches were found to have been on her x 5 days. She states her daughter changes them and patel it on the calendar. She was on hospice for end stage COPD about 2 years ago, then no longer qualified for hospice as her condition improved. She has osteonecrosis of the R hip and knee and I had to do home visits with her for over a year. Then she started getting out to some quality assurance consultant visits and has been able to see me in the office the last couple of visits, so I did tell her last visit that she had to start seeing pain management for her pain medicine. She has a history of frontotemporal (Lewy Body) dementia. She has a recent memory that is sometimes intact, but sometimes not. She does not remember being on hospice at all. - Review of Systems All Other Systems: Unable due to dementia Medications & Allergies Home Medications: Home Medication List Albuterol/Ipratropium 3ml Neb* [DUONEB 0.5-3 MG/3 ml Neb] 3 ml IH QID [History Confirmed 10/23/16] Amitriptyline HCl 150 mg PO HS 07/27/16 [History Confirmed 10/23/16] Bisacodyl 5 mg [Dulcolax 5 mg] 5 mg PO DAILY PRN PRN 07/27/16 [History Confirmed 10/23/16] Fentanyl 100 Mcg Patch [Duragesic 100 MCG Patch] 100 mcg TOP Q3D 07/27/16 [History Confirmed 10/23/16] Fentanyl [Duragesic 12MCG Patch] 12 mcg TOP Q3D 07/27/16 [History Confirmed ] Hydrocodone Bit/Acetaminophen [[place] 10-325 Tablet] 1 each PO QID PRN PRN [History Confirmed 10/23/16] Loratadine 10 mg [Claritin 10 mg] 10 mg PO DAILY 07/27/16 [History Confirmed 10/23/16] Olanzapine [Zyprexa] 5 mg PO DAILY 07/27/16 [History Confirmed 10/23/16] PANTOPRAZOLE 40 mg Tablet [Protonix 40MG Tablet] 40 mg PO DAILY 07/27/16 [ History Confirmed 10/23/16] Pramipexole Di-HCl [Mirapex] 1 - 2 tablet PO HS PRN PRN 07/27/16 [History Confirmed 10/23/16] Prednisone 10 mg [Deltasone 10 mg] 10 mg PO DAILY 07/27/16 [History Confirmed 10/23/16] Pregabalin [Lyrica 100Mg] 200 mg PO BID 07/27/16 [History Confirmed 10/23/16] Primidone 50 MG [Mysoline 50Mg] 50 mg PO DAILY 07/27/16 [History Confirmed 10/23/16] Primidone 50 MG [Mysoline 50Mg] 100 mg PO HS 07/27/16 [History Confirmed ] Promethazine HCl 12.5 mg PO QID PRN PRN 07/27/16 [History Confirmed 10/23/16] Roflumilast [Daliresp] 500 mcg PO HS 07/27/16 [History Confirmed 10/23/16] Tizanidine HCl 2 mg PO HS 07/27/16 [History Confirmed 10/23/16] Trazodone HCl 50 mg [Desyrel 50 mg] 50 mg PO HS 07/27/16 [History Confirmed 10/23/16] Clonazepam 1 mg PO BID 09/05/16 [History Confirmed 10/23/16] Loperamide HCl 2 mg [Imodium 2 mg] 2 mg PO Q4HPRN PRN 09/05/16 [History Confirmed 10/23/16] Ipratropium [place] Hfa [Atrovent HFA MDI] 17 gm IH QID 10/07/16 [History Confirmed 10/23/16] Cyclobenzaprine HCl [Flexeril] 5 mg PO TID PRN 10/23/16 [History Confirmed 10/23] Escitalopram Oxalate [Lexapro] 20 mg PO DAILY 10/23/16 [History Confirmed ] Allergies/Adverse Reactions: Allergies Allergy/AdvReac Type Severity Reaction Status Date / Time aspirin AdvReac Mild Nausea Verified 10/23/16 16:59 [From Aspirin Regimen Cheri/Calcium] calcium carbonate AdvReac Mild Nausea Verified 10/23/16 16:59 [From Aspirin Regimen Cheri/Calcium] - Past Medical History Past Medical History: Yes Neurological History: Dementia, Migraines ENT History: No Pertinent History Cardiac History: No Pertinent History Respiratory History: COPD Endocrine Medical History: Hypothyroidism Musculoskelatal History: Fibromyalgia, Osteoarthritis, Osteoporosis, Other GI Medical History: No Pertinent History, GERD, Hernia History: No Pertinent History Pyscho-Social History: Anxiety, Bipolar, Depression, Eating Disorders, Panic Disorder Reproductive Disorders: Abnormal Uterine Bleeding Comment: NEURO CHANGES TO LEGS AND ARMS - Female History Are you now?: No - Past Surgical History Past Surgical History: Yes Neuro Surgical History: No Pertinent History Cardiac History: No Pertinent History Respiratory Surgery: No Pertinent History GI Surgical History: No Pertinent History Genitourinary Surgical Hx: No Pertinent History Musculskeletal Surgical Hx: No Pertinent History Female Surgical History: Hysterectomy, Tubal Ligation Other Surgical History: scope on lungs,bx done"cleaned my lungs",jaw screws place -had rib bone placed to jaw,fatty tumors removed from back and right hand, right hand nodule removed in september 2011 - Social History Smoking Status: Current some day smoker How long have you smoked: 45 Exposure to second hand smoke: Yes Alcohol: None Drug Use: none Significant Family History: no pertinent family hx - Physical Exam Vital Signs: Vital Signs - 24 hr Temp Pulse Pulse Resp BP Pulse Ox 10/24/16 07:25 98.2 F 93 H 18 101/55 97 10/24/16 06:47 97 H 18 95 10/24/16 04:00 98.7 F 90 22 110/67 97 10/24/16 03:19 91 H 16 95 10/24/16 00:00 98.9 F 97 H 22 113/61 98 10/23/16 20:08 99 H 18 98 10/23/16 20:00 98.7 F 104 H 24 114/61 98 10/23/16 16:41 97.8 F 99 H 20 121/61 97 10/23/16 16:09 97 10/23/16 15:51 98.4 F 10/23/16 15:21 90 22 100/66 99 10/23/16 15:13 93 H 16 99 10/23/16 14:00 88 10/23/16 13:53 98.3 F 89 24 122/68 97 Oxygen-Last 24 hours O2 Percentage 3 Liters = 32% O2 Percentage 2 Liters = 28% O2 Percentage 2 Liters = 28% O2 Percentage 2 Liters = 28% O2 Percentage 2 Liters = 28% O2 Percentage 2 Liters = 28% O2 Percentage 2 Liters = 28% General Appearance: mild distress Neurologic Exam: alert, oriented x 3, cooperative Eye Exam: eyes nml inspection Neck Exam: normal inspection Respiratory Exam: diminished breath sounds, No crackles/rales, No rhonchi, No wheezing Cardiovascular Exam: regular rate/rhythm, normal heart sounds, No murmur Gastrointestinal/Abdomen Exam: soft, normal bowel sounds, No tenderness Back Exam: normal inspection, other (motor grossly intact) Extremity Exam: No pedal edema, No swelling Skin Exam: normal color, warm, dry Results - Labs Lab/Micro Results: Lab Results-Last 24 Hours 10/23/16 10/23/16 10/23/16 Range/Units 17:52 20:40 23:20 Troponin I < 0.017 < 0.017 < 0.017 (0.000-0.056) ng/ml 10/24/16 Range/Units 02:15 Troponin I < 0.017 (0.000-0.056) ng/ml - Other Procedures and Tests Respiratory Therapy 10/23/16 19:00 Oxygen NASAL CANNULA 3 lpm Respiratory MDI BID Respiratory Nebulizer PRN Respiratory Nebulizer QID Assessment/Plan (1) Intractable back pain Current Visit: Yes Status: Acute Assessment & Plan: I have asked Dr. Gonzalez to consult, thank you. Pt is very afraid of surgery, has been told she cannot have anesthesia (extreme caution should be used, of course, wiht her respiratory status) but she seems to agree to at least speak with Dr. Gonzalez and see what he has to offer. Code(s): M54.9 - DORSALGIA, UNSPECIFIED (2) Thoracic compression fracture Current Visit: Yes Status: Acute Qualifiers: Encounter type: subsequent encounter Assessment & Plan: New fracture - see above Code(s): S22.000A - WEDGE COMPRESSION FRACTURE OF UNSP THORACIC VERTEBRA, INIT (3) COPD (chronic obstructive pulmonary disease) Current Visit: Yes Status: Chronic Qualifiers: COPD type: emphysema Assessment & Plan: stable currently (4) Lewy body dementia Current Visit: No Status: Chronic Qualifiers: Dementia behavioral disturbance: without behavioral disturbance Assessment & Plan: Memory spotty, pt very emotional, difficulty making decisions. Code(s): G31.83 - DEMENTIA WITH LEWY BODIES; F02.80 - DEMENTIA IN OTH DISEASES CLASSD ELSWHR W/O BEHAVRL DISTURB (5) Osteonecrosis Current Visit: No Status: Chronic Assessment & Plan: To see Dr. Eng outpatient. She would benefit immensely from rehab at [facility] if she qualifies for a stay. Code(s): M87.9 - OSTEONECROSIS, UNSPECIFIED (6) Poor social situation Current Visit: No Status: Chronic Assessment & Plan: Pt lives with her daughter. Code(s): Z65.9 - PROBLEM RELATED TO UNSPECIFIED PSYCHOSOCIAL CIRCUMSTANCES (7) Tobacco abuse Current Visit: No Status: Chronic Assessment & Plan: Ok nicoderm patch if desired. Code(s): Z72.0 - TOBACCO USE (8) Muscular deconditioning Current Visit: Yes Status: Acute Assessment & Plan: would benefit from rehab stay. Code(s): R29.898 - OTH SYMPTOMS AND SIGNS INVOLVING THE MUSCULOSKELETAL SYSTEM
[2016-10-24] MEDS ORDERED: NON-FORMULARY ITEM (Escitalopram Oxalate [Lexapro] 20 MG) PO SCH (10:00)
[2016-10-24] MEDS: CLARITIN 10 MG PO SCH (10:09)
[2016-10-24] MEDS: Klonopin 0.5 MG PO SCH ×2 (10:09→21:53)
[2016-10-24] MEDS: Protonix 40MG Tablet PO SCH (10:10)
[2016-10-24] MEDS: DELTASONE 10 MG PO SCH (10:10)
[2016-10-24] MEDS: LYRICA 100MG PO SCH ×2 (10:10→21:54)
[2016-10-24] MEDS: Norco 10/325 MG Tablet PO PRN ×3 (10:10→22:28)
[2016-10-24] MEDS: MYSOLINE 50MG PO SCH ×2 (10:10→21:53)
[2016-10-24] MEDS: ENOXAPARIN SODIUM SQ SCH (13:15)
[2016-10-24] MEDS: Nicoderm CQ 21 MG TOP SCH (18:21)
[2016-10-24] MEDS: DALIRESP PO SCH (21:54)
[2016-10-25] MEDS: DUONEB 0.5-3 MG/3 ml Neb IH SCH ×3 (07:00→14:54)
[2016-10-25] MEDS: Advair Hfa 230/21 Mcg COMMON CANISTER IH SCH (07:00)
[2016-10-25] MEDS: ENOXAPARIN SODIUM SQ SCH (08:59)
[2016-10-25] MEDS: DELTASONE 10 MG PO SCH (09:00)
[2016-10-25] MEDS: zyPREXA 5MG TABLET PO SCH (09:00)
[2016-10-25] MEDS: Lexapro 10 MG PO SCH (09:00)
[2016-10-25] MEDS: Klonopin 0.5 MG PO SCH (09:00)
[2016-10-25] MEDS: Protonix 40MG Tablet PO SCH (09:00)
[2016-10-25] MEDS: LYRICA 100MG PO SCH (09:00)
[2016-10-25] MEDS: MYSOLINE 50MG PO SCH (09:00)
[2016-10-25] MEDS: CLARITIN 10 MG PO SCH (09:01)
[2016-10-25] MEDS: Norco 10/325 MG Tablet PO PRN (09:08)
[2016-10-25 12:03] VITALS: BP 111/70
--- NOTE | 2016-10-25 14:05 | PCM.DS ---
Discharge Summary Date of Admission: 10/23/16 16:35 Admitting Physician: JETT RUSSELL Primary Care Provider: JETT RUSSELL Allergies Allergies aspirin [From Aspirin Regimen Cheri/Calcium] Adverse Reaction (Mild, Verified 16:59) Nausea calcium carbonate [From Aspirin Regimen Cheri/Calcium] Adverse Reaction (Mild, Verified 10/23/16 16:59) Nausea Hospital Summary - Hospital Course Hospital Course: Pt with end stage COPD admitted with chest pain and intractable back pain, has new T7 fracture. [facility] ruled out. Has chronic pain from osteonecrosis of the R hip and knee. She continues to have some back pain, states it's better today, 10/18. Dr. Sands was not in favor of doing surgery. She was up in the chair yesterday x 1 hr. Alison po well. Firmly against being admitted to LTCF that is covered by her insurance. Will go home on hospice. - Vitals & Intake/Output Vital Signs: Vital Signs Temperature 98.5 F 10/25/16 12:00 Pulse Rate 105 H 10/25/16 12:00 Respiratory Rate 26 H 10/25/16 12:00 Blood Pressure 111/70 10/25/16 12:00 O2 Sat by Pulse Oximetry 96 10/25/16 12:00 Oxygen-Last Documented O2 Percentage 3 Liters = 32% Intake & Output: Intake & Output 10/23/16 10/24/16 10/25/16 10/26/16 11:59 11:59 11:59 11:59 Intake Total 720 1200 Output Total 1100 1550 Balance -380 -350 Weight 89.131 kg - Lab Result Diagrams: 10/23/16 14:30 10/23/16 14:30 Micro Results-Entire Visit: Microbiology 10/24/16 05:57 - Final Urine, Indwelling Catheter NO GROWTH - Procedures and Test Procedures and Tests throughout Hospitalization: Therapy Orders & Screens 10/23/16 17:06 OT Screen per Nursing Assess Comment: Protocol Order Physician Instructions: Greater than 3 points order OT Admission Screening Reason For Exam: Triggered on Admission Diagnosis: Intractable back pain thoracic compression fx COPD Open Wound/Cellutlitis/Pressure Ulcers: No Acute Fx/ORIF/Change in wt bearing status: Yes Severe MUSCULOSKELETAL pain: Yes ADL Dysfunction: Yes Acute CVA w/Hemiparesis/Hemiplegia: No Decreased Functional Mobility/Strength: Yes Sprain/Strain: No Acute Post-op Mobility Dysfunction: No Total Points: 14 PT Screen per Nursing Assess Comment: Protocol Order Physician Instructions: Greater than 3 points order PT Admission Screenin Reason For Exam: Triggered on Admission Diagnosis: Intractable back pain thoracic compression fx COPD Open Wound/Cellutlitis/Pressure Ulcers: No Acute Fx/ORIF/Change in wt bearing status: Yes Severe MUSCULOSKELETAL pain: Yes ADL Dysfunction: Yes Acute CVA w/Hemiparesis/Hemiplegia: No Decreased Functional Mobility/Strength: Yes Sprain/Strain: No Acute Post-op Mobility Dysfunction: No Total Points: 14 RT Screen per Nursing Assess Comment: Protocol Order Physician Instructions: Greater than 3 points order RT Admission Screen Reason For Exam: Triggered on Admission Diagnosis: Intractable back pain thoracic compression fx COPD Diagnosis: Intractable back pain thoracic compression fx COPD Pneumonia: No Home O2: Yes Asthma: No CHF: No Home CPAP/BIPAP: No Home Nebs/MDI: Yes Total Points: 10 Smoking Cessation Education Comment: Diagnosis: Intractable back pain thoracic compression fx COPD Smoking Status: Current some day smoker How long have you smoked: 45 Have you smoked in the past 12 months: Yes Approximately how many cigarettes per day: 1ppd Do you dip or chew tobacco: No If,Former Smoker,when did you quit: 2 weeks ago 10/23/16 19:00 Oxygen NASAL CANNULA 3 lpm Comment: 3L Diagnosis: Intractable back pain thoracic compression fx COPD Respiratory MDI BID Comment: SHONA 230/21 BID Diagnosis: Intractable back pain thoracic compression fx COPD Respiratory Nebulizer PRN Comment: [place] Q4PRN Diagnosis: Intractable back pain thoracic compression fx COPD Respiratory Nebulizer QID Comment: [place] QID Diagnosis: Intractable back pain thoracic compression fx COPD 10/25/16 08:45 PT Eval & Treat (MD Order) ROUTINE Evaluate: Yes Treat: Yes Reason for Eval:: deconditioning, back fractures. Resistant to trying new exercises. Refusing LTCF admission. Diagnosis: Intractable back pain thoracic compression fx COPD Discharge Exam General Appearance: no apparent distress Neurologic Exam: alert, cooperative, other (answers questions sometimes with inappropriate stories) Skin Exam: normal color, warm, dry Respiratory Exam: normal breath sounds, lungs clear, No crackles/rales, No rhonchi, No wheezing Cardiovascular Exam: regular rate/rhythm, normal heart sounds, No murmur Gastrointestinal/Abdomen Exam: soft, No tenderness, No distention Back Exam: normal inspection, other (spine nttp throughout) Final Diagnosis/Problem List - Final Discharge Diagnosis/Problem (1) Intractable back pain Current Visit: Yes Status: Acute Assessment & Plan: some improvement. Will send pt home on previous medicines. WE did have a discussion about changing her fentanyl patch to morphine po, but I thought at the time that we could do this in a controlled setting (snf); however I am concerned about the accessibility of pills versus patches (regarding diversion) so I will send her home on her previous regimen of pain medicine. She is seeing DR. Eng soon in office, as I will no longer be prescribing her pain meds after that appointment. (2) Thoracic compression fracture Current Visit: Yes Status: Acute (3) COPD (chronic obstructive pulmonary disease) Current Visit: Yes Status: Chronic Assessment & Plan: end stage, home on hospice. (4) Lewy body dementia Current Visit: No Status: Chronic (5) Osteonecrosis Current Visit: No Status: Chronic (6) Poor social situation Current Visit: No Status: Chronic (7) Tobacco abuse Current Visit: No Status: Chronic (8) Muscular deconditioning Current Visit: Yes Status: Acute - Discharge Disposition: Hospice @ [facility] Condition: Stable Prescriptions: Continue Hydrocodone Bit/Acetaminophen [[place] 10-325 Tablet] 1 each PO QID PRN PRN PRN Reason: Pain Prednisone 10 mg [Deltasone 10 mg] 10 mg PO DAILY Loratadine 10 mg [Claritin 10 mg] 10 mg PO DAILY Roflumilast [Daliresp] 500 mcg PO HS Pramipexole Di-HCl [Mirapex] 1 - 2 tablet PO HS PRN PRN PRN Reason: Muscle Spasms Primidone 50 MG [Mysoline 50Mg] 50 mg PO DAILY Bisacodyl 5 mg [Dulcolax 5 mg] 5 mg PO DAILY PRN PRN PRN Reason: Constipation Trazodone HCl 50 mg [Desyrel 50 mg] 50 mg PO HS Pregabalin [Lyrica 100Mg] 200 mg PO BID Promethazine HCl 12.5 mg PO QID PRN PRN PRN Reason: Nausea PANTOPRAZOLE 40 mg Tablet [Protonix 40MG Tablet] 40 mg PO DAILY Tizanidine HCl 2 mg PO HS Amitriptyline HCl 150 mg PO HS Fentanyl [Duragesic 12MCG Patch] 12 mcg TOP Q3D Fentanyl 100 Mcg Patch [Duragesic 100 MCG Patch] 100 mcg TOP Q3D Olanzapine [Zyprexa] 5 mg PO DAILY Primidone 50 MG [Mysoline 50Mg] 100 mg PO HS Albuterol/Ipratropium 3ml Neb* [DUONEB 0.5-3 MG/3 ml Neb] 3 ml IH QID Loperamide HCl 2 mg [Imodium 2 mg] 2 mg PO Q4HPRN PRN PRN Reason: Diarrhea Clonazepam 1 mg PO BID Ipratropium [place] Hfa [Atrovent HFA MDI] 17 gm IH QID Escitalopram Oxalate [Lexapro] 20 mg PO DAILY Cyclobenzaprine HCl [Flexeril] 5 mg PO TID PRN Instructions: Chronic Obstructive Pulmonary Disease Follow up with: SANDER SANDS [ACTIVE STAFF] - 11/06/16 10:00 am JETT RUSSELL [Primary Care Provider] - 10/29/16 9:30 am
[2016-10-25 14:57] VITALS: PULSE 101; O2SAT 98
== END 2016-10-25 16:05 | disposition hospice, home (50) ==
LOC: ED 13:52 → MED SURG 16:35 → INTOOBSV 16:35
PROVIDERS: ADMIT Family Medicine; ATTEND Family Medicine
DX: M54.9 Dorsalgia, unspecified (principal); J44.9 Chronic obstructive pulmonary disease, unspecified; S22.000A Wedge compression fracture of unspecified thoracic vertebra, initial encounter for closed fracture; G31.83 Neurocognitive disorder with Lewy bodies; F02.80 Dementia in other diseases classified elsewhere, unspecified severity, without behavioral disturbance, psychotic disturbance, mood disturbance, and anxiety; M87.9 Osteonecrosis, unspecified; E03.9 Hypothyroidism, unspecified; M79.7 Fibromyalgia; F41.9 Anxiety disorder, unspecified; K21.9 Gastro-esophageal reflux disease without esophagitis; M81.0 Age-related osteoporosis without current pathological fracture; F31.9 Bipolar disorder, unspecified; Z65.9 Problem related to unspecified psychosocial circumstances; Z72.0 Tobacco use; Z79.01 Long term (current) use of anticoagulants; Z79.899 Other long term (current) drug therapy; R29.898 Other symptoms and signs involving the musculoskeletal system
CPT/HCPCS: 36415; 51702; 72072; 72100; 74022; 80053; 81000; 82805; 83690; 84484; 85025; 87086; 93005; 93268; 94640; 94760; 96374; 96375; 99285; G0378; J1170; J1650; J2550; J3010; A9270-GY; J7506